=== PATIENT | male | born 1975 | race Caucasian/White ===

== ENCOUNTER → 2017-02-09 | Outpatient (REF) | payer OTHER ==
[~2017-02-09] MED LIST: LISI20TA3 PO; NICO14PA TD
== END ==
LOC: M SFHCCLAY 14:29
PROVIDERS: ATTEND Nurse Practitioner
DX: M25.571 Pain in right ankle and joints of right foot (principal)

== ENCOUNTER → 2017-02-14 | Outpatient (CLI) | payer OTHER ==
[2017-02-14 20:28] LABS: BASO % 0.5 % (0.0-1.0); EOS # 0.1 K/mm3 (0.0-0.50); EOS % 1.8 % (0.0-3.0); LARGE UNSTAINED CELL # 0.1 K/mm3 (0.0-0.4); LARGE UNSTAINED CELL % 1.8 % (0.0-4.0); LYMPH # 1.9 K/mm3 (1.5-4.5); LYMPH % 25.8 % (24.0-44.0); MEAN CORPUSCULAR HEMOGLOBIN 33.1 pg (27.0-33.0); MEAN CORPUSCULAR VOLUME 94.7 fl (80.0-96.0); MONO # 0.7 K/mm3 (0.0-0.8); MONO % 9.9 % (0.0-5.0); NEUTROPHILS # 4.2 K/mm3 (1.8-7.7); NEUTROPHILS % 60.2 % (36.0-66.0); PLATELET COUNT, AUTOMATED 276 k/mm3 (150-450); WHITE BLOOD COUNT 6.9 K/mm3 (4.0-10.0)
[2017-02-14 21:32] LABS: ERYTHROCYTE SEDIMENTATION RATE 3 mm/hr (0-15)
[2017-02-17 00:06] LABS: Lyme Disease IgG/IgM Antibodie <0.91 ISR (0.00-0.90); Lyme Disease IgM Ab Quantitati <0.80 index (0.00-0.79)
== END ==
LOC: M WUC 12:39
PROVIDERS: ATTEND Orthopaedic Surgery
DX: M25.571 Pain in right ankle and joints of right foot (principal)

== ENCOUNTER → 2017-07-05 | Outpatient (CLI) | payer OTHER ==
[2017-07-05 13:40] LABS: ALBUMIN 4.1 GM/DL (3.2-5.2); ALBUMIN/GLOBULIN RATIO 1.28 (1.00-1.93); ALKALINE PHOSPHATASE 65 U/L (45-117); ALT/SGPT 79 U/L (12-78); ANION GAP 9 MEQ/L (8-16); AST/SGOT 36 U/L (7-37); BILIRUBIN,TOTAL 0.5 MG/DL (0.2-1.0); BLOOD UREA NITROGEN 8 MG/DL (7-18); CALCIUM LEVEL 9.8 MG/DL (8.5-10.1); CARBON DIOXIDE LEVEL 26 MEQ/L (21-32); CHLORIDE LEVEL 106 MEQ/L (98-107); CHOLESTEROL LEVEL 210 MG/DL (<200); CREATININE FOR GFR 0.99 MG/DL (0.70-1.30); GLOMERULAR FILTRATION RATE > 60.0 (>60); GLUCOSE, FASTING 108 MG/DL (70-105); POTASSIUM SERUM 4.5 MEQ/L (3.5-5.1); SODIUM LEVEL 141 MEQ/L (136-145); TOTAL PROTEIN 7.3 GM/DL (6.4-8.2); TRIGLYCERIDES LEVEL 77 MG/DL (<150)
== END ==
LOC: M WUC 08:58
PROVIDERS: ATTEND Family Medicine
DX: I10 Essential (primary) hypertension (principal); R68.82 Decreased libido

== ENCOUNTER → 2018-10-05 | Outpatient (CLI) | payer BC ==
--- NOTE | 2018-10-05 15:09 | REP ---
RIGHT SHOULDER, COMPLETE: 10/05/2018. Clinical history: Shoulder pain, strain. Findings: No prior shoulder exam. AP portable chest 07/04/2016 shows a small portion of the shoulder. AC joint shows no abnormal widening of the joint space or elevation of the clavicle. There is minimal inferior spurring from the acromion and the glenoid representing very minimal degenerative change. No subluxation or dislocation. No abnormal soft tissue calcifications. No visible fracture. Impression: 1. Very minimal degenerative changes of the shoulder as described without fracture, avulsion, subluxation, abnormal soft-tissue calcification or other acute finding. Electronically Signed by Joshua Rice MD 10/05/2018 05:52 P
== END ==
LOC: M WUC 13:00
PROVIDERS: ATTEND Physician Assistant
DX: S46.011D Strain of muscle(s) and tendon(s) of the rotator cuff of right shoulder, subsequent encounter (principal)

== ENCOUNTER 2019-08-28 15:21 | Emergency (ER) | payer BC ==
[~2019-08-28] VITALS: Ht 167.6 cm; Wt 79.3 kg
[~2019-08-28 15:21] MED LIST changes: +LISI20TA20 PO; -LISI20TA3 PO
[2019-08-28 15:53] LABS: VENOUS BASE EXCESS -3.3 (-2.0-2.0); VENOUS O2 SATURATION 35.6 % (60.0-80.0); VENOUS PARTIAL PRESSURE CO2 50.8 mmHg (38.0-50.0); VENOUS PARTIAL PRESSURE O2 23.5 mmHg (30.0-50.0); VENOUS PH 7.292 UNITS (7.330-7.430); VENOUS STANDARD HCO3 20.1 MEQ/L; VENOUS TOTAL CO2 25.5 MEQ/L (24.0-28.0)
[2019-08-28 15:54] LABS: BASO # 0.1 10^3/uL (0.0-0.2); BASO % 0.5 % (0.0-1.0); EOS % 0.3 % (0.0-3.0); HEMATOCRIT 52.7 % (42.0-52.0); LYMPH # 1.9 10^3/uL (1.5-5.0); LYMPH % 20.3 % (24.0-44.0); MEAN CORPUSCULAR HEMOGLOBIN 32.3 pg (27.0-33.0); MEAN CORPUSCULAR HGB CONC 32.3 g/dl (32.0-36.5); MONO # 0.9 10^3/uL (0.0-0.8); MONO % 9.6 % (0.0-5.0); NEUTROPHILS # 6.4 10^3/uL (1.5-8.5); PLATELET COUNT, AUTOMATED 292 10^3/uL (150-450); RED BLOOD COUNT 5.27 10^6/uL (4.30-6.10); WHITE BLOOD COUNT 9.2 10^3/uL (4.0-10.0)
[2019-08-28 15:58] LABS: INR 1.17; PROTHROMBIN TIME 14.6 SECONDS (11.8-14.0)
[2019-08-28] MEDS ORDERED: METOPROLOL TART 25 MG TABLET PO ONE (16:00)
[2019-08-28] MEDS ORDERED: FUROSEMIDE 20 MG/2 ML VIAL (J1940) IV ONE (16:00)
[2019-08-28] MEDS ORDERED: ASPIRIN 81 MG CHEW TABLET PO ONE (16:00)
[2019-08-28] MEDS: METOPROLOL 5 MG/5 ML VIAL IV SCH ×3 (16:05→16:42)
[2019-08-28 16:11] LABS: ALBUMIN 3.3 GM/DL (3.2-5.2); ALT/SGPT 88 U/L (12-78); BILIRUBIN,DIRECT 0.3 MG/DL (0.0-0.2); BILIRUBIN,TOTAL 1.1 MG/DL (0.2-1.0); BLOOD UREA NITROGEN 17 MG/DL (7-18); CALCIUM LEVEL 9.1 MG/DL (8.5-10.1); CARBON DIOXIDE LEVEL 25 MEQ/L (21-32); CHLORIDE LEVEL 105 MEQ/L (98-107); CK-MB VALUE MASS 5.5 NG/ML (<3.6); CPK CREATINE PHOSPHOKINASE 257 U/L (39-308); FREE T4 0.89 NG/DL (0.76-1.46); GLOMERULAR FILTRATION RATE > 60.0 (>60); GLUCOSE, FASTING 119 MG/DL (70-100); LIPASE 96 U/L (73-393); MB/CK RELATIVE INDEX 2.14 (< OR =4); NT-PRO BNP 6161 PG/ML (<125); POTASSIUM SERUM 3.9 MEQ/L (3.5-5.1); SODIUM LEVEL 139 MEQ/L (136-145); TOTAL PROTEIN 6.3 GM/DL (6.4-8.2); TROPONIN I 0.04 NG/ML (< 0.10)
[2019-08-28 16:21] LABS: ETHYL ALCOHOL (ETHANOL) < 0.003 % (0.000-0.010)
--- NOTE | 2019-08-28 16:23 | REP ---
Clinical: Chest pain . Comparison: 07/04/2016 . Technique: PA and lateral. Findings: The mediastinum and cardiac silhouette are able cardiomegaly is again suspected. The lung glover are clear and without acute consolidation, effusion, or pneumothorax. The skeletal structures are intact and normal. Impression: 1. Cardiomegaly again suggested. 2. No focal consolidation or effusion. Electronically Signed by Jose Alexandre MD 08/28/2019 04:14 P
[2019-08-28 16:42] VITALS: BP 130/101
[2019-08-28] MEDS ORDERED: KETOROLAC 30 MG/ML VIAL (J1885) IV ONE (17:00)
[2019-08-28 18:03] LABS: MAGNESIUM LEVEL 1.9 MG/DL (1.8-2.4)
--- NOTE | 2019-08-28 18:11 | REPVR ---
PROCEDURE INFORMATION: Exam: CT Abdomen And Pelvis Without Contrast Exam date and time: 08/28/2019 5:06 PM Age: 44 years old Clinical indication: Abdominal pain; Generalized; Additional info: Flank pain TECHNIQUE: Imaging protocol: Computed tomography of the abdomen and pelvis without contrast. Radiation optimization: All CT scans at this facility use at least one of these dose optimization techniques: automated exposure control; mA and/or kV adjustment per patient size (includes targeted exams where dose is matched to clinical indication); or iterative reconstruction. COMPARISON: No relevant prior studies available. FINDINGS: Lungs: RIGHT posterior pulmonary partial passive atelectasis. Pleural space: Small RIGHT pleural effusion. Heart: Small anterior pericardial effusion. Liver: Normal. No mass. Gallbladder and bile ducts: Normal. No calcified stones. No ductal dilation. Pancreas: Moderate pancreatic atrophy. Spleen: Normal. No splenomegaly. Adrenals: Normal. No mass. Kidneys and ureters: LEFT renal lower pole 1.2 mm calyceal calculus. Stomach and bowel: Unremarkable. No obstruction. No mucosal thickening. Appendix: No evidence of appendicitis. Intraperitoneal space: Unremarkable. No free air. No significant fluid collection. Vasculature: Moderate abdominal aortic atherosclerotic calcification without aneurysm. The iliac arteries show mild bilateral atherosclerotic calcifications without evidence of aneurysm. Prominent SVC and bilateral iliac veins suggesting elevated systemic venous pressures. Atherosclerotic calcifications are present involving the RCA coronary artery. Lymph nodes: Small LEFT infrarenal para-aortic lymph nodes measuring up to 11.4 mm short axis. Bladder: Unremarkable as visualized. Reproductive: Unremarkable as visualized. Bones/joints: L4-5 and L5-S1 spondylosis with bilateral neural foraminal stenosis. Soft tissues: Mild anasarca. Other findings: Mild nonspecific presacral edema. IMPRESSION: 1. Mild LEFT renal calyceal lithiasis. 2. Mild nonspecific presacral edema. 3. Prominent SVC and bilateral iliac veins suggesting elevated systemic venous pressures. 4. Coronary atherosclerosis. 5. Small RIGHT pleural effusion. 6. Small anterior pericardial effusion. Electronically signed by: Trung Morataya On 08/28/2019 18:10:58 PM
[2019-08-28 19:00] VITALS: BP 137/99
[2019-08-28] MEDS ORDERED: ONDANSETRON 4MG/2ML VIAL (J2405) IV ONE (19:30)
--- NOTE | 2019-08-28 20:23 | ECGEPIP ---
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
[2019-08-30 09:33] LABS: HEPATITIS B SURFACE ANTIGEN NEGATIVE (NEGATIVE)
[2019-08-30 09:59] LABS: HEPATITIS C VIRUS ABY INDEX 0.2 INDEX (<0.8)
[2019-08-30 10:00] LABS: HEPATITIS B CORE ANTIBODY IGM NEGATIVE (NEGATIVE)
[2019-08-30 10:02] LABS: HEPATITIS A ANTIBODY IGM NEGATIVE (NEGATIVE)
== END 2019-08-28 19:20 | disposition short-term general hospital (02) ==
LOC: M ED 15:21
DX: I47.2 Ventricular tachycardia (principal); I50.9 Heart failure, unspecified; I31.3 Pericardial effusion (noninflammatory); I11.0 Hypertensive heart disease with heart failure; F17.210 Nicotine dependence, cigarettes, uncomplicated
CPT/HCPCS: 71046; 74176; 80048; 80076; 82550; 82553; 82803; 83690; 83735; 83880; 84439; 84443; 84484; 85025; 85610; 86705; 86709; 86803; 87340; 93005; 93041; 96374; 96375; 99291; G0480; J1940; J2405

== ENCOUNTER → 2019-10-04 | Outpatient (CLI) | payer BC ==
[2019-10-04 14:01] LABS: BLOOD UREA NITROGEN 11 MG/DL (7-18); CALCIUM LEVEL 8.8 MG/DL (8.5-10.1); CARBON DIOXIDE LEVEL 30 MEQ/L (21-32); CHLORIDE LEVEL 105 MEQ/L (98-107); CREATININE FOR GFR 0.69 MG/DL (0.70-1.30); GLOMERULAR FILTRATION RATE > 60.0 (>60); GLUCOSE, FASTING 78 MG/DL (70-100); POTASSIUM SERUM 4.1 MEQ/L (3.5-5.1); SODIUM LEVEL 140 MEQ/L (136-145)
== END ==
LOC: M PLALAB 11:00
PROVIDERS: ATTEND Physician Assistant
DX: I42.6 Alcoholic cardiomyopathy (principal)

== ENCOUNTER → 2019-10-11 | Outpatient (REF) | payer BC | LOC: M SMT 16:52 | PROVIDERS: ATTEND Nurse Practitioner Family | DX: R10.819 Abdominal tenderness, unspecified site (principal) ==

== ENCOUNTER → 2019-12-06 | Outpatient (CLI) | payer BC ==
--- NOTE | 2019-12-06 14:36 | REP ---
ULTRASOUND ANTERIOR ABDOMINAL WALL: Real-time sonographic evaluation of the anterior abdominal wall performed with special attention paid to the infraumbilical region where there is pain. There is no evidence of anterior abdominal wall defect in the region of the umbilicus or inferiorly. Scattered soft tissue edema is seen along the incision site at that location. No mass or fluid collection is seen. IMPRESSION: No evidence of anterior abdominal wall hernia in the region of the umbilicus or infraumbilical region. There appears to be edema in the soft tissues along the prior surgical incision. Electronically Signed by Richard Stone MD 12/06/2019 03:00 P
== END ==
LOC: M RAD 12:24
PROVIDERS: ATTEND Physician Assistant Surgical
DX: R10.9 Unspecified abdominal pain (principal)

== ENCOUNTER → 2019-12-17 | Outpatient (REF) | payer BC ==
[2019-12-17 13:38] LABS: CHOLESTEROL RISK RATIO 2.202 (<5)
== END ==
LOC: M SFHCPLAZ 09:50
PROVIDERS: ATTEND Family Medicine
DX: Z00.00 Encounter for general adult medical examination without abnormal findings (principal)

== ENCOUNTER 2020-06-29 20:58 | Inpatient (IN) | payer BC, MEDICAID, OTHER, SELFPAY ==
[~2020-06-29] VITALS: Ht 167.6 cm; Wt 82.7 kg
[2020-06-29] MEDS ORDERED: MORPHINE 4 MG/ML 1ML VIAL/SYRINGE (J2270) IV ONE (21:30)
[2020-06-29] MEDS ORDERED: ONDANSETRON 4MG/2ML VIAL IV ONE (21:30)
[2020-06-29] MEDS ORDERED: SPIRONOLACTONE 25 MG TAB PO ONE (21:30)
[2020-06-29] MEDS ORDERED: CARVedilol 12.5 MG TAB PO ONE (21:30)
[2020-06-29] MEDS ORDERED: CARV25TA (21:46)
[2020-06-29] MEDS ORDERED: SPIR-10 (21:46)
[2020-06-29] MEDS ORDERED: DOCU-129 (21:46)
[2020-06-29] MEDS ORDERED: ENTR1TAB7 (21:46)
[2020-06-29] MEDS ORDERED: WARF-20 (21:46)
[2020-06-29 21:51] LABS: BASO % 0.2 % (0.0-1.0); HEMATOCRIT 47.3 % (42.0-52.0); HEMOGLOBIN 16.2 g/dl (13.5-17.5); LYMPH # 0.8 10^3/uL (1.5-5.0); LYMPH % 7.2 % (24.0-44.0); MEAN CORPUSCULAR HEMOGLOBIN 32.3 pg (27.0-33.0); MEAN CORPUSCULAR HGB CONC 34.2 g/dl (32.0-36.5); MEAN CORPUSCULAR VOLUME 94.4 fl (80.0-96.0); MONO # 1.2 10^3/uL (0.0-0.8); MONO % 10.7 % (0.0-5.0); NEUTROPHILS # 9.1 10^3/uL (1.5-8.5); NEUTROPHILS % 81.5 % (36.0-66.0); PLATELET COUNT, AUTOMATED 210 10^3/uL (150-450); RED BLOOD COUNT 5.01 10^6/uL (4.30-6.10); WHITE BLOOD COUNT 11.2 10^3/uL (4.0-10.0)
[2020-06-29] MEDS: NS 1,000 ML IV SCH (21:59)
[2020-06-29 22:01] LABS: INR 1.16; PROTHROMBIN TIME 15.1 SECONDS (12.5-14.3)
[2020-06-29 22:02] LABS: PARTIAL THROMBOPLASTIN TIME 27.1 SECONDS (24.2-38.5)
--- NOTE | 2020-06-29 22:02 | REPVR ---
PROCEDURE INFORMATION: Exam: XR Chest, 1 View Exam date and time: 06/29/20 (9:32pm) Age: 44 years old Clinical indication: Hypertension TECHNIQUE: Imaging protocol: XR of the chest Views: 1 view COMPARISON: Chest films of 08/28/19 FINDINGS: Comparison is made with chest films done on 08/28/19. Stable cardiomegaly. Previous sternotomy. S/P cardiac valve replacement. Atrial appendage clip in place. AICD device, with shock coil in the right ventricle. No focal infiltrates. No pleural effusions. No gross cardiac failure. No pneumothorax. IMPRESSION: No acute chest pathology. Lung glover are clear. Stable cardiomegaly. No gross cardiac failure. See additional comments above. Electronically signed by: Mela Haque On 06/29/2020 22:01:22 PM
[2020-06-29 22:26] LABS: ALBUMIN 4.2 GM/DL (3.2-5.2); ALT/SGPT 45 U/L (12-78); BILIRUBIN,DIRECT 0.3 MG/DL (0.0-0.2); BILIRUBIN,TOTAL 1.1 MG/DL (0.2-1.0); BLOOD UREA NITROGEN 18 MG/DL (7-18); CALCIUM LEVEL 10.1 MG/DL (8.5-10.1); CARBON DIOXIDE LEVEL 21 MEQ/L (21-32); CHLORIDE LEVEL 109 MEQ/L (98-107); CK-MB VALUE MASS 2.2 NG/ML (<3.6); CPK CREATINE PHOSPHOKINASE 131 U/L (39-308); CREATININE FOR GFR 1.28 MG/DL (0.70-1.30); GLOMERULAR FILTRATION RATE > 60.0 (>60); GLUCOSE, FASTING 127 MG/DL (70-100); LIPASE 52 U/L (73-393); MB/CK RELATIVE INDEX 1.68 (< OR =4); SODIUM LEVEL 140 MEQ/L (136-145); TOTAL PROTEIN 7.5 GM/DL (6.4-8.2); TROPONIN I < 0.02 NG/ML (< 0.10)
[2020-06-29] MEDS ORDERED: LORazepam 2 MG/ML VIAL IV STA (22:50)
[2020-06-29] MEDS: GASTROGRAFIN SOLUTION 30ML PO SCH (22:53)
[2020-06-29] MEDS ORDERED: NS 1,000 ML IV ONE (23:00)
[2020-06-30] MEDS: GASTROGRAFIN SOLUTION 30ML PO SCH (00:06)
[2020-06-30 00:14] LABS: ETHYL ALCOHOL (ETHANOL) 0.003 % (0.000-0.010)
--- NOTE | 2020-06-30 02:06 | REPVR ---
PROCEDURE INFORMATION: Exam: CT Abdomen And Pelvis With Contrast Exam date and time: 06/30/2020 1:13 AM Age: 44 years old Clinical indication: Vomiting; Abdominal pain; Generalized TECHNIQUE: Imaging protocol: Computed tomography of the abdomen and pelvis with intravenous contrast. Radiation optimization: All CT scans at this facility use at least one of these dose optimization techniques: automated exposure control; mA and/or kV adjustment per patient size (includes targeted exams where dose is matched to clinical indication); or iterative reconstruction. Contrast material: ISOVUE 370; Contrast volume: 100 ml; Contrast route: INTRAVENOUS (IV); COMPARISON: CT ABD PELVIS W/O CONTRAST 08/28/2019 5:04 PM FINDINGS: Tubes, catheters and devices: An ICD lead is noted terminating in the right ventricle. Lungs: There is mild bibasilar atelectasis. Incidental note is made of a 2 mm juxtapleural nodule in the right middle lobe, which is unchanged compared to the prior CT on 08/28/2019 and for which further follow-up is not indicated. The lungs were not fully imaged. Heart: An aortic valve prosthesis, mitral valve prosthesis, and left atrial appendage clip are noted. No cardiomegaly or pericardial effusion is seen. There are coronary artery calcifications. Mediastinal space: There is ingested contrast material in the esophagus, which may indicate gastroesophageal reflux. Liver: The attenuation of the liver is more than 40 Hounsfield units lower in attenuation compared to the spleen, which is compatible with fatty liver infiltration. Incidental note is made of a 4 mm cyst in the superior portion of the right hepatic lobe, for which follow-up imaging is not indicated. The contour of the liver is smooth. No hepatomegaly. Gallbladder and bile ducts: The gallbladder is distended. No calcified gallstones are seen. No gallbladder wall thickening, pericholecystic fluid, or pericholecystic inflammatory changes are identified. No dilation of the bile ducts is noted. No calcified stones are seen in the common bile duct. Pancreas: Normal. No dilation of the main pancreatic duct is noted. There is no inflammatory fat stranding around the pancreas to suggest acute pancreatitis. Spleen: Normal. No splenomegaly is noted. Adrenal glands: Normal. No adrenal mass is noted. Kidneys and ureters: The kidneys are normal in appearance. No renal lesion is noted. No stones are noted in the kidneys or ureters. There is no hydronephrosis or hydroureter. There are no wedge-shaped areas of low attenuation in the kidneys to suggest pyelonephritis. There is no renal abscess or perinephric fluid collection. Stomach and bowel: The stomach and small bowel are unremarkable. Postoperative changes are noted from a right hemicolectomy and ileocolonic anastomosis. No anastomotic leak is noted. No perforated viscus, bowel obstruction, colitis, or diverticulitis is noted. Appendix: The appendix has been removed. Intraperitoneal space: No free air. No ascites. No asbcess. Retroperitoneal space: No fluid collection. No mass. Vasculature: There is a filling defect in the segmental pulmonary artery supplying the superior segment of the right lower lobe, which is compatible with an acute pulmonary embolism (images 1-3 of the axial series 201). The pulmonary arteries were not fully imaged. There is also a small filling defect in the superior vena cava, which is compatible with a nonocclusive thrombus (images 1-6 of the axial series 201). The superior vena cava was not fully imaged. The abdominal aorta is patent, normal in caliber, and there is no dissection. The iliac arteries, common femoral arteries, renal arteries, celiac artery, superior mesenteric artery, and inferior mesenteric artery are patent. There are mild to moderate atherosclerotic calcifications. Lymph nodes: No enlarged lymph nodes. Urinary bladder: There is thickening of the wall of the partially distended urinary bladder. No calculi are noted in the bladder. Reproductive: The prostate gland and seminal vesicles are unremarkable. Bones/joints: There is no fracture or dislocation. No suspicious osteolytic or osteoblastic lesion. There are degenerative changes involving the lumbar spine. Median sternotomy suture wires are in place. Soft tissues: There is a midline vertical incision scar in the anterior abdominal wall. There is a small fat containing ventral hernia located approximately 2 cm above the umbilicus and just to the right of a midline vertical incisional scar. No soft tissue fluid collection is noted. IMPRESSION: 1. Acute pulmonary embolism in the segmental pulmonary artery supplying the superior segment of the right lower lobe. 2. Nonocclusive thrombus in the superior vena cava. 3. Evidence for gastroesophageal reflux. 4. Small fat containing ventral hernia located approximately 2 cm above the umbilicus and just to the right of a midline vertical incisional scar. 5. Status post right hemicolectomy and ileocolonic anastomosis. No bowel obstruction. 6. Thickening of the wall of the urinary bladder, which may be secondary to its partially distended state, bladder wall hypertrophy, or cystitis. Correlation with urinalysis is suggested. Electronically signed by: Tomas Hahn On 06/30/2020 02:06:06 AM
[2020-06-30] MEDS ORDERED: HEPARIN DRIP 25,000 UNITS in IV 1 EA IV SCH (02:24)
[2020-06-30] MEDS ORDERED: HEPARIN SOD (PORCINE) 5000UNITS/ML 1ML VIAL/SYRINGE IV ONE (02:30)
[2020-06-30 02:59] LABS: NT-PRO BNP 4901 PG/ML (<125)
[2020-06-30] MEDS ORDERED: LORazepam 2 MG TAB PO PRN (03:00)
[2020-06-30] MEDS: THIAMINE 100 MG TAB PO SCH ×2 (03:19→10:16)
--- NOTE | 2020-06-30 03:27 | REPVR ---
PROCEDURE INFORMATION: Exam: US Duplex Lower Extremity Veins, Bilateral Exam date and time: 06/30/20 (2:49am) Age: 44 years old Clinical indication: Screening exam. CT scan shows pulmonary embolism. Evaluate for DVT. TECHNIQUE: Imaging protocol: Real-time duplex ultrasound of the extremities with 2-D mckeon scale, color Doppler flow and spectral waveform analysis with image documentation. Complete exam focused on the bilateral lower extremity veins. COMPARISON: No relevant prior studies available FINDINGS: Right deep veins: Unremarkable. The common femoral, femoral, proximal profunda femoral and popliteal veins are patent without thrombus. Normal Doppler waveforms. Normal compressibility and/or augmentation response. Right superficial veins: Saphenofemoral junction is patent without thrombus. Left deep veins: Unremarkable. The common femoral, femoral, proximal profunda femoral and popliteal veins are patent without thrombus. Normal Doppler waveforms. Normal compressibility and/or augmentation response. Left superficial veins: Saphenofemoral junction is patent without thrombus. Soft tissues: Unremarkable. IMPRESSION: No evidence of deep vein thrombosis (both legs examined). Electronically signed by: Mela Haque On 06/30/2020 03:26:42 AM
[2020-06-30] MEDS ORDERED: ONDANSETRON 4MG/2ML VIAL IV PRN ×2 (03:30→22:00)
[2020-06-30] MEDS ORDERED: ENTR1TAB7 PO (03:36)
[2020-06-30] MEDS ORDERED: WARF-20 PO ×2 (03:36)
[2020-06-30] MEDS ORDERED: CARV25TA PO (03:36)
[2020-06-30] MEDS ORDERED: ACET25TA12 PO (03:36)
[2020-06-30] MEDS ORDERED: SPIR-10 PO (03:36)
[2020-06-30] MEDS ORDERED: DOCU100C16 PO (03:36)
[2020-06-30 03:50] VITALS: BP 139/89
--- NOTE | 2020-06-30 03:53 | HPEPDOC ---
[facility] Medical History & Physical Date of Admission Jun 30, 2020 Date of Service: Jun 30, 2020 Primary Care Physician: HUSSEIN CHACON DO Attending Physician: KILO MARCIAL MD History and Physical CHIEF COMPLAINT: Abdominal pain and vomiting HISTORY OF PRESENT ILLNESS: Patient is a 44-year-old male who presented to the emergency department with a 2 to 3 day history of worsening abdominal pain as well as a 24 hour history of vomiting. Patient says that he started feeling nauseous at 4 AM on 06/29/2020 and has been vomiting since. Patient says is small trash can in the bathroom which is filled up about two [address] with vomit. Patient states that his vomit is yellow and does not have any blood or coffee-ground material in it. Patient denies having any diarrhea at this time. Patient does have a history of dominant surgery rehabilitation hemicolectomy for bowel ischemia. Patient says he feels a lump in his abdomen that is worse when he sits up. Patient states he's not been able to keep anything down over the last 24 hours and this was the first day that he was unab le to take his medications. 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 Patient states he's been taking the same dose of his warfarin but has not had an INR drawn in a few months. Patient denies have any difficulty breathing. Patient states he's had shoulder pain in his right shoulder blade but this has been present for many months. PAST MEDICAL HISTORY: 1. Heart failure with reduced ejection fraction. 2. Alcoholic cardiomyopathy. 3. Severe mitral regurgitation status post mitral bioprosthetic valve replacement. 4. Moderate aortic regurgitation status post aortic bioprosthetic valve replace ment 5. Hypertension 6. History of alcoholism PAST SURGICAL HISTORY: 1. Bioprosthetic mitral valve replacement. 2. Bioprosthetic aortic valve replacement. 3. Right hemicolectomy secondary to colonic ischemia and pseudoobstruction. 4. AICD SOCIAL HISTORY: Patient currently lives at home alone. Patient had quit smoking however, due to lack of insurance and unable to get nicotine patches he is now smoking 10-15 cigarettes a day. Patient says he does drink about 2-3 times a week when he does drink he drinks 6-10 beers. Patient uses marijuana but denies any other illicit drug use. 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 FAMILY HISTORY: Both parents are alive, mom has lupus ALLERGIES: Please see below. REVIEW OF SYSTEMS: General: Patient denies fevers HEENT: Patient denies headaches Cardiovascular: Patient denies chest pain Respiratory: Patient denies shortness of breath, cough GI: Patient denies abdominal pain, nausea, vomiting, diarrhea : Patient denies increased frequency or pain with urination Extremities: Patient denies swelling or pain in extremities Neurological: Patient denies numbness or tingling in legs Skin: Patient denies any new rashes or lesions. Hematologic: Patient denies any easy bruising. Lymphatic: Patient denies any lumps lumps or bumps in neck, axilla, or groin HOME MEDICATIONS: Please see below. PHYSICAL EXAMINATION: VITAL SIGNS: See below General: Alert and oriented male patient who was sitting on the stretcher in the emergency department when I walked in the room. Patient did not appear to be in any acute distress. HEENT: Normocephalic, atraumatic, moist mucous membranes. Neck: No lymphadenopathy or thyromegaly Cardiac: Regular rate and rhythm, 1/6 systolic murmur is heard both over the right second intercostal space and over the apex. Pulm: Clear to auscultation bilaterally. No wheezes, rhonchi, rales Abd: Nondistended, mildly tender to palpation worse on the left lower quadrant and in the epigastric area. There is a reducible incisional hernia present superior to the umbilicus that is more pronounced patient contracts his abdominal muscles. Ext: No edema bilateral lower extremities, 2/4 posterior tibial and dorsalis pedis pulses bilaterally LABORATORY DATA: See below. IMAGING: A chest x-ray performed on 06/29/2020 was reported to show no acute chest pathology, lung glover are clear, stable cardiomegaly, no gross cardiac failure. A CT of the abdomen and pelvis with IV and oral contrast performed on 06/29/2020 was reported to show acute pulmonary embolism in the segmental pulmonary artery supplying the superior segment of the right lower lobe. Nonocclusive thrombus in the superior vena cava, evidence for Gastroesophageal reflux, small fat- containing ventral hernia located approximately 2 cm above the umbilicus just to the right of midline vertical incisional scar. Status post right hemicolectomy with ileocolonic anastomosis, no bowel obstruction. Thickening of the wall of the urinary bladder which may be secondary to his partial dissented state, bladder wall hypertrophy, or cystitis correlation with urinalysis is suggestive. Duplex lower extremity venous ultrasound performed of the bilateral lower extremities on 06/30/2020 was reportedly showed no evidence of DVT bilaterally MICROBIOLOGY: Please see below. ASSESSMENT: Patient is a 44-year-old male who presented to the hospital with abdominal pain with a 24 hour history of vomiting who was found to have a submassive pulmonary embolism. . PLAN: 1. Pulmonary embolism. Patient is on warfarin however, he has not followed up with the INR clinic for a few months due to lack of insurance. Patient has been taking his regular dose of warfarin since then both unable to take a dose this morning as he was vomiting. Patient's current INR was 1.16. Because of this, the patient was started on a heparin drip so that he can be bridged to a therapeutic range on his warfarin. Patient was advised to follow-up with the INR clinic once he is discharged. 2. Nausea/vomiting. Patient stated last time he had nausea/vomiting like this is when he was found to have severe heart failure and a pericardial effusion back in August 2019. Patient says that the vomiting has slowed down and he is only vomited once since being in the emergency department. Patient does not have any evidence of obstruction. Zofran has been given to the patient and we will advance the patient's diet as tolerated. 3. Heart failure with reduced ejection fraction. Patient currently appears compensated on exam. Patient had an echocardiogram that was performed on 12/12/2019 which was reported to show a normal left ventricular size with mild life in ventricular hypertrophy and severe global hypokinesis. Estimated left ventricular ejection fraction is 15-20%. Grade 2 diastolic dysfunction. Normally functioning bioprosthesis in aortic position. Normal functioning bioprosthesis and mitral position. Likely elevated central venous pressure moderate pulmonary hypertension. Borderline dilated aortic root (3.8 centimeter). Compared to echocardiogram report from August 2019 there appears to be further decline in left restrictive systolic function, otherwise studies very similar. At this time, we will continue with the patient's home medications. 4. History of alcoholism, recent alcohol use. Patient says his last time drinking any alcohol was on 06/27/2020. Because of this, and the patient's history of heavy alcohol abuse, patient has been placed on CIWA protocol. We will continue to monitor the patient. 5. Hypertension. We'll continue with the patient's home medications. 6. DVT prophylaxis: Patient is currently on a heparin drip. 7. CODE STATUS: Full code Vital Signs Vital Signs Date Time Temp Pulse Resp B/P (MAP) Pulse Ox O2 Delivery O2 Flow Rate FiO2 06/30/20 02:00 133/75 (94) 06/30/20 01:58 86 19 96 Room Air 06/29/20 20:58 96.3 Laboratory Data Labs 24H Laboratory Tests 2 06/29/20 21:36: Prothrombin Time 15.1H, Prothromb Time International Ratio 1.16, Activated Partial Thromboplast Time 27.1, Anion Gap 10, Glomerular Filtration Rate > 60.0, Calcium Level 10.1, Total Bilirubin 1.1H, Direct Bilirubin 0.3H, Aspartate Amino Transf (AST/SGOT) 28, Alanine Aminotransferase (ALT/SGPT) 45, Alkaline Phosphat ase 66, Total Creatine Kinase 131, Creatine Kinase MB 2.2, Creatine Kinase MB Relative Index 1.68, Troponin I < 0.02, OM-Cjw-Y-Type Natriuretic Peptide 4901H, Total Protein 7.5, Albumin 4.2, Albumin/Globulin Ratio 1.3, Lipase 52L, Ethyl Alcohol Level 0.003 06/29/20 21:37: Immature Granulocyte % (Auto) 0.4, Neutrophils (%) (Auto) 81.5H, Lymphocytes (%) (Auto) 7.2L, Monocytes (%) (Auto) 10.7H, Eosinophils (%) (Auto) 0.0, Basophils (%) (Auto) 0.2, Neutrophils # (Auto) 9.1H, Lymphocytes # (Auto) 0.8L, Monocytes # (Auto) 1.2H, Eosinophils # (Auto) 0.0, Basophils # (Auto) 0.0, Nucleated Red Blood Cells % (auto) 0.0 CBC/BMP Laboratory Tests 06/29/20 21:36 06/29/20 21:37 Home Medications Scheduled Acetaminophen/Diphenhydramine (Acetaminophen Pm Caplet) 1 Each Tablet, 2 TAB PO QHS Carvedilol (Carvedilol) 25 Mg Tablet, 25 MG PO BID Docusate Sodium (Docusate Sodium) 100 Mg Capsule, 100 MG PO DAILY Sacubitril/Valsartan (Entresto 49 mg-51 mg Tablet) 1 Each Tablet, 1 TAB PO BID Spironolactone (Spironolactone) 25 Mg Tablet, 25 MG PO DAILY Warfarin Sodium (Warfarin Sodium) 4 Mg Tablet, 8 MG PO 4XWK Warfarin Sodium (Warfarin Sodium) 4 Mg Tablet, 4 MG PO 3XW Scheduled PRN Nitroglycerin (Nitrostat) 0.4 Mg Tab.subl, 0.4 MG SL NITRO PRN for CHEST PAIN Allergies Coded Allergies: No Known Drug Allergies (Verified Allergy, Unknown, 08/28/19) A-FIB/CHADSVASC A-FIB History Current/History of A-Fib/PAF?: No GME ATTESTATION GME ATTESTATION My faculty preceptor for this patient encounter was physically present during the encounter and was fully available. All aspects of the patient interview, examination, medical decision making process, and medical care plan development were reviewed and approved by the faculty preceptor. The faculty preceptor is aware and concurs with the plan as stated in the body of this note and will attest to such by his/her cosignature. ATTENDING NOTE TIME OF SERVICE 525AM I reviewed the H&P and agree with the findings as documented by . ALICIA MYERS DO Jun 30, 2020 03:53 KILO MARCIAL MD Jun 30, 2020 06:50
[2020-06-30] MEDS: NS 1,000 ML IV SCH (04:20)
[2020-06-30] MEDS ORDERED: NITR4TASL SL (04:38)
[2020-06-30 06:50] LABS: BASO % 0.2 % (0.0-1.0); EOS % 0.3 % (0.0-3.0); HEMATOCRIT 41.4 % (42.0-52.0); LYMPH # 1.6 10^3/uL (1.5-5.0); LYMPH % 16.4 % (24.0-44.0); MEAN CORPUSCULAR HEMOGLOBIN 33.1 pg (27.0-33.0); MEAN CORPUSCULAR HGB CONC 34.1 g/dl (32.0-36.5); MEAN CORPUSCULAR VOLUME 97.2 fl (80.0-96.0); MONO # 1.4 10^3/uL (0.0-0.8); MONO % 15.1 % (0.0-5.0); NEUTROPHILS # 6.4 10^3/uL (1.5-8.5); NEUTROPHILS % 67.4 % (36.0-66.0); PLATELET COUNT, AUTOMATED 164 10^3/uL (150-450); RED BLOOD COUNT 4.26 10^6/uL (4.30-6.10); WHITE BLOOD COUNT 9.5 10^3/uL (4.0-10.0)
[2020-06-30 06:59] LABS: HEMOGLOBIN 14.1 g/dl (13.5-17.5)
[2020-06-30 08:02] LABS: ALBUMIN 3.4 GM/DL (3.2-5.2); ALT/SGPT 38 U/L (12-78); BILIRUBIN,DIRECT 0.3 MG/DL (0.0-0.2); BILIRUBIN,TOTAL 1.1 MG/DL (0.2-1.0); BLOOD UREA NITROGEN 15 MG/DL (7-18); CALCIUM LEVEL 8.7 MG/DL (8.5-10.1); CARBON DIOXIDE LEVEL 24 MEQ/L (21-32); CHLORIDE LEVEL 108 MEQ/L (98-107); CREATININE FOR GFR 1.08 MG/DL (0.70-1.30); GLOMERULAR FILTRATION RATE > 60.0 (>60); GLUCOSE, FASTING 100 MG/DL (70-100); MAGNESIUM LEVEL 1.9 MG/DL (1.8-2.4); POTASSIUM SERUM 3.8 MEQ/L (3.5-5.1); SODIUM LEVEL 140 MEQ/L (136-145)
[2020-06-30] MEDS ORDERED: HEPARIN SOD (PORCINE) 5000UNITS/ML 1ML VIAL/SYRINGE IV PRN (09:00)
--- NOTE | 2020-06-30 09:30 | ECGEPIP ---
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
[2020-06-30] MEDS: HEPARIN DRIP 25,000 UNITS in IV 1 EA IV SCH (09:54)
[2020-06-30] MEDS: CARVedilol 12.5 MG TAB PO SCH ×2 (10:17→20:59)
[2020-06-30] MEDS: MULTIVITAMINS/MINERALS THERAP 1 TAB PO SCH (10:17)
[2020-06-30] MEDS: FOLIC ACID 1 MG TAB PO SCH (10:17)
[2020-06-30] MEDS: SPIRONOLACTONE 25 MG TAB PO SCH (10:17)
[2020-06-30] MEDS: ACETAMINOPHEN TAB 650MG DOSE (2X325MG) PO PRN ×2 (10:18→17:09)
[2020-06-30] MEDS: NICOTINE 14 MG/24 HR TRANSDERMAL TD SCH (10:18)
[2020-06-30] MEDS: DOCUSATE SODIUM 100 MG CAP PO SCH (10:18)
[2020-06-30 10:20] VITALS: BP 132/85
--- NOTE | 2020-06-30 10:59 | IPNPDOC ---
Text Note Date of Service The patient was seen on 06/30/20. 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 Patient had resolution of his symptoms. Upon arrival to emergency room, however, CT scan of his abdomen and pelvis had revealed there is a pulmonary embolism. His right lower lung. Patient reports that he has been on Coumadin as an outpatient but has been noncompliant for last 3 days. He also reports that he has not checked his INR in the last 2 months. Patient reports that he has lost insurance coverage. He has been admitted to hospital service for further evaluation.. Patient was seen and examined at the bedside. Currently patient denies any chest pain, shortness breath, palpitations, nausea, vomiting, abdominal pain, constipation, diarrhea, or urinary discomfort. Objective: Vitals (See below) General: Lying in bed, appears comfortable, AAOx3 HEENT: NC, AT CVS: +S1S2 Lungs: Fair air entry b/l, no appreciable wheezing, rhonchi or rales Abdomen: Soft, ND, NT Extremities: - Edema, - Calf tenderness Assessment and plan: Pulmonary embolism - etiology unclear - Patient is saturating well on room air - Patient has been noncompliant with his warfarin - INR subtherapeutic - Duplex US 06/30: No evidence of deep vein thrombosis (both legs examined). - Abdomen / Pelvis CT 06/30: 1. Acute pulmonary embolism in the segmental pulmonary artery supplying the superior segment of the right lower lobe. 2. Nonocclusive thrombus in the superior vena cava. 3. Evidence for gastroesophageal reflux. 4. Small fat containing ventral hernia located approximately 2 cm above the umbilicus and just to the right of a midline vertical incisional scar. 5. Status post right hemicolectomy and ileocolonic anastomosis. No bowel obstruction. 6. Thickening of the wall of the urinary bladder, which may be secondary to its partially distended state, bladder wall hypertrophy, or cystitis. Correlation with urinalysis is suggested. 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 - Mitral and Aortic bioprosthetic valve replacement (2/2 severe MR, Moderate AR) - No evidence of fluid overload - c/w Carvedilol, Spironolactone with hold parameters HTN - c/w Carvedilol, Spironolactone with hold parameters Alcoholism - c/w Thiamine, Folate, Multivitamins - Currently on [facility] protocol Nicotine dependence - Will start nicotine patch - Advised smoking cessation GI prophylaxis - Will start Protonix DVT prophylaxis - c/w Heparin drip VS,Fishbone, I+O VS, Fishbone, I+O Laboratory Tests 06/29/20 21:36 06/29/20 21:37 06/30/20 06:34 Vital Signs Date Time Temp Pulse Resp B/P (MAP) Pulse Ox O2 Delivery O2 Flow Rate FiO2 06/30/20 10:20 52 132/85 06/30/20 03:50 98.8 18 95 Room Air I&O- Last 24 Hours up to 6 AM 06/30/20 06:00 Intake Total 1220 ml Output Total 0 ml Balance 1220 ml FRANCO SMITH MD Jun 30, 2020 10:59
[2020-06-30] MEDS ORDERED: PANTOPRAZOLE 40MG TAB (PROTONIX) PO ONE (11:00)
[2020-06-30] MEDS: ENTRESTO 49-51MG TABLET (SACUBITRIL/VALSARTAN) PO SCH ×2 (12:11→21:02)
[2020-06-30 14:00] VITALS: BP_SYST 131; BP_DIAS 82; BP_DIAS 83
[2020-06-30] MEDS: WARFARIN SOD 4MG TAB PO SCH (17:04)
--- NOTE | 2020-06-30 17:50 | REP ---
INDICATION: abdominal pain. COMPARISON: None. TECHNIQUE: Single AP portable view of the abdomen and pelvis performed. FINDINGS: No dilated bowel loops are seen. There is no evidence of bowel obstruction. Contrast material in left colon and sigmoid colon is visualized and there is contrast material in the urinary bladder, from prior CT abdomen pelvis with oral and IV contrast performed earlier today. Metallic clips are seen in the right upper quadrant. There are degenerative changes of the lower lumbar spine. IMPRESSION: No bowel obstruction. <Electronically signed by Richard Stone > 06/30/20 0471
[2020-06-30 22:00] VITALS: BP 109/74
[2020-06-30] MEDS ORDERED: DICYCLOMINE 10 MG CAP PO PRN (22:00)
[2020-06-30] MEDS: RAMELTEON 8 MG TAB (ROZEREM) PO PRN (23:59)
[2020-07-01] MEDS: HEPARIN DRIP 25,000 UNITS in IV 1 EA IV SCH (04:23)
[2020-07-01 05:30] VITALS: BP 135/90
[2020-07-01 06:00] VITALS: BP 135/90
[2020-07-01 06:15] LABS: BASO % 0.3 % (0.0-1.0); EOS # 0.1 10^3/uL (0.0-0.5); EOS % 1.5 % (0.0-3.0); HEMATOCRIT 45.5 % (42.0-52.0); HEMOGLOBIN 15.6 g/dl (13.5-17.5); LYMPH # 1.3 10^3/uL (1.5-5.0); LYMPH % 19.2 % (24.0-44.0); MEAN CORPUSCULAR HEMOGLOBIN 33.5 pg (27.0-33.0); MEAN CORPUSCULAR HGB CONC 34.3 g/dl (32.0-36.5); MEAN CORPUSCULAR VOLUME 97.6 fl (80.0-96.0); MONO # 1.1 10^3/uL (0.0-0.8); MONO % 15.8 % (0.0-5.0); NEUTROPHILS # 4.3 10^3/uL (1.5-8.5); NEUTROPHILS % 62.8 % (36.0-66.0); PLATELET COUNT, AUTOMATED 153 10^3/uL (150-450); RED BLOOD COUNT 4.66 10^6/uL (4.30-6.10); WHITE BLOOD COUNT 6.8 10^3/uL (4.0-10.0)
[2020-07-01 06:25] LABS: INR 1.1; PROTHROMBIN TIME 14.4 SECONDS (12.5-14.3)
[2020-07-01 06:26] LABS: PARTIAL THROMBOPLASTIN TIME 65.5 SECONDS (24.2-38.5)
[2020-07-01 06:57] LABS: BLOOD UREA NITROGEN 12 MG/DL (7-18); CALCIUM LEVEL 8.9 MG/DL (8.5-10.1); CARBON DIOXIDE LEVEL 25 MEQ/L (21-32); CHLORIDE LEVEL 107 MEQ/L (98-107); CREATININE FOR GFR 0.85 MG/DL (0.70-1.30); GLOMERULAR FILTRATION RATE > 60.0 (>60); GLUCOSE, FASTING 97 MG/DL (70-100); POTASSIUM SERUM 4.1 MEQ/L (3.5-5.1); SODIUM LEVEL 138 MEQ/L (136-145)
[2020-07-01] MEDS: FOLIC ACID 1 MG TAB PO SCH (08:43)
[2020-07-01] MEDS: PANTOPRAZOLE 40MG TAB (PROTONIX) PO SCH (08:43)
[2020-07-01] MEDS: THIAMINE 100 MG TAB PO SCH ×2 (08:43→20:22)
[2020-07-01] MEDS: ENTRESTO 49-51MG TABLET (SACUBITRIL/VALSARTAN) PO SCH ×2 (08:44→20:22)
[2020-07-01] MEDS: MULTIVITAMINS/MINERALS THERAP 1 TAB PO SCH (08:44)
[2020-07-01] MEDS: DOCUSATE SODIUM 100 MG CAP PO SCH (08:44)
[2020-07-01] MEDS: CARVedilol 12.5 MG TAB PO SCH ×2 (08:45→20:22)
[2020-07-01] MEDS: NICOTINE 14 MG/24 HR TRANSDERMAL TD SCH (08:45)
[2020-07-01] MEDS: SPIRONOLACTONE 25 MG TAB PO SCH (08:45)
--- NOTE | 2020-07-01 08:51 | IPNPDOC ---
Text Note Date of Service The patient was seen on 07/01/20. 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 Patient had resolution of his symptoms. Upon arrival to emergency room, however, CT scan of his abdomen and pelvis had revealed there is a pulmonary embolism. His right lower lung. Patient reports that he has been on Coumadin as an outpatient but has been noncompliant for last 3 days. He also reports that he has not checked his INR in the last 2 months. Patient reports that he has lost insurance coverage. He has been admitted to hospital service for further evaluation.. Patient was seen and examined at the bedside. Patient is lying in bed, does not appear to be in any distress. Denies any chest pain, shortness breath, palpitations. Has not experience any nausea or vomiting. Does still report abdominal discomfort, has been urinating denies any diarrhea or bowel movements. Has been able to pass gas. Objective: Vitals (See below) General: Lying in bed, appears to be comfortable, in no acute distress, AAOx3 HEENT: NC, AT CVS: +S1S2 Lungs: Fair air entry b/l, no appreciable wheezing, rhonchi or rales Abdomen: Soft, non-distended, tenderness at RUQ Extremities: No appreciable edema, - Calf tenderness Assessment and plan: Pulmonary embolism - Saturating well on room air. Denies any chest pain, shortness of breath or palpitations - Patient has been noncompliant with his warfarin; he has been on warfarin for bioprosthetic aortic and mitral valves for 6 months post-procedure - Patient has last seen Dr. Trejo 04/16/2020 - INR subtherapeutic - Duplex US 06/30: No evidence of deep vein thrombosis (both legs examined). - Abdomen / Pelvis CT 06/30: 1. Acute pulmonary embolism in the segmental pulmonary artery supplying the superior segment of the right lower lobe. 2. Nonocclusive thrombus in the superior vena cava. 3. Evidence for gastroesophageal reflux. 4. Small fat containing ventral hernia located approximately 2 cm above the umbilicus and just to the right of a midline vertical incisional scar. 5. Status post right hemicolectomy and ileocolonic anastomosis. No bowel obstruction. 6. Thickening of the wall of the urinary bladder, which may be secondary to its partially distended state, bladder wall hypertrophy, or cystitis. Correlation with urinalysis is suggested. 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 with AICD - Mitral and Aortic bioprosthetic valve replacement (2/2 severe MR, Moderate AR) - No evidence of fluid overload - c/w Carvedilol, Spironolactone with hold parameters HTN - c/w Carvedilol, Spironolactone with hold parameters Alcoholism - c/w Thiamine, Folate, Multivitamins - Currently on CIWA protocol Nicotine dependence - c/w nicotine patch - Advised smoking cessation GI prophylaxis - c/w Protonix DVT prophylaxis - c/w Heparin drip Disposition: - Awaiting therapeutic INR VSElizabeth, I+O VS, Elizabeth, I+O Laboratory Tests 07/01/20 05:45 Vital Signs Date Time Temp Pulse Resp B/P (MAP) Pulse Ox O2 Delivery O2 Flow Rate FiO2 07/01/20 06:00 98.4 70 18 135/90 (105) 95 Room Air I&O- Last 24 Hours up to 6 AM 07/01/20 06:00 Intake Total 740 ml Output Total 150 ml Balance 590 ml FRANCO SMITH MD Jul 01, 2020 08:51
--- NOTE | 2020-07-01 09:58 | REP ---
INDICATION: RUQ, evaluate blood flow in abdominal aortic branches. COMPARISON: CT 06/30/2020 TECHNIQUE: Complete abdominal ultrasound performed. Efforts to evaluate the SMA, celiac axis and JULIANNA were unsuccessful due to extensive bowel gas limiting scan windows. FINDINGS: Liver is diffusely hyperechoic in a homogeneous fashion consistent with fatty infiltration. Some focal fat sparing is noted adjacent to the gallbladder wall. There is no biliary dilatation. No mass or adjacent ascites. Gallbladder shows wall thickness 2.5 mm without stone, sludge or pericholecystic fluid. Common duct is 3 mm without a filling defect. Pancreas views are limited due to gas shadowing. Spleen measures 10.5 x 10.2 x 5.8 cm. This gives a splenic index of 621 and indicates mildly enlarged spleen (upper limits normal 480). The right kidney is 10.3 x 5.7 x 6.7 and the left 11.2 x 6.4 x 5 cm either shows stone, cyst, hydronephrosis or mass. The mid and distal aorta maximum diameters of 1.9 and 1.8 cm respectively. Proximally abdominal aorta is incompletely evaluated due to gas shadowing. There is no evidence of free fluid. IMPRESSION: 1. Fatty liver with no acute finding. The gallbladder, common bile duct and kidneys are unremarkable. 2. Pancreas poorly evaluated due to gas shadowing. 3. Abdominal vasculature from the aorta cannot be visualized due to extensive gas shadowing. Four very mild enlargement of the spleen without focal splenic lesion. No ascites. 4. Unable to perform evaluation of abdominal vasculature due to gas shadowing. <Electronically signed by Joshua Rice > 07/01/20 0954
[2020-07-01 11:39] VITALS: BP 142/92
--- NOTE | 2020-07-01 12:41 | REP ---
INDICATION: R/0 CVA. COMPARISON: MRI and CT 07/04/2016, TECHNIQUE: Standard noncontrast imaging with coronal reconstruction. FINDINGS: The noncontrast images show lateral ventricles symmetric in without dilatation or displacement. Basal ganglia are symmetric and unremarkable the stone-white junction differentiation was well maintained. There is no vascular territory infarct, intra or extra-axial hemorrhage, mass or mass effect. I see no atrophy or prominence of the sulci. Stone matter white matter differentiation normal. Brainstem and cerebellum intact. No posterior fossa mass or hemorrhage. Basal cisterns were intact. Bone windows show mastoids and sinuses visible to be clear. There is deviation of the nasal septum towards the right. There is no fracture of the skull base or calvarium. The orbits and contents visible were grossly intact. IMPRESSION: Negative CT brain for acute infarct, intracranial hemorrhage, mass, mass effect or edema. Skull base and calvarium without acute finding. <Electronically signed by Joshua Rice > 07/01/20 1972
[2020-07-01 14:00] VITALS: BP 124/87
[2020-07-01 14:31] LABS: CPK CREATINE PHOSPHOKINASE 115 U/L (39-308); MB/CK RELATIVE INDEX 0.87 (< OR =4); TROPONIN I < 0.02 NG/ML (< 0.10)
[2020-07-01] MEDS: WARFARIN SOD 4MG TAB PO SCH (16:28)
[2020-07-01 18:42] LABS: CK-MB VALUE MASS < 1.0 NG/ML (<3.6); CPK CREATINE PHOSPHOKINASE 109 U/L (39-308); MB/CK RELATIVE INDEX 0.92 (< OR =4); TROPONIN I < 0.02 NG/ML (< 0.10)
--- NOTE | 2020-07-01 19:58 | ECGEPIP ---
[facility] Test Date: 2020-07-01 Pat Name: ANGELINE GAN Department: Room: [place] [address] Gender: Male [place] Culler: : 1975 Requested By: FRANCO SMITH Order Number: [id number] Reading MD: Cesar Diaz Measurements Intervals [place] Rate: 77 P: 68 DE: 208 QRS: 261 QRSD: 95 T: 119 QT: 405 QTc: 460 Interpretive Statements SINUS RHYTHM WITH FREQUENT VENTRICULAR PREMATURE COMPLEXES Low QRS complex voltage in the limb leads LEFT ATRIAL ENLARGEMENT Delayed anterior R wave progression Inferior Q waves of uncertain significance Nonspecific ST-T wave abnormalities Electronically Signed on 07-01-2020 19:57:40 EST by Cesar Diaz
[2020-07-01] MEDS ORDERED: diphenhydrAMINE 25MG CAP PO SCH (21:00)
[2020-07-01 22:00] VITALS: BP 122/85
[2020-07-01] MEDS: RAMELTEON 8 MG TAB (ROZEREM) PO PRN (22:06)
[2020-07-02 00:54] LABS: CK-MB VALUE MASS < 1.0 NG/ML (<3.6); CPK CREATINE PHOSPHOKINASE 90 U/L (39-308); MB/CK RELATIVE INDEX 1.11 (< OR =4); TROPONIN I < 0.02 NG/ML (< 0.10)
[2020-07-02] MEDS: HEPARIN DRIP 25,000 UNITS in IV 1 EA IV SCH (00:55)
[2020-07-02 06:00] VITALS: BP 117/78
[2020-07-02 07:09] LABS: BASO % 0.2 % (0.0-1.0); EOS # 0.2 10^3/uL (0.0-0.5); EOS % 1.9 % (0.0-3.0); HEMOGLOBIN 15.3 g/dl (13.5-17.5); LYMPH # 1.6 10^3/uL (1.5-5.0); LYMPH % 19.5 % (24.0-44.0); MEAN CORPUSCULAR HEMOGLOBIN 32.6 pg (27.0-33.0); MEAN CORPUSCULAR VOLUME 95.9 fl (80.0-96.0); MONO # 1.2 10^3/uL (0.0-0.8); NEUTROPHILS # 5.1 10^3/uL (1.5-8.5); NEUTROPHILS % 62.8 % (36.0-66.0); PLATELET COUNT, AUTOMATED 172 10^3/uL (150-450); RED BLOOD COUNT 4.69 10^6/uL (4.30-6.10); WHITE BLOOD COUNT 8.1 10^3/uL (4.0-10.0)
[2020-07-02 07:20] LABS: INR 1.15
[2020-07-02 07:21] LABS: PARTIAL THROMBOPLASTIN TIME 73.5 SECONDS (24.2-38.5)
[2020-07-02 07:39] LABS: BLOOD UREA NITROGEN 10 MG/DL (7-18); CARBON DIOXIDE LEVEL 25 MEQ/L (21-32); CHLORIDE LEVEL 109 MEQ/L (98-107); CREATININE FOR GFR 1.03 MG/DL (0.70-1.30); GLOMERULAR FILTRATION RATE > 60.0 (>60); GLUCOSE, FASTING 107 MG/DL (70-100); MAGNESIUM LEVEL 1.9 MG/DL (1.8-2.4); POTASSIUM SERUM 3.7 MEQ/L (3.5-5.1); SODIUM LEVEL 140 MEQ/L (136-145)
[2020-07-02] MEDS ORDERED: ELIQ5TAB PO (08:14)
[2020-07-02] MEDS: THIAMINE 100 MG TAB PO SCH (08:19)
[2020-07-02] MEDS: SPIRONOLACTONE 25 MG TAB PO SCH (08:19)
[2020-07-02] MEDS: ENTRESTO 49-51MG TABLET (SACUBITRIL/VALSARTAN) PO SCH (08:19)
[2020-07-02] MEDS: MULTIVITAMINS/MINERALS THERAP 1 TAB PO SCH (08:19)
[2020-07-02] MEDS: PANTOPRAZOLE 40MG TAB (PROTONIX) PO SCH (08:19)
[2020-07-02] MEDS: FOLIC ACID 1 MG TAB PO SCH (08:19)
[2020-07-02 08:22] VITALS: BP 150/89
[2020-07-02] MEDS: CARVedilol 12.5 MG TAB PO SCH (08:22)
[2020-07-02] MEDS: NICOTINE 14 MG/24 HR TRANSDERMAL TD SCH (08:23)
[2020-07-02] MEDS: DOCUSATE SODIUM 100 MG CAP PO SCH (08:23)
--- NOTE | 2020-07-02 08:56 | REP ---
INDICATION: Recent L arm numbness / tingling. COMPARISON: Comparison is made with the previous day's study, July 01, 2020.. TECHNIQUE: Helical scanning is acquired. 5 mm axial images were reformatted. Coronal MPR images were generated. FINDINGS: Bone window settings demonstrate an intact bony calvarium. There is no evidence of skull fracture or incidental bony calvarial lesion. The visualized paranasal sinuses appear clear. No intraorbital abnormality is seen. On soft tissue window setting images; the lateral, third, and fourth ventricles are normal in size and position. Stone-white differentiation pattern is normal above and below the tentorium. There are is no evidence of intracranial hemorrhage. No mass, edema, infarction, or midline shift is seen. No extra-axial fluid collection is appreciated. Vascular calcification is again visible in the distal vertebral artery on the left and in bilateral internal carotid arteries at the skull base. IMPRESSION: Vascular calcification noted. Otherwise negative CT brain. No infarct or hemorrhage seen.. <Electronically signed by Wilfrid Momin > 07/02/20 0884
[2020-07-02] MEDS ORDERED: THIA100TA PO (09:45)
[2020-07-02] MEDS ORDERED: FOLI1TAB11 PO (09:45)
[2020-07-02] MEDS ORDERED: MULTCAP PO (09:45)
[2020-07-02] MEDS ORDERED: PANT40TA29 PO (09:45)
[2020-07-02] MEDS ORDERED: APIXABAN 5 MG TAB (ELIQUIS) PO SCH (11:00)
--- NOTE | 2020-07-02 13:10 | DS.PDOC ---
Discharge Summary General Date of Admission Jun 30, 2020 at 02:35 Date of Discharge 07/02/2020 Discharge Summary PROCEDURES PERFORMED DURING STAY: [None]. 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 Patient had resolution of his symptoms. Upon arrival to emergency room, however, CT scan of his abdomen and pelvis had revealed there is a pulmonary embolism. His right lower lung. Patient reports that he has been on Coumadin as an outpatient but has been noncompliant for last 3 days. He also re ports that he has not checked his INR in the last 2 months. Patient reports that he has lost insurance coverage. He has been admitted to hospital service for further evaluation.. HOSPITAL COURSE: Pulmonary embolism - Patient continues to suffer a well on room air - Denies any chest pain, shortness of breath or palpitations - Patient has been noncompliant with his warfarin; he has been on warfarin for bioprosthetic aortic and mitral valves for 6 months post-procedure - Patient has last seen Dr. Trejo 04/16/2020 - INR subtherapeutic - Duplex US 06/30: No evidence of deep vein thrombosis (both legs examined). - Abdomen / Pelvis CT 06/30: 1. Acute pulmonary embolism in the segmental pulmonary artery supplying the superior segment of the right lower lobe. 2. Nonocclusive thrombus in the superior vena cava. 3. Evidence for gastroesophageal reflux. 4. Small fat containing ventral hernia located approximately 2 cm above the umbilicus and just to the right of a midline vertical incisional scar. 5. Status post right hemicolectomy and ileocolonic anastomosis. No bowel obstruction. 6. Thickening of the wall of the urinary bladder, which may be secondary to its partially distended state, bladder wall hypertrophy, or cystitis. Correlation with urinalysis is suggested. - Patient has had Medicaid establish and will have coverage until July after which third alliance party insurance will commence - Will discontinue heparin drip and Coumadin; will start Eliquis s/p Nausea/vomiting, associate with abdominal pain - possibly 2/2 fat containing abdominal ventral hernia - Patient has not experience any further episodes of nausea and vomiting - Has been tolerating a full diet - Physical with mild tenderness around hernia - Imaging reviewed above - US of abdomen / Doppler flow of abdominal vessels 07/01: 1. Fatty liver with no acute finding. The gallbladder, common bile duct and kidneys are unremarkable. 2. Pancreas poorly evaluated due to gas shadowing. 3. Abdominal vasculature from the aorta cannot be visualized due to extensive gas shadowing. Four very mild enlargement of the spleen without focal splenic lesion. No ascites. 4. Unable to perform evaluation of abdominal vasculature due to gas shadowing. - s/p Zofran and Dicyclomine - Will get outpatient follow-up with primary care provider for possible surgical referral Numbness and Tingling of L arm - Patient had reported a brief episode of numbness and tingling that occurred for about 5 minutes - CT head 07/01: Negative CT brain for acute infarct, intracranial hemorrhage, mass, mass effect or edema. Skull base and calvarium without acute finding. - CT head 07/02: Vascular calcification noted. Otherwise negative CT brain. No infarct or hemorrhage seen.. 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 ALLERGIES: Please see below. PHYSICAL EXAMINATION ON DISCHARGE: Vitals (See below) General: Sitting up in bed, does not appear to be in any acute distress, AAOx3 HEENT: NC, AT CVS: +S1S2 Lungs: Air entry is fair bilaterally without any significant rhonchi, rales or wheezing Abdomen: Soft, non-distended, non-tender, R of midline ventral hernia - mild tenderness Extremities: LE are without any edema, - Calf tenderness LABORATORY DATA: Please see below. ACTIVITY: [As tolerated]. DISCHARGE PLAN: Follow-up with primary care provider and Dr. Trejo within the next 7 days Remain compliant with treatment plan and medications Return to the ER if you experience any problems DISPOSITION: Home, Self-Care. DISCHARGE CONDITION: [Stable]. TIME SPENT ON DISCHARGE: 35 minutes Vital Signs/I&Os Vital Signs Date Time Temp Pulse Resp B/P (MAP) Pulse Ox O2 Delivery O2 Flow Rate FiO2 07/02/20 08:22 50 150/89 07/02/20 06:00 98.2 18 96 Room Air I&O- Last 24 Hours up to 6 AM 07/02/20 06:00 Intake Total 1232 ml Output Total 150 ml Balance 1082 ml Laboratory Data Labs 24H Laboratory Tests 2 07/01/20 17:08: Total Creatine Kinase 109, Creatine Kinase MB < 1.0, Creatine Kinase MB Relative Index 0.92, Troponin I < 0.02 07/01/20 23:56: Total Creatine Kinase 90, Creatine Kinase MB < 1.0, Creatine Kinase MB Relative Index 1.11, Troponin I < 0.02 07/02/20 06:47: Immature Granulocyte % (Auto) 0.6, Neutrophils (%) (Auto) 62.8, Lymphocytes (%) (Auto) 19.5L, Monocytes (%) (Auto) 15.0H, Eosinophils (%) (Auto) 1.9, Basophils (%) (Auto) 0.2, Neutrophils # (Auto) 5.1, Lymphocytes # (Auto) 1.6, Monocytes # (Auto) 1.2H, Eosinophils # (Auto) 0.2, Basophils # (Auto) 0.0, Nucleated Red Blood Cells % (auto) 0.0, Prothrombin Time 15.0H, Prothromb Time International Ratio 1.15, Activated Partial Thromboplast Time 73.5H, Anion Gap 6L, Glomerular Filtration Rate > 60.0, Calcium Level 9.0, Magnesium Level 1.9 CBC/BMP Laboratory Tests 07/02/20 06:47 Microbiology Microbiology 07/01/20 Stool Occult Blood (SAIMA) - Final, Complete 06/30/20 Stool Occult Blood (SAIMA) - Final, Complete Discharge Medications Scheduled Acetaminophen/Diphenhydramine (Acetaminophen Pm Caplet) 1 Each Tablet, 2 TAB PO QHS, (Reported) Apixaban (Eliquis) 5 Mg Tablet, 1 TAB PO ASDIRECTED 2 tab po BID x 7 days 1 tab po BID there after Carvedilol (Carvedilol) 25 Mg Tablet, 25 MG PO BID, (Reported) Docusate Sodium (Docusate Sodium) 100 Mg Capsule, 100 MG PO DAILY, (Reported) Folic Acid (Folic Acid) 1 Mg Tablet, 1 MG PO DAILY Multivitamin (Multivitamins) 1 Each Capsule, 1 CAP PO DAILY Pantoprazole Sodium (Pantoprazole Sodium) 40 Mg Tablet.dr, 40 MG PO DAILY Sacubitril/Valsartan (Entresto 49 mg-51 mg Tablet) 1 Each Tablet, 1 TAB PO BID, (Reported) Spironolactone (Spironolactone) 25 Mg Tablet, 25 MG PO DAILY, (Reported) Thiamine Hcl (Vitamin B-1) 100 Mg Tablet, 100 MG PO DAILY Scheduled PRN Nitroglycerin (Nitrostat) 0.4 Mg Tab.subl, 0.4 MG SL NITRO PRN for CHEST PAIN, (Reported) Allergies Coded Allergies: No Known Drug Allergies (Verified Allergy, Unknown, 08/28/19) FRANCO SMITH MD Jul 02, 2020 13:10
--- NOTE | 2020-07-06 12:11 | ECHO ---
DATE OF PROCEDURE: 07/02/2020 Age: 44 Gender: Male REFERRING PHYSICIAN: Krysten Pemberton MD PATIENT LOCATION: Room 4230. REASON FOR STUDY: Congestive heart failure. 2D MEASUREMENTS: IVS 1.3 cm LV 5.3 cm LVPW 1.3 cm LA 4.6 cm Aorta 3.6 cm DOPPLER MEASUREMENT Peak velocity across the aortic valve 1.8 m/s Peak velocity across the LVOT 0.57 m/s Peak gradient across the aortic valve 13.0 mmHg Mean gradient across the aortic valve 8 mmHg Mitral E 0.90 Mitral A 1.3 with a ratio of 0.7 2D COMMENTS: 1. Normal left ventricular size with mildly increased left ventricular wall thickness, but a depressed global left ventricular systolic function. There was [id number] global hypokinesis with an estimated left ventricular systolic ejection fraction of 30%. 2. Mildly dilated left atrium. Normal right atrium and right ventricle. 3. Normal aortic root. 4. No pericardial effusion seen. 5. Possible bioprosthetic valve noted in the aortic valve position. Bioprosthetic valve also noted in the mitral valve position, leaflet excursion not well visualized. Normal tricuspid valve and pulmonic valve. The proximal pulmonary artery branches were not well visualized. 6. The inferior vena cava was not visualized. Doppler with no significant valvular abnormalities detected. BUBBLE STUDY: Bubble study done with agitated normal saline did not reveal any passage of bubbles from the right heart chambers to the left. IMPRESSION: 1. Moderately severe global left ventricular systolic dysfunction with global hypokinesis, but preserved left ventricular wall thickness. 2. Mildly enlarged left atrium. A bioprosthetic valve was noted in the mitral valve position and seems to be working well. 3. Possible bioprosthetic aortic valve with normal function. 4. Not mentioned above, pacemaker/AICD wire artifacts noted in the right heart chambers. 5. Bubble study was negative for intracardiac shunt. MTDD
[2020-07-09] MEDS ORDERED: APIXABAN 5 MG TAB (ELIQUIS) PO SCH (09:00)
== END 2020-07-02 11:33 | disposition home or self-care (01) | DRG 134 ==
LOC: M ED 20:58 → M ED INP 06-30 02:35 → ENRESERV 06-30 03:00 → M MSPAV 06-30 03:50
PROVIDERS: ADMIT Internal Medicine; ATTEND Internal Medicine
DX: I26.99 Other pulmonary embolism without acute cor pulmonale (principal); I11.0 Hypertensive heart disease with heart failure; I50.22 Chronic systolic (congestive) heart failure; I42.6 Alcoholic cardiomyopathy; Z90.49 Acquired absence of other specified parts of digestive tract; Z95.810 Presence of automatic (implantable) cardiac defibrillator; F17.210 Nicotine dependence, cigarettes, uncomplicated; R11.2 Nausea with vomiting, unspecified; F10.20 Alcohol dependence, uncomplicated; Z79.01 Long term (current) use of anticoagulants; Z79.899 Other long term (current) drug therapy; Z95.3 Presence of xenogenic heart valve; Z91.14 Patient's other noncompliance with medication regimen; K43.9 Ventral hernia without obstruction or gangrene; R20.0 Anesthesia of skin

== ENCOUNTER → 2020-07-10 | Outpatient (REF) | payer MEDICAID ==
[~2020-07-10] MED LIST changes: +ACET25TA12 PO; +CARV25TA; +CARV25TA PO; +DOCU-129; +DOCU100C16 PO; +ELIQ5TAB PO; +ENTR1TAB7; +ENTR1TAB7 PO; +FOLI1TAB11 PO; +MULTCAP PO; +NITR4TASL SL; +PANT40TA29 PO; +SPIR-10; +SPIR-10 PO; +THIA100TA PO; +WARF-20; +WARF-20 PO
== END ==
LOC: M SFHCPLAZ 11:39
PROVIDERS: ATTEND Family Medicine
DX: N32.89 Other specified disorders of bladder (principal)

== ENCOUNTER 2021-02-23 23:35 | Inpatient (IN) | payer OTHER, MEDICAID ==
[~2021-02-23] VITALS: Ht 167.6 cm; Wt 86.6 kg
[~2021-02-23 23:35] MED LIST changes: -DOCU-129; +DOCU-153
[2021-02-24 01:50] LABS: BASO % 0.3 % (0.0-1.0); HEMATOCRIT 42.6 % (42.0-52.0); HEMOGLOBIN 14.5 g/dl (13.5-17.5); LYMPH # 0.7 10^3/uL (1.5-5.0); LYMPH % 5.8 % (24.0-44.0); MEAN CORPUSCULAR HEMOGLOBIN 34.3 pg (27.0-33.0); MEAN CORPUSCULAR VOLUME 100.7 fl (80.0-96.0); MONO # 1.3 10^3/uL (0.0-0.8); MONO % 11.2 % (2.0-8.0); NEUTROPHILS # 9.7 10^3/uL (1.5-8.5); NEUTROPHILS % 82.4 % (36.0-66.0); PLATELET COUNT, AUTOMATED 188 10^3/uL (150-450); RED BLOOD COUNT 4.23 10^6/uL (4.30-6.10); WHITE BLOOD COUNT 11.8 10^3/uL (4.0-10.0)
[2021-02-24 02:01] LABS: INR 1.12; PARTIAL THROMBOPLASTIN TIME 28.5 SECONDS (24.2-38.5); PROTHROMBIN TIME 14.6 SECONDS (12.5-14.3)
[2021-02-24 02:22] LABS: ALBUMIN 3.4 GM/DL (3.2-5.2); ALT/SGPT 82 U/L (12-78); BILIRUBIN,DIRECT 0.3 MG/DL (0.0-0.2); BILIRUBIN,TOTAL 2.2 MG/DL (0.2-1.0); BLOOD UREA NITROGEN 13 MG/DL (7-18); CALCIUM LEVEL 9.4 MG/DL (8.5-10.1); CARBON DIOXIDE LEVEL 25 MEQ/L (21-32); CHLORIDE LEVEL 107 MEQ/L (98-107); CREATININE FOR GFR 1.03 MG/DL (0.70-1.30); GLOMERULAR FILTRATION RATE > 60.0 (>60); GLUCOSE, FASTING 117 MG/DL (70-100); LIPASE 38 U/L (73-393); POTASSIUM SERUM 4.3 MEQ/L (3.5-5.1); SODIUM LEVEL 140 MEQ/L (136-145); TOTAL PROTEIN 7.2 GM/DL (6.4-8.2)
[2021-02-24] MEDS ORDERED: LORazepam 2 MG/ML VIAL IV STA (03:58)
[2021-02-24] MEDS ORDERED: NS 1,000 ML IV ONE ×3 (04:00→06:10)
[2021-02-24] MEDS ORDERED: PROMETHAZINE INJ 25 MG/ML VIAL (J2550) IV ONE (04:00)
[2021-02-24] MEDS ORDERED: ISOVUE-370 76% 100ML VIAL As Ordered ONE (04:05)
[2021-02-24 04:26] LABS: CK-MB VALUE MASS < 1.0 NG/ML (<3.6); CPK CREATINE PHOSPHOKINASE 194 U/L (39-308); MB/CK RELATIVE INDEX 0.52 (< OR =4); TROPONIN I 0.04 NG/ML (< 0.10)
[2021-02-24] MEDS ORDERED: MORPHINE 2 MG/ML 1ML VIAL (J2270) IV PRN (05:50)
[2021-02-24] MEDS ORDERED: PANT40TA29 PO (07:50)
[2021-02-24] MEDS ORDERED: ELIQ5TAB PO (07:50)
[2021-02-24] MEDS ORDERED: FOLI1TAB11 PO (07:50)
[2021-02-24] MEDS ORDERED: ENTR1TAB4 PO (07:50)
[2021-02-24] MEDS ORDERED: VITMTA PO (07:50)
[2021-02-24] MEDS ORDERED: SUCR1TA PO (07:50)
[2021-02-24] MEDS ORDERED: THIA100TA PO (07:50)
[2021-02-24] MEDS ORDERED: CARVedilol 12.5 MG TAB PO ONE ×2 (08:05→14:45)
--- NOTE | 2021-02-24 08:22 | REP ---
INDICATION: generalized abd pain. Repeat dictation. Preliminary report is provided at the time of the exam by logan WHITEHEAD. COMPARISON: Comparison CT study June 30, 2020.. TECHNIQUE: Helical scanning was acquired and 4 mm axial images are re-formatted. Coronal and sagittal MPR images were generated and reviewed. The contrast enhancement dose is 100 mL of intravenous Isovue 370. FINDINGS: Preliminary digital library clerk talking books radiograph shows clips in right upper quadrant. There is a subtle infiltrate in the right lower lobe of the lung on axial CT images. Interstitial markings are slightly prominent in the lung bases bilaterally. No pleural effusion is seen. There is a pacemaker in the enlarged heart. Aortic and mitral valve replacements. There is moderate diffuse fatty infiltration of the liver. No focal liver lesion is seen. No abnormality is noted within the gallbladder. The pancreas is unremarkable. Normal adrenals are seen. Kidneys enhance symmetrically and are morphologically intact. Patient is status post right hemicolectomy. The appendix is not seen. No retroperitoneal mass or abdominal adenopathy is seen. No pelvic mass or adenopathy is observed. Prostate, seminal vesicles, and urinary bladder are unremarkable. There is a ventral hernia in the midline of the supraumbilical abdominal wall trans Figueredo omental fat. No other abdominal wall defect is seen. No acute bony abnormality is observed. IMPRESSION: Status post right hemicolectomy. Moderate diffuse fatty infiltration of the liver. Epigastric hernia trans Figueredo abdominal fat. No acute abdominal or pelvic abnormality seen. <Electronically signed by Wilfrid Momin > 02/24/21 [id number]
[2021-02-24 08:23] LABS: RSV AMPLIFICATION NEGATIVE (NEGATIVE)
[2021-02-24 08:23] LABS: ETHYL ALCOHOL (ETHANOL) < 0.003 % (0.000-0.010)
[2021-02-24] MEDS ORDERED: CARVedilol 12.5 MG TAB PO SCH (09:00)
[2021-02-24] MEDS: ENTRESTO 97-103MG TABLET (SACUBITRIL/VALSARTAN) PO SCH ×2 (09:00→21:01)
[2021-02-24] MEDS ORDERED: ONDANSETRON 4MG/2ML VIAL IV PRN (09:15)
[2021-02-24 09:31] LABS: TROPONIN I 0.07 NG/ML (< 0.10)
[2021-02-24] MEDS ORDERED: NITROGLYCERIN 0.4 MG SUBL TABLET SL PRN (09:35)
[2021-02-24] MEDS: MULTIVITAMINS/MINERALS THERAP 1 TAB PO SCH (09:41)
[2021-02-24] MEDS: THIAMINE 100 MG TAB PO SCH (09:41)
[2021-02-24] MEDS: FOLIC ACID 1 MG TAB PO SCH (09:41)
--- NOTE | 2021-02-24 11:24 | ECGEPIP ---
[facility] - ED Test Date: 2021-02-24 Pat Name: ANGELINE GAN Department: Room: - Gender: Male Faith Doctor: KELLY : 1975 Requested By: EDWARDO Dowell Order Number: [id number] Reading MD: Allie Moraes Measurements Intervals [place] Rate: 143 P: 77 [place]: 150 QRS: 238 QRSD: 94 T: 82 QT: 334 QTc: 515 Interpretive Statements Sinus tachycardia with fusion complexes MARGRET low voltage limb Possible Left atrial enlargement Right superior axis deviation Pulmonary disease pattern Septal infarct , age undetermined NSTTW abnormalities prolonged qtc increased rate 07/01/20 Electronically Signed on 02-24-2021 11:24:08 EDT by Allie Moraes
[2021-02-24] MEDS: DOCUSATE SODIUM 100MG CAPSULE PO SCH (12:11)
[2021-02-24] MEDS: SUCRALFATE 1 GM TAB PO SCH ×2 (12:11→21:01)
[2021-02-24] MEDS: APIXABAN 5 MG TAB (ELIQUIS) PO SCH ×2 (12:11→20:59)
[2021-02-24] MEDS: PANTOPRAZOLE 40MG TAB (PROTONIX) PO SCH (12:11)
--- NOTE | 2021-02-24 13:04 | HPEPDOC ---
General Date of Admission Feb 24, 2021 at 08:20 Date of Service: Feb 24, 2021 Chief Complaint The patient is a 45-year-old male admitted with a reason for visit of Nausea And Vomiting, Sinus Tachycardia. History of Present Illness 45 y/o M with h/o systolic CHF with EF 30%(s/p AICD), active smoker, alcohol abuse, marijuana abuse, h/o sinus tachycardia, medication non compliance, h/o PE who was on comfort measure came to ER c/o nausea, multiple episodes of vomiting for past 2 days associated with abdominal pain(at the site of abdominal hernia) while coughing, no specific aggravating or relieving factor. Pt does have chronic cough. Pt was not vaccinated for COVID 19. In ER pt was found with vitals of BP 167/116, HR 144, RR 16, Temp 99.4, SpO2- 92% on RA; CT abdomen/pelvis- no acute intraabdominal pathology but showed right lung base ? viral pneumonitis. In ER pt was given NS bolus 3 liters, iv cardizem 10 mg, PO Carvedilol 25 mg once daily. Pt revoked his comfort care measures but completed a new MOLST form for DNR/DNI. Hospitalist service was consulted to admit the patient for further management. Pt was seen and examined at bedside in ER. Pt c/o mild nausea and dry cough. Home Medications Scheduled Acetaminophen/Diphenhydramine (Acetaminophen Pm Caplet) 1 Each Tablet, 2 TAB PO QHS, (Reported) Apixaban (Eliquis) 5 Mg Tablet, 5 MG PO BID, (Reported) Carvedilol (Carvedilol) 25 Mg Tablet, 25 MG PO BID, (Reported) Docusate Sodium (Docusate Sodium) 100 Mg Capsule, 100 MG PO DAILY, (Reported) Folic Acid (Folic Acid) 1 Mg Tablet, 1 MG PO DAILY, (Reported) Multivitamins (Thera M Plus Tablet) 1 Each Tablet, 1 TAB PO DAILY, (Reported) Pantoprazole Sodium (Pantoprazole Sodium) 40 Mg Tablet.dr, 40 MG PO DAILY, (Reported) Sacubitril/Valsartan (Entresto 97 mg-103 mg Tablet) 1 Each Tablet, 1 TAB PO BID, (Reported) Spironolactone (Spironolactone) 25 Mg Tablet, 25 MG PO DAILY, (Reported) Sucralfate (Sucralfate) 1 Gm Tablet, 1 GRAM PO BID, (Reported) Thiamine Hcl (Vitamin B-1) 100 Mg Tablet, 100 MG PO DAILY, (Reported) Scheduled PRN Nitroglycerin (Nitrostat) 0.4 Mg Tab.subl, 0.4 MG SL NITRO PRN for CHEST PAIN, (Reported) Allergies Coded Allergies: No Known Drug Allergies (Verified Allergy, Unknown, 08/28/19) Past Medical History Medical History sinus tachycardia, PE, marijuana abuse, alcohol abuse, systolic CHF Surgical History s/p AICD Family History Father - HTN Social History * Smoker: current smoker Alcohol: heavy Drugs: marijuana Recent Travel/Sick Contacts: Denies: Recent sick contacts A-FIB/CHADSVASC A-FIB History Current/History of A-Fib/PAF?: No Current PO Anticoag Therapy: Yes Review of Systems Constitutional: Denies: Chills Eyes: Reports: Pain ENT: Denies: Head Aches Skin: Denies: Rash Pulmonary: Reports: Cough Cardiovascular: Denies: Chest Pain Gastrointestinal: Reports: Nausea Genitourinary: Denies: Dysuria Hematologic: Denies: Bleeding Excessively Endocrine: Denies: Polydipsia Musculoskeletal: Denies: Back Pain Neurological: Denies: Weakness Psych: Reports: Mood Normal Physical Examination General Exam: Positive: Alert, Cooperative, No Acute Distress Eye Exam: Positive: Conjunctiva & lids normal ENT Exam: Positive: Atraumatic, Mucous membr. moist/pink Neck Exam: Positive: Supple Chest Exam: Positive: Clear to auscultation; Negative: Rales, Rhonchi Heart Exam: Positive: Tachycardic Abdomen Exam: Positive: Normal bowel sounds Extremity Exam: Negative: Edema Skin Exam: Negative: Rash Neuro Exam: Positive: Normal Gait, Normal Speech, Strength at 5/5 X4 ext Psych Exam: Positive: Mental status NL Vital Signs Vital Signs Date Time Temp Pulse Resp B/P (MAP) Pulse Ox O2 Delivery O2 Flow Rate FiO2 02/24/21 12:30 121 148/101 (117) 86 02/24/21 08:20 Room Air 02/24/21 07:15 2.0 02/24/21 06:36 99.4 02/24/21 06:15 22 Laboratory Data Labs 24H Laboratory Tests 2 02/24/21 01:31: Prothrombin Time 14.6H, Prothromb Time International Ratio 1.12, Activated Partial Thromboplast Time 28.5, Anion Gap 8, Glomerular Filtration Rate > 60.0, Calcium Level 9.4, Total Bilirubin 2.2H, Direct Bilirubin 0.3H, Aspartate Amino Transf (AST/SGOT) 118H, Alanine Aminotransferase (ALT/SGPT) 82H, Alkaline Phosphatase 106, Total Creatine Kinase 194, Creatine Kinase MB < 1.0, Creatine Kinase MB Relative Index 0.52, Troponin I 0.04, Total Protein 7.2, Albumin 3.4, Albumin/Globulin Ratio 0.9, Lipase 38L, Ethyl Alcohol Level < 0.003 02/24/21 01:32: Immature Granulocyte % (Auto) 0.3, Neutrophils (%) (Auto) 82.4H, Lymphocytes (%) (Auto) 5.8L, Monocytes (%) (Auto) 11.2H, Eosinophils (%) (Auto) 0.0, Basophils (%) (Auto) 0.3, Neutrophils # (Auto) 9.7H, Lymphocytes # (Auto) 0.7L, Monocytes # (Auto) 1.3H, Eosinophils # (Auto) 0.0, Basophils # (Auto) 0.0, Nucleated Red Blood Cells % (auto) 0.0 02/24/21 07:18: Coronavirus (COVID-19)(PCR) NEGATIVE, Influenza Type A (RT-PCR) NEGATIVE, Influenza Type B (RT-PCR) NEGATIVE, Respiratory Syncytial Virus (PCR) NEGATIVE 02/24/21 08:46: Troponin I 0.07# CBC/BMP Laboratory Tests 02/24/21 01:31 02/24/21 01:32 Microbiology Microbiology 02/24/21 Blood Culture, Received Pending Assessment/Plan 45 y/o M c/o nausea, multiple episodes of vomiting associated with abdominal pain while coughing, no specific aggravating or relieving factor. Labs and imaging studies reviewed Impression- nausea, vomiting, sinus tachycardia. Plan 1. Nausea/vomiting could be secondary to cyclic vomiting syndrome due to marijuana abuse Pt is not willing to quit marijuana. will f/u urine toxicology Pt was counselled about marijuana abuse, alcohol abuse and smoking. ivf zofran prn ivf NS 75 ml/hr 2. Chronic cough could be secondary to ? COPD duonebs prn not on home meds o/p pulmonary referral as per PMD discretion 3. h/o sinus tachycardia resumed and increased home medication Carvedilol 25 to 37.t mg BID telemetry medication compliance was reinforced. 4. Suspected viral pneumonitis supportive care will continue to monitor patient clinically 5. h/o alcohol abuse thiamine, folic acid multivitamin will continue to monitor for alcohol withdrawal. 6. Obesity supportive care 7. h/o systolic CHF with EF 30%(s/p AICD) most probably secondary to alcoholic cardiomyopathy will continue home meds 8. h/o PE home medication Eliquis 9. frequent bigeminy on telemetry Magnesium was low- will replete magnesium telemetry 10. Elevated LFTs most probably related to alcohol abuse will f/u repeat labs h/o mitral bioprosthetic valve replacement for severe MR h/o aortic bioprosthetic valve replacement for AR s/p left atrial appendage clips left common iliac artery borderline aneurysm h/o CVA h/o gout h/o cardiac cath h/o bowel ischemia and pseudo obstruction s/p right hemicolectomy h/o VTach h/o ventral hernia Plan / VTE VTE Prophylaxis Ordered?: Yes SHERRI LIPSCOMB MD Feb 24, 2021 13:04
--- NOTE | 2021-02-24 13:09 | REP ---
INDICATION: epigastric pain, pneumonia/pneumonitis incomp see on ct. Repeat dictation. Preliminary report is provided at the time of the exam by logan MONTALVO. COMPARISON: Comparison chest x-ray June 29, 2020.. TECHNIQUE: Upright portable AP radiograph. FINDINGS: A unipolar pacemaker is again seen. An aortic valve replacement and left atrial appendage clip is noted. Median sternotomy wires and monitoring electrodes are visible. Cardiomegaly is observed. There is vascular congestion and mild interstitial edema pattern. There is increased density in the right base consistent with pneumonitis. IMPRESSION: Vascular congestion interstitial edema CHF pattern. Increased density in the right base consistent with pneumonitis. <Electronically signed by Wilfrid Momin > 02/24/21 [id number]
[2021-02-24 13:21] LABS: THYROID STIMULATING HORMONE 2.31 uIU/ML (0.358-3.740)
[2021-02-24] MEDS: NS 1,000 ML IV SCH (13:33)
[2021-02-24] MEDS ORDERED: LORazepam 2 MG TAB PO PRN (14:05)
[2021-02-24 14:20] VITALS: BP 134/92
[2021-02-24 14:30] VITALS: BP 134/92
[2021-02-24] MEDS ORDERED: IPRATROPIUM 0.5MG/ALBUTEROL 2.5MG INH SOL UD 3ML (DUONEB) NEB PRN (14:35)
[2021-02-24] MEDS: SPIRONOLACTONE 25 MG TAB PO SCH (14:35)
[2021-02-24 14:53] LABS: MAGNESIUM LEVEL 1.5 MG/DL (1.8-2.4)
[2021-02-24] MEDS ORDERED: MAGNESIUM SULFATE IN WATER 2 GM in IV 1 EA IV ONE ×2 (15:40)
[2021-02-24 16:12] VITALS: BP 128/98
[2021-02-24] MEDS: MAG SULF 1GM/100ML (MAG RUN) 1 GM in IV 1 EA IV SCH ×2 (16:15→17:26)
[2021-02-24 20:00] VITALS: BP 128/81
[2021-02-24] MEDS: CARVedilol 12.5 MG TAB PO SCH (21:01)
[2021-02-24 22:00] VITALS: BP 126/84
[2021-02-25] VITALS (8 sets, daily range): BP systolic 109–134; BP diastolic 67–85
[2021-02-25] MEDS: NS 1,000 ML IV SCH (04:00)
[2021-02-25 05:16] LABS: HEMATOCRIT 38.6 % (42.0-52.0); HEMOGLOBIN 13.1 g/dl (13.5-17.5); MEAN CORPUSCULAR HEMOGLOBIN 34.7 pg (27.0-33.0); MEAN CORPUSCULAR HGB CONC 33.9 g/dl (32.0-36.5); MEAN CORPUSCULAR VOLUME 102.4 fl (80.0-96.0); PLATELET COUNT, AUTOMATED 142 10^3/uL (150-450); RED BLOOD COUNT 3.77 10^6/uL (4.30-6.10); WHITE BLOOD COUNT 9.7 10^3/uL (4.0-10.0)
[2021-02-25 05:47] LABS: BLOOD UREA NITROGEN 18 MG/DL (7-18); CREATININE FOR GFR 0.87 MG/DL (0.70-1.30); GLUCOSE, FASTING 142 MG/DL (70-100)
[2021-02-25 05:48] LABS: ALBUMIN 2.9 GM/DL (3.2-5.2); ALT/SGPT 75 U/L (12-78); BILIRUBIN,TOTAL 2.7 MG/DL (0.2-1.0); CALCIUM LEVEL 8.2 MG/DL (8.5-10.1); CARBON DIOXIDE LEVEL 24 MEQ/L (21-32); CHLORIDE LEVEL 110 MEQ/L (98-107); GLOMERULAR FILTRATION RATE > 60.0 (>60); POTASSIUM SERUM 3.1 MEQ/L (3.5-5.1); SODIUM LEVEL 142 MEQ/L (136-145); TOTAL PROTEIN 6.1 GM/DL (6.4-8.2)
[2021-02-25] MEDS ORDERED: POTASSIUM CHLORIDE 10 MEQ SR TABLET PO ONE (08:00)
[2021-02-25] MEDS: SUCRALFATE 1 GM TAB PO SCH ×2 (08:29→20:03)
[2021-02-25] MEDS: PANTOPRAZOLE 40MG TAB (PROTONIX) PO SCH (08:29)
[2021-02-25] MEDS: APIXABAN 5 MG TAB (ELIQUIS) PO SCH ×2 (08:29→20:03)
[2021-02-25] MEDS: MULTIVITAMINS/MINERALS THERAP 1 TAB PO SCH (08:29)
[2021-02-25] MEDS: DOCUSATE SODIUM 100MG CAPSULE PO SCH (08:29)
[2021-02-25] MEDS: THIAMINE 100 MG TAB PO SCH (08:29)
[2021-02-25] MEDS: FOLIC ACID 1 MG TAB PO SCH (08:29)
[2021-02-25] MEDS: SPIRONOLACTONE 25 MG TAB PO SCH (08:29)
[2021-02-25] MEDS: ENTRESTO 97-103MG TABLET (SACUBITRIL/VALSARTAN) PO SCH (08:31)
[2021-02-25] MEDS: CARVedilol 12.5 MG TAB PO SCH ×3 (08:31→21:00)
[2021-02-25] MEDS ORDERED: FUROSEMIDE 100MG/10ML VIAL (J1940) IV ONE (10:00)
--- NOTE | 2021-02-25 16:07 | IPNPDOC ---
Subjective Date Seen The patient was seen on 02/25/21. Subjective Chief Complaint/HPI Complains of vomiting twice a day , once in the morning after bout of coughing and another at right after dinner. Also has chronic diarrhea since his hemicolectomy last year. No abdominal pain. Reports bothersome coughing worse over the past 2 weeks. Objective Physical Examination General Exam: Positive: Alert, Cooperative, No Acute Distress Eye Exam: Positive: PERRLA, Conjunctiva & lids normal ENT Exam: Positive: Atraumatic, Mucous membr. moist/pink Neck Exam: Positive: Supple Chest Exam: Positive: Clear to auscultation; Negative: Rales, Rhonchi Heart Exam: Positive: Rate Normal, Irregular Rhythm, Normal S1, Normal S2; Negative: Murmurs, Rubs Telemetry: Positive: Other Telemetry: (bigemini) Abdomen Exam: Positive: Normal bowel sounds, Soft; Negative: Tenderness, Hepatospenomegaly Extremity Exam: Positive: Tenderness, Swelling; Negative: Clubbing, Cyanosis, Edema Skin Exam: Negative: Rash Neuro Exam: Positive: Normal Gait, Normal Speech, Strength at 5/5 X4 ext Psych Exam: Positive: Mental status NL, Memory Intact, Oriented x 3 Assessment /Plan Assessment 45 y/o M with h/o systolic CHF with EF 30%(s/p AICD 12/31/2019), alcoholic cardiomyopathy, h/o V tach, Severe mitral regurgitation with moderate aortic regurgitation s/p bioprosthetic mitral and aortic valve replacements on 08/2019, Status post right hemicolectomy and ileocolonic anastomosis secondary to colonic ischemia and pseudoobstruction in 08/2019, s/p left atrial appendage clips, h/o CVA , HTN, gout, nonobstructive CAD, left common iliac artery aneurysm, h/o pulmonary embolism in the segmental pulmonary artery supplying the superior segment of the right lower lobe in 06/2020, 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 He also reports that he has very poor appetite and eats one main meal that is dinner and snacks all day. He also reported vomiting after dinner every day. CXR shows interstitial edema with more infiltrates at the right base. Patient is likely having CHF exacerbation. Bacteremia Blood culture gram positive cocci in clusters and chains. will need to rule out Infective endocarditis will send more blood cultures, start on ceftriaxone and vanco Echo ordered. Nausea/vomiting could be secondary to cyclic vomiting syndrome due to marijuana abuse or gastroparesis. Pt is not willing to quit marijuana. Pt was counselled about marijuana abuse, alcohol abuse and smoking. ivf zofran prn Systolic CHF with EF 30%(s/p AICD) with exacerbation secondary to alcoholic cardiomyopathy will hold entresto to allow for diuresis. continue spironolactone and start IV lasix. Chronic cough probably due to chronic heart failure exacerbation lasix. Sinus tachycardia continue coreg. h/o alcohol abuse thiamine, folic acid multivitamin will continue to monitor for alcohol withdrawal. Obesity supportive care H/O PE and subclavian vein thrombosis. home medication Eliquis Hypomagnesemia replaced. Bigeminis in Telemetry asymptomatic electrolytes replaced. Elevated LFTs due to chf exacerbation. GERD PPI, sucralfate h/o mitral bioprosthetic valve replacement for severe MR h/o aortic bioprosthetic valve replacement for AR s/p left atrial appendage clips left common iliac artery borderline aneurysm h/o CVA h/o gout h/o bowel ischemia and pseudo obstruction s/p right hemicolectomy h/o VTach h/o ventral hernia Plan/VTE VTE Prophylaxis Ordered?: Yes VS, I&O, 24H, Fishbone Vital Signs/I&O Vital Signs Date Time Temp Pulse Resp B/P (MAP) Pulse Ox O2 Delivery O2 Flow Rate FiO2 02/25/21 12:19 98.1 97 20 109/67 (81) 96 Nasal Cannula 1.0 I&O- Last 24 Hours up to 6 AM 02/25/21 06:00 Intake Total 3860 ml Balance 3860 ml Laboratory Data 24H LABS Laboratory Tests 2 02/25/21 05:01: Nucleated Red Blood Cells % (auto) 0.0, Anion Gap 8, Glomerular Filtration Rate > 60.0, Calcium Level 8.2L, Magnesium Level 2.0, Total Bilirubin 2.7H, Aspartate Amino Transf (AST/SGOT) 76H, Alanine Aminotransferase (ALT/SGPT) 75, Alkaline Phosphatase 73, Total Protein 6.1L, Albumin 2.9L, Albumin/Globulin Ratio 0.9 02/25/21 05:10: Urine Color JOHNSON, Urine Appearance CLEAR, Urine pH 5.0, Urine Specific Micro 1.038, Urine Protein 2+H, Urine Glucose (UA) 1+H, Urine Ketones 1+H, Urine Blood NEGATIVE, Urine Nitrite NEGATIVE, Urine Bilirubin 1+H, Urine Urobilinogen 4.0H, Urine Leukocyte Esterase NEGATIVE, Urine WBC (Auto) 1, Urine RBC (Auto) 1, Urine Hyaline Casts (Auto) 0, Urine Bacteria (Auto) NEGATIVE, Urine Squamous Epithelial Cells 1, Urine Mucus (Auto) SMALL, Urine Sperm (Auto) CBC/BMP Laboratory Tests 02/25/21 05:01 Microbiology Microbiology 02/24/21 Blood Culture - Preliminary, Resulted No growth after 24 hours . All specim... SONI LEVINE MD Feb 25, 2021 16:07
[2021-02-25] MEDS: FUROSEMIDE 40MG/4ML VIAL (J1940) IV SCH (17:48)
[2021-02-25] MEDS: cefTRIAXone SOD 2 GM in D5W MINI-BAG PLUS 50 ML IV SCH (17:48)
[2021-02-25] MEDS ORDERED: VANCOMYCIN HCL 1,000 MG, VIAL MATE ADAPTER 1 EACH in NS 250 ML IV ONE ×2 (18:00→19:00)
[2021-02-25] MEDS: RAMELTEON 8 MG TAB (ROZEREM) PO PRN (23:54)
[2021-02-26] VITALS (8 sets, daily range): BP systolic 110–132; BP diastolic 76–98
[2021-02-26] MEDS: VANCOMYCIN HCL 1,000 MG, VIAL MATE ADAPTER 1 EACH in NS 250 ML IV SCH ×3 (02:01→18:02)
[2021-02-26 05:32] LABS: BASO % 0.2 % (0.0-1.0); EOS % 0.1 % (0.0-3.0); HEMATOCRIT 38.8 % (42.0-52.0); HEMOGLOBIN 12.9 g/dl (13.5-17.5); LYMPH # 1.1 10^3/uL (1.5-5.0); LYMPH % 10.9 % (24.0-44.0); MEAN CORPUSCULAR HEMOGLOBIN 33.9 pg (27.0-33.0); MEAN CORPUSCULAR HGB CONC 33.2 g/dl (32.0-36.5); MEAN CORPUSCULAR VOLUME 101.8 fl (80.0-96.0); MONO % 10.4 % (2.0-8.0); NEUTROPHILS # 7.5 10^3/uL (1.5-8.5); NEUTROPHILS % 77.7 % (36.0-66.0); PLATELET COUNT, AUTOMATED 161 10^3/uL (150-450); RED BLOOD COUNT 3.81 10^6/uL (4.30-6.10); WHITE BLOOD COUNT 9.6 10^3/uL (4.0-10.0)
[2021-02-26 05:54] LABS: BLOOD UREA NITROGEN 20 MG/DL (7-18); CALCIUM LEVEL 8.1 MG/DL (8.5-10.1); CARBON DIOXIDE LEVEL 25 MEQ/L (21-32); CHLORIDE LEVEL 108 MEQ/L (98-107); CREATININE FOR GFR 0.88 MG/DL (0.70-1.30); GLOMERULAR FILTRATION RATE > 60.0 (>60); GLUCOSE, FASTING 115 MG/DL (70-100); POTASSIUM SERUM 2.9 MEQ/L (3.5-5.1); SODIUM LEVEL 142 MEQ/L (136-145)
[2021-02-26] MEDS: POTASSIUM CHLORIDE 10 MEQ SR TABLET PO SCH ×3 (06:34→10:18)
[2021-02-26] MEDS: FUROSEMIDE 40MG/4ML VIAL (J1940) IV SCH ×2 (08:20→16:53)
[2021-02-26] MEDS: SUCRALFATE 1 GM TAB PO SCH ×2 (08:20→20:32)
[2021-02-26] MEDS: DOCUSATE SODIUM 100MG CAPSULE PO SCH (08:21)
[2021-02-26] MEDS: MULTIVITAMINS/MINERALS THERAP 1 TAB PO SCH (08:21)
[2021-02-26] MEDS: THIAMINE 100 MG TAB PO SCH (08:22)
[2021-02-26] MEDS: PANTOPRAZOLE 40MG TAB (PROTONIX) PO SCH (08:22)
[2021-02-26] MEDS: FOLIC ACID 1 MG TAB PO SCH (08:22)
[2021-02-26] MEDS: APIXABAN 5 MG TAB (ELIQUIS) PO SCH ×2 (08:22→20:32)
[2021-02-26] MEDS: CARVedilol 12.5 MG TAB PO SCH ×2 (08:25→20:34)
[2021-02-26] MEDS: SPIRONOLACTONE 25 MG TAB PO SCH (10:18)
--- NOTE | 2021-02-26 12:50 | IPNPDOC ---
Subjective Date Seen The patient was seen on 02/26/21. Subjective Chief Complaint/HPI Poor appetite, no fever, reported vomited once yesterday. No SOB, still with intermittent cough. Objective Physical Examination General Exam: Positive: Alert, Cooperative, No Acute Distress Eye Exam: Positive: PERRLA, Conjunctiva & lids normal ENT Exam: Positive: Atraumatic, Mucous membr. moist/pink Neck Exam: Positive: Supple Chest Exam: Positive: Clear to auscultation; Negative: Rales, Rhonchi Heart Exam: Positive: Rate Normal, Irregular Rhythm, Normal S1, Normal S2, Murmurs; Negative: Rubs Telemetry: Positive: Other Telemetry: (bigemini) Abdomen Exam: Positive: Normal bowel sounds, Soft; Negative: Tenderness, Hepatospenomegaly Extremity Exam: Positive: Tenderness, Swelling; Negative: Clubbing, Cyanosis, Edema Skin Exam: Negative: Rash Neuro Exam: Positive: Normal Gait, Normal Speech, Strength at 5/5 X4 ext Psych Exam: Positive: Mental status NL, Memory Intact, Oriented x 3 Assessment /Plan Assessment 45 y/o M with h/o systolic CHF with EF 30%(s/p AICD 12/31/2019), alcoholic cardiomyopathy, h/o V tach, Severe mitral regurgitation with moderate aortic regurgitation s/p bioprosthetic mitral and aortic valve replacements on 08/2019, Status post right hemicolectomy and ileocolonic anastomosis secondary to colonic ischemia and pseudoobstruction in 08/2019, s/p left atrial appendage clips, h/o CVA , HTN, gout, nonobstructive CAD, left common iliac artery aneurysm, h/o pulmonary embolism in the segmental pulmonary artery supplying the superior segment of the right lower lobe in 06/2020, 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 He also reports that he has very poor appetite and eats one main meal that is dinner and snacks all day. He also reported vomiting after dinner every day. CXR shows interstitial edema with more infiltrates at the right base. Patient is likely having CHF exacerbation. Now also found to have bacteremia. Bacteremia Blood culture gram positive cocci in clusters and chains. will need to rule out Infective endocarditis on ceftriaxone and vanco Echo ordered. Nausea/vomiting could be secondary to cyclic vomiting syndrome due to marijuana abuse or gastroparesis. unable to lay flat for 90 mins so could not do.gastric emptying study Pt is not willing to quit marijuana. Pt was counselled about marijuana abuse, alcohol abuse and smoking. ivf zofran prn Systolic CHF with EF 30%(s/p AICD) with exacerbation secondary to alcoholic cardiomyopathy will hold entresto to allow for diuresis. continue spironolactone and start IV lasix. Hypokalemia replaced Chronic cough probably due to chronic heart failure exacerbation lasix. Sinus tachycardia resolved. continue coreg. h/o alcohol abuse thiamine, folic acid multivitamin will continue to monitor for alcohol withdrawal. Obesity supportive care H/O PE and subclavian vein thrombosis. home medication Eliquis Hypomagnesemia replaced. Bigeminis in Telemetry asymptomatic electrolytes replaced. Elevated LFTs due to chf exacerbation. GERD PPI, sucralfate h/o mitral bioprosthetic valve replacement for severe MR h/o aortic bioprosthetic valve replacement for AR s/p left atrial appendage clips left common iliac artery borderline aneurysm h/o CVA h/o gout h/o bowel ischemia and pseudo obstruction s/p right hemicolectomy h/o VTach h/o ventral hernia Plan/VTE VTE Prophylaxis Ordered?: Yes VS, I&O, 24H, Fishbone Vital Signs/I&O Vital Signs Date Time Temp Pulse Resp B/P (MAP) Pulse Ox O2 Delivery O2 Flow Rate FiO2 02/26/21 12:18 97.3 98 18 110/89 (96) 95 Room Air 02/25/21 12:19 1.0 I&O- Last 24 Hours up to 6 AM 02/26/21 06:00 Intake Total 2135 ml Output Total 1325 ml Balance 810 ml Laboratory Data 24H LABS Laboratory Tests 2 02/26/21 05:02: Immature Granulocyte % (Auto) 0.7, Neutrophils (%) (Auto) 77.7H, Lymphocytes (%) (Auto) 10.9L, Monocytes (%) (Auto) 10.4H, Eosinophils (%) (Auto) 0.1, Basophils (%) (Auto) 0.2, Neutrophils # (Auto) 7.5, Lymphocytes # (Auto) 1.1L, Monocytes # (Auto) 1.0H, Eosinophils # (Auto) 0.0, Basophils # (Auto) 0.0, Nucleated Red Blood Cells % (auto) 0.0, Anion Gap 9, Glomerular Filtration Rate > 60.0, Calcium Level 8.1L CBC/BMP Laboratory Tests 02/26/21 05:02 Microbiology Microbiology 02/25/21 Blood Culture, Received Pending 02/25/21 Blood Culture, Received Pending 02/24/21 Blood Culture - Preliminary, Resulted SONI LEVINE MD Feb 26, 2021 12:50
[2021-02-26 14:26] LABS: C REACTIVE PROTEIN QUANTITATIV 4.09 MG/DL (0.00-0.30)
[2021-02-26] MEDS: cefTRIAXone SOD 2 GM in D5W MINI-BAG PLUS 50 ML IV SCH (16:53)
[2021-02-26] MEDS: RAMELTEON 8 MG TAB (ROZEREM) PO PRN (22:22)
[2021-02-27] VITALS: BP 106/70
[2021-02-27] MEDS: VANCOMYCIN HCL 1,000 MG, VIAL MATE ADAPTER 1 EACH in NS 250 ML IV SCH ×2 (02:22→09:03)
[2021-02-27 04:00] VITALS: BP 115/70
[2021-02-27 07:00] LABS: BASO % 0.4 % (0.0-1.0); EOS % 0.5 % (0.0-3.0); HEMATOCRIT 39.5 % (42.0-52.0); HEMOGLOBIN 12.9 g/dl (13.5-17.5); LYMPH # 1.1 10^3/uL (1.5-5.0); LYMPH % 13.6 % (24.0-44.0); MEAN CORPUSCULAR HEMOGLOBIN 33.7 pg (27.0-33.0); MEAN CORPUSCULAR HGB CONC 32.7 g/dl (32.0-36.5); MEAN CORPUSCULAR VOLUME 103.1 fl (80.0-96.0); MONO # 1.1 10^3/uL (0.0-0.8); MONO % 13.4 % (2.0-8.0); NEUTROPHILS # 5.8 10^3/uL (1.5-8.5); NEUTROPHILS % 71.7 % (36.0-66.0); PLATELET COUNT, AUTOMATED 151 10^3/uL (150-450); RED BLOOD COUNT 3.83 10^6/uL (4.30-6.10)
[2021-02-27 07:17] LABS: BLOOD UREA NITROGEN 20 MG/DL (7-18); CALCIUM LEVEL 8.4 MG/DL (8.5-10.1); CARBON DIOXIDE LEVEL 27 MEQ/L (21-32); CHLORIDE LEVEL 107 MEQ/L (98-107); GLOMERULAR FILTRATION RATE > 60.0 (>60); GLUCOSE, FASTING 91 MG/DL (70-100); POTASSIUM SERUM 3.4 MEQ/L (3.5-5.1); SODIUM LEVEL 141 MEQ/L (136-145)
[2021-02-27 07:21] LABS: ERYTHROCYTE SEDIMENTATION RATE 8 mm/hr (0-15)
[2021-02-27 08:00] VITALS: BP 138/98
[2021-02-27 08:24] LABS: MAGNESIUM LEVEL 1.7 MG/DL (1.8-2.4)
[2021-02-27] MEDS: THIAMINE 100 MG TAB PO SCH (08:59)
[2021-02-27] MEDS: CARVedilol 12.5 MG TAB PO SCH ×2 (09:00→21:42)
[2021-02-27] MEDS: PANTOPRAZOLE 40MG TAB (PROTONIX) PO SCH (09:00)
[2021-02-27] MEDS: MULTIVITAMINS/MINERALS THERAP 1 TAB PO SCH (09:00)
[2021-02-27] MEDS: FOLIC ACID 1 MG TAB PO SCH (09:00)
[2021-02-27] MEDS: SPIRONOLACTONE 25 MG TAB PO SCH (09:01)
[2021-02-27] MEDS: FUROSEMIDE 40MG/4ML VIAL (J1940) IV SCH (09:01)
[2021-02-27] MEDS: POTASSIUM CHLORIDE 10 MEQ SR TABLET PO SCH (09:02)
[2021-02-27] MEDS: SUCRALFATE 1 GM TAB PO SCH ×2 (09:02→21:41)
[2021-02-27] MEDS: APIXABAN 5 MG TAB (ELIQUIS) PO SCH ×2 (09:02→21:41)
[2021-02-27] MEDS: DOCUSATE SODIUM 100MG CAPSULE PO SCH (09:03)
[2021-02-27] MEDS: ENTRESTO 97-103MG TABLET (SACUBITRIL/VALSARTAN) PO SCH ×2 (09:25→21:41)
--- NOTE | 2021-02-27 11:17 | IPNPDOC ---
Subjective Date Seen The patient was seen on 02/27/21. Subjective Chief Complaint/HPI Feeling better today. Cough has almost resolved. No nausea or vomiting. Though continues to have poor appetite. No fever or chills. Blood culture was staph capitis. repeat 2 sets before starting antibiotics are negative. So this is likely a contaminant. Weight is going down nicely with diuresis. Objective Physical Examination General Exam: Positive: Alert, Cooperative, No Acute Distress Eye Exam: Positive: PERRLA, Conjunctiva & lids normal ENT Exam: Positive: Atraumatic, Mucous membr. moist/pink Neck Exam: Positive: Supple Chest Exam: Positive: Clear to auscultation; Negative: Rales, Rhonchi Heart Exam: Positive: Rate Normal, Irregular Rhythm, Normal S1, Normal S2, Murmurs; Negative: Rubs Telemetry: Positive: Other Telemetry: (bigemini) Abdomen Exam: Positive: Normal bowel sounds, Soft; Negative: Tenderness, Hepatospenomegaly Extremity Exam: Positive: Edema (1+); Negative: Clubbing, Cyanosis Skin Exam: Negative: Rash Neuro Exam: Positive: Normal Gait, Normal Speech, Strength at 5/5 X4 ext Psych Exam: Positive: Mental status NL, Memory Intact, Oriented x 3 Assessment /Plan Assessment 45 y/o M with h/o systolic CHF with EF 30%(s/p AICD 12/31/2019), alcoholic cardiomyopathy, h/o V tach, Severe mitral regurgitation with moderate aortic regurgitation s/p bioprosthetic mitral and aortic valve replacements on 08/2019, Status post right hemicolectomy and ileocolonic anastomosis secondary to colonic ischemia and pseudoobstruction in 08/2019, s/p left atrial appendage clips, h/o CVA , HTN, gout, nonobstructive CAD, left common iliac artery aneurysm, h/o pulmonary embolism in the segmental pulmonary artery supplying the superior segment of the right lower lobe in 06/2020, 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 He also reports that he has very poor appetite and eats one main meal that is dinner and snacks all day. He also reported vomiting after dinner every day. CXR shows interstitial edema with more infiltrates at the right base. Patient is likely having CHF exacerbation. Now also found to have bacteremia. Bacteremia Blood culture 1/3 bottles postive fro staph capitis. This is likely a contaminant will stop vanco and only continue ceftriaxone for now. Will discuss with ID before discontinuing antibiotics completely. Echo done, reports pending. Nausea/vomiting could be secondary to cyclic vomiting syndrome due to marijuana abuse or gastroparesis or due to CHF exacerbation. unable to lay flat for 90 mins so could not do.gastric emptying study Pt is not willing to quit marijuana. Pt was counselled about marijuana abuse, alcohol abuse and smoking. ivf zofran prn Systolic CHF with EF 30%(s/p AICD) with exacerbation secondary to alcoholic cardiomyopathy will hold entresto to allow for diuresis. continue spironolactone and start torsemide. Hypokalemia replaced Chronic cough probably due to chronic heart failure exacerbation lasix. Sinus tachycardia resolved. continue coreg. h/o alcohol abuse thiamine, folic acid multivitamin will continue to monitor for alcohol withdrawal. Obesity supportive care H/O PE and subclavian vein thrombosis. home medication Eliquis Hypomagnesemia replaced. Bigeminis in Telemetry asymptomatic electrolytes replaced. Elevated LFTs due to chf exacerbation. GERD PPI, sucralfate h/o mitral bioprosthetic valve replacement for severe MR h/o aortic bioprosthetic valve replacement for AR s/p left atrial appendage clips left common iliac artery borderline aneurysm h/o CVA h/o gout h/o bowel ischemia and pseudo obstruction s/p right hemicolectomy h/o VTach h/o ventral hernia Plan/VTE VTE Prophylaxis Ordered?: Yes VS, I&O, 24H, Fishbone Vital Signs/I&O Vital Signs Date Time Temp Pulse Resp B/P (MAP) Pulse Ox O2 Delivery O2 Flow Rate FiO2 02/27/21 08:00 98.0 47 16 138/98 (111) 96 Room Air 02/25/21 12:19 1.0 I&O- Last 24 Hours up to 6 AM 02/27/21 06:00 Intake Total 1080 ml Output Total 600 ml Balance 480 ml Laboratory Data 24H LABS Laboratory Tests 2 02/26/21 16:52: Vancomycin Level Trough 18.7 02/27/21 06:30: Immature Granulocyte % (Auto) 0.4, Neutrophils (%) (Auto) 71.7H, Lymphocytes (%) (Auto) 13.6L, Monocytes (%) (Auto) 13.4H, Eosinophils (%) (Auto) 0.5, Basophils (%) (Auto) 0.4, Neutrophils # (Auto) 5.8, Lymphocytes # (Auto) 1.1L, Monocytes # (Auto) 1.1H, Eosinophils # (Auto) 0.0, Basophils # (Auto) 0.0, Nucleated Red Blood Cells % (auto) 0.0, Erythrocyte Sedimentation Rate 8, Anion Gap 7L, Glomerular Filtration Rate > 60.0, Calcium Level 8.4L, Magnesium Level 1.7L CBC/BMP Laboratory Tests 02/26/21 16:52 02/27/21 06:30 Microbiology Microbiology 02/27/21 Blood Culture, Received Pending 02/25/21 Blood Culture - Preliminary, Resulted No growth after 24 hours . All specim... 02/25/21 Blood Culture - Preliminary, Resulted No growth after 24 hours . All specim... 02/24/21 Blood Culture - Final, Complete Staphylococcus Capitis SONI LEVINE MD Feb 27, 2021 11:17
[2021-02-27 12:00] VITALS: BP 128/99
[2021-02-27] MEDS ORDERED: MAG SULF 1GM/100ML (MAG RUN) 1 GM in IV 1 EA IV ONE (12:00)
[2021-02-27] MEDS ORDERED: POTASSIUM CHLORIDE 10 MEQ SR TABLET PO ONE (12:00)
[2021-02-27 16:00] VITALS: BP 122/80
[2021-02-27] MEDS: cefTRIAXone SOD 2 GM in D5W MINI-BAG PLUS 50 ML IV SCH (16:39)
[2021-02-27] MEDS: TORSEMIDE 20 MG TAB PO SCH (16:39)
[2021-02-27 20:00] VITALS: BP 112/89
[2021-02-27] MEDS: RAMELTEON 8 MG TAB (ROZEREM) PO PRN (21:42)
[2021-02-28] VITALS: BP 110/69
[2021-02-28] MEDS ORDERED: EMLA CREAM 5GM TUBE (LIDOCAINE/PRILOCAINE) TOP ONE (05:05)
[2021-02-28 06:02] LABS: BASO % 0.4 % (0.0-1.0); EOS # 0.1 10^3/uL (0.0-0.5); EOS % 0.9 % (0.0-3.0); HEMATOCRIT 42.8 % (42.0-52.0); HEMOGLOBIN 14.4 g/dl (13.5-17.5); LYMPH % 12.4 % (24.0-44.0); MEAN CORPUSCULAR HGB CONC 33.6 g/dl (32.0-36.5); MEAN CORPUSCULAR VOLUME 101.2 fl (80.0-96.0); MONO # 1.3 10^3/uL (0.0-0.8); MONO % 16.3 % (2.0-8.0); NEUTROPHILS # 5.7 10^3/uL (1.5-8.5); NEUTROPHILS % 69.5 % (36.0-66.0); PLATELET COUNT, AUTOMATED 164 10^3/uL (150-450); RED BLOOD COUNT 4.23 10^6/uL (4.30-6.10); WHITE BLOOD COUNT 8.2 10^3/uL (4.0-10.0)
[2021-02-28 06:24] LABS: BLOOD UREA NITROGEN 20 MG/DL (7-18); CALCIUM LEVEL 8.5 MG/DL (8.5-10.1); CARBON DIOXIDE LEVEL 32 MEQ/L (21-32); CHLORIDE LEVEL 102 MEQ/L (98-107); CREATININE FOR GFR 1.07 MG/DL (0.70-1.30); GLOMERULAR FILTRATION RATE > 60.0 (>60); GLUCOSE, FASTING 100 MG/DL (70-100); POTASSIUM SERUM 3.6 MEQ/L (3.5-5.1); SODIUM LEVEL 139 MEQ/L (136-145)
[2021-02-28 07:21] LABS: MAGNESIUM LEVEL 1.8 MG/DL (1.8-2.4)
[2021-02-28 07:35] VITALS: BP 115/91
[2021-02-28] MEDS ORDERED: TORS20TA2 PO (08:09)
--- NOTE | 2021-02-28 08:12 | ECHO ---
ECHOCARDIOGRAM DATE OF PROCEDURE: 02/27/2021 Age: 45 Gender: Male Height: Weight: REFERRING PHYSICIAN: Liss Mello MD PATIENT LOCATION: Room 3230. REASON FOR STUDY: Bacteriuria. 2D MEASUREMENTS: IVS 1.1 cm LV 5.8 cm LVPW 5.8 cm LA 5.6 cm Aorta 3.8 cm IVC 2.3 cm DOPPLER MEASUREMENT Peak velocity across the aortic valve 1.5 m/s Peak velocity across the LVOT 0.52 m/s Mitral E 1.7 Mitral A 1.1 with a ratio of 1.5 Maximum tricuspid valve velocity 3.2 m/s 2D COMMENTS: 1. Mildly dilated left ventricle with normal left ventricular wall thickness and a severely depressed global left ventricular systolic function. The estimated left ventricular systolic ejection fraction is 20%. 2. Moderately enlarged left atrium. The right atrium and the right ventricle also appear to be mildly enlarged. 3. The atrial septum appeared to be normal without evidence of defect or shunt. 4. Mildly dilated aortic root at 3.8 cm. 5. No pericardial effusion seen. 6. Could not rule out a bioprosthetic aortic valve, leaflet excursion was not well visualized. A bioprosthetic mitral valve also noted, leaflet excursion not well visualized. Normal tricuspid valve and pulmonic valve. The proximal pulmonary artery branches were not well visualized. 7. The inferior vena cava was dilated, central venous pressure is most likely elevated. 8. Pacemaker/AICD wire artifacts noted. DOPPLER: Only moderate tricuspid regurgitation detected. The calculated pulmonary artery systolic pressure varies between 40 to 50 mmHg. Assessment of the left ventricular diastolic function appeared to be normal. IMPRESSION: 1. Severe global left ventricular systolic dysfunction with global hypokinesis. 2. Probably bioprosthetic aortic valve without any significant aortic regurgitation or stenosis. 3. Bioprosthetic mitral valve with normal functioning. There appeared to be trace mitral regurgitation in limited views. 4. Moderate tricuspid regurgitation with moderate pulmonary hypertension and dilated right heart chambers. 5. Pacemaker/wire artifacts noted.
[2021-02-28] MEDS: DOCUSATE SODIUM 100MG CAPSULE PO SCH (08:54)
[2021-02-28] MEDS: POTASSIUM CHLORIDE 10 MEQ SR TABLET PO SCH (08:54)
[2021-02-28] MEDS: THIAMINE 100 MG TAB PO SCH (08:54)
[2021-02-28] MEDS: SUCRALFATE 1 GM TAB PO SCH (08:54)
[2021-02-28] MEDS: PANTOPRAZOLE 40MG TAB (PROTONIX) PO SCH (08:54)
[2021-02-28] MEDS: TORSEMIDE 20 MG TAB PO SCH (08:54)
[2021-02-28] MEDS: APIXABAN 5 MG TAB (ELIQUIS) PO SCH (08:54)
[2021-02-28] MEDS: MULTIVITAMINS/MINERALS THERAP 1 TAB PO SCH (08:54)
[2021-02-28] MEDS: SPIRONOLACTONE 25 MG TAB PO SCH (08:54)
[2021-02-28 08:55] VITALS: BP 122/60
[2021-02-28] MEDS: CARVedilol 12.5 MG TAB PO SCH (08:55)
[2021-02-28] MEDS: FOLIC ACID 1 MG TAB PO SCH (08:55)
--- NOTE | 2021-02-28 10:41 | DS.PDOC ---
Discharge Summary General Date of Admission Feb 24, 2021 at 08:20 Date of Discharge 02/28/21 Discharge Summary PROCEDURES PERFORMED DURING STAY: [None]. DISCHARGE DIAGNOSES: Systolic CHF exacerbation Possible cyclical vomiting syndrome due to marijuana. Positive blood culture 08/30 was staph capitis which is a skin contaminant. Hypokalemia and hypomagnesemia Bigemini and NSVT in telemetry Moderate pulmonary hypertension. SECONDARY DIAGNOSIS: Systolic CHF with EF 20%(s/p AICD 12/31/2019), h/o V tach, alcoholic cardiomyopathy, h/o Severe mitral regurgitation with moderate aortic regurgitation s/p bioprosthetic mitral and aortic valve replacements on 08/2019, Status post right hemicolectomy and ileocolonic anastomosis secondary to colonic ischemia and pseudoobstruction in 08/2019 (Same admission post cardiac surgery complication), s/p left atrial appendage clips, h/o CVA , HTN, gout, nonobstructive CAD, left common iliac artery aneurysm, h/o pulmonary embolism in the segmental pulmonary artery supplying the superior segment of the right lower lobe in 06/2020, 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 HOSPITAL COURSE: 45 y/o M with h/o systolic CHF with EF 30%(s/p AICD 12/31/2019), alcoholic cardiomyopathy, h/o V tach, Severe mitral regurgitation with moderate aortic regurgitation s/p bioprosthetic mitral and aortic valve replacements on 08/2019, Status post right hemicolectomy and ileocolonic anastomosis secondary to colonic ischemia and pseudoobstruction in 08/2019, s/p left atrial appendage clips, h/o CVA , HTN, gout, nonobstructive CAD, left common iliac artery aneurysm, h/o pulmonary embolism in the segmental pulmonary artery supplying the superior segment of the right lower lobe in 06/2020, 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 He also reports that he has very poor appetite and eats one main meal that is dinner and snacks all day. He also reported vomiting after dinner every day. CXR shows interstitial edema with more infiltrates at the right base. Patient is likely having CHF exacerbation. Now also found to have bacteremia. Bacteremia Blood culture 1/3 bottles positive for staph capitis. This is a contaminant. Antibiotics stopped. discussed over phone with ID. Echo done, reports pending. Nausea/vomiting now resolved could be secondary to cyclic vomiting syndrome due to marijuana abuse or gastroparesis or due to CHF exacerbation. unable to lay flat for 90 mins so could not do.gastric emptying study Pt is not willing to quit marijuana. Pt was counselled about marijuana abuse, alcohol abuse and smoking. Systolic CHF with EF 20%(s/p AICD) with exacerbation Most recent echo this admission shows EF of 20% with moderate pulmonary hypertension. secondary to alcoholic cardiomyopathy continue entresto. continue spironolactone and start torsemide. Hypokalemia replaced Chronic cough probably due to chronic heart failure exacerbation improved with diuresis Sinus tachycardia resolved. continue coreg. h/o alcohol abuse thiamine, folic acid multivitamin will continue to monitor for alcohol withdrawal. Obesity supportive care H/O PE and subclavian vein thrombosis. home medication Eliquis Hypomagnesemia replaced. Bigeminis in Telemetry asymptomatic electrolytes replaced. Elevated LFTs due to chf exacerbation. GERD PPI, sucralfate h/o mitral bioprosthetic valve replacement for severe MR h/o aortic bioprosthetic valve replacement for AR s/p left atrial appendage clips left common iliac artery borderline aneurysm h/o CVA h/o gout h/o bowel ischemia and pseudo obstruction s/p right hemicolectomy h/o VTach h/o ventral hernia DISCHARGE MEDICATIONS: Please see below. ALLERGIES: Please see below. PHYSICAL EXAMINATION ON DISCHARGE: VITAL SIGNS: Please see below. General Exam: Positive: Alert, Cooperative, No Acute Distress Eye Exam: Positive: PERRLA, Conjunctiva & lids normal ENT Exam: Positive: Atraumatic, Mucous membr. moist/pink Neck Exam: Positive: Supple Chest Exam: Positive: Clear to auscultation; Negative: Rales, Rhonchi Heart Exam: Positive: Rate Normal, Irregular Rhythm, Normal S1, Normal S2, Mu rmurs; Negative: Rubs Telemetry: Positive: Other Telemetry: (bigemini) Abdomen Exam: Positive: Normal bowel sounds, Soft; Negative: Tenderness, Hepatosplenomegaly Extremity Exam: Positive: Edema trace Negative: Clubbing, Cyanosis Skin Exam: Negative: Rash Neuro Exam: Positive: Normal Gait, Normal Speech, Strength at 5/5 X4 ext Psych Exam: Positive: Mental status NL, Memory Intact, Oriented x 3 LABORATORY DATA: Please see below. ACTIVITY: [As tolerated]. DIET: DASH and 1.8 liter fluid restriction DISPOSITION: Home, Self-Care. DISCHARGE INSTRUCTIONS: Follow up with DR leyva in 1 to 2 weeks PMD in 1 week DISCHARGE CONDITION: [Stable]. TIME SPENT ON DISCHARGE: 35minutes. Vital Signs/I&Os Vital Signs Date Time Temp Pulse Resp B/P (MAP) Pulse Ox O2 Delivery O2 Flow Rate FiO2 02/28/21 08:55 88 122/60 02/28/21 07:35 96.9 18 95 Room Air 02/25/21 12:19 1.0 I&O- Last 24 Hours up to 6 AM 02/28/21 06:00 Intake Total 1605 ml Output Total 1000 ml Balance 605 ml Laboratory Data Labs 24H Laboratory Tests 2 02/28/21 05:46: Immature Granulocyte % (Auto) 0.5, Neutrophils (%) (Auto) 69.5H, Lymphocytes (%) (Auto) 12.4L, Monocytes (%) (Auto) 16.3H, Eosinophils (%) (Auto) 0.9, Basophils (%) (Auto) 0.4, Neutrophils # (Auto) 5.7, Lymphocytes # (Auto) 1.0L, Monocytes # (Auto) 1.3H, Eosinophils # (Auto) 0.1, Basophils # (Auto) 0.0, Nucleated Red Blood Cells % (auto) 0.0, Anion Gap 5L, Glomerular Filtration Rate > 60.0, Ca lcium Level 8.5, Magnesium Level 1.8 CBC/BMP Laboratory Tests 02/28/21 05:46 Microbiology Microbiology 02/27/21 Blood Culture - Preliminary, Resulted No growth after 24 hours . All specim... 02/25/21 Blood Culture - Preliminary, Resulted No Growth after 48 hours. All Specime... 02/25/21 Blood Culture - Preliminary, Resulted No Growth after 48 hours. All Specime... 02/24/21 Blood Culture - Final, Complete Staphylococcus Capitis Discharge Medications Scheduled Acetaminophen/Diphenhydramine (Acetaminophen Pm Caplet) 1 Each Tablet, 2 TAB PO QHS, (Reported) Apixaban (Eliquis) 5 Mg Tablet, 5 MG PO BID, (Reported) Carvedilol (Carvedilol) 25 Mg Tablet, 25 MG PO BID, (Reported) Docusate Sodium (Docusate Sodium) 100 Mg Capsule, 100 MG PO DAILY, (Reported) Folic Acid (Folic Acid) 1 Mg Tablet, 1 MG PO DAILY, (Reported) Multivitamins (Thera M Plus Tablet) 1 Each Tablet, 1 TAB PO DAILY, (Reported) Pantoprazole Sodium (Pantoprazole Sodium) 40 Mg Tablet.dr, 40 MG PO DAILY, (Reported) Sacubitril/Valsartan (Entresto 97 mg-103 mg Tablet) 1 Each Tablet, 1 TAB PO BID, (Reported) Spironolactone (Spironolactone) 25 Mg Tablet, 25 MG PO DAILY, (Reported) Sucralfate (Sucralfate) 1 Gm Tablet, 1 GRAM PO BID, (Reported) Thiamine Hcl (Vitamin B-1) 100 Mg Tablet, 100 MG PO DAILY, (Reported) Torsemide (Torsemide) 20 Mg Tablet, 1 TAB PO DAILY Scheduled PRN Nitroglycerin (Nitrostat) 0.4 Mg Tab.subl, 0.4 MG SL NITRO PRN for CHEST PAIN, (Reported) Allergies Coded Allergies: No Known Drug Allergies (Verified Allergy, Unknown, 08/28/19) SONI LEVINE MD Feb 28, 2021 10:41
== END 2021-02-28 09:15 | disposition home or self-care (01) | DRG 194 ==
LOC: M ED 23:35 → M ED INP 02-24 08:20 → ENRESERV 02-24 13:40 → M PCU 02-24 14:30
PROVIDERS: ADMIT Internal Medicine; ATTEND Internal Medicine Nephrology
DX: I50.23 Acute on chronic systolic (congestive) heart failure (principal); I47.2 Ventricular tachycardia; I27.20 Pulmonary hypertension, unspecified; E83.42 Hypomagnesemia; I42.6 Alcoholic cardiomyopathy; Z95.4 Presence of other heart-valve replacement; R11.15 Cyclical vomiting syndrome unrelated to migraine; F17.210 Nicotine dependence, cigarettes, uncomplicated; F10.10 Alcohol abuse, uncomplicated; F12.10 Cannabis abuse, uncomplicated; Z91.14 Patient's other noncompliance with medication regimen; Z86.711 Personal history of pulmonary embolism; K46.9 Unspecified abdominal hernia without obstruction or gangrene; Z66 Do not resuscitate; Z79.899 Other long term (current) drug therapy; Z20.822 Contact with and (suspected) exposure to COVID-19; E66.9 Obesity, unspecified; R94.5 Abnormal results of liver function studies; Z86.73 Personal history of transient ischemic attack (TIA), and cerebral infarction without residual deficits; Z68.30 Body mass index [BMI] 30.0-30.9, adult; E87.6 Hypokalemia; R05 Cough

== ENCOUNTER → 2021-05-12 | Outpatient (CLI) | payer OTHER, MEDICAID ==
[~2021-05-12] MED LIST changes: +ENTR1TAB4 PO; +SUCR1TA PO; +TORS20TA2 PO; +VITMTA PO
[2021-05-12 15:19] LABS: HEMATOCRIT 47.9 % (42.0-52.0); HEMOGLOBIN 16.3 g/dl (13.5-17.5); MEAN CORPUSCULAR HEMOGLOBIN 33.3 pg (27.0-33.0); MEAN CORPUSCULAR VOLUME 97.8 fl (80.0-96.0); PLATELET COUNT, AUTOMATED 192 10^3/uL (150-450); WHITE BLOOD COUNT 6.3 10^3/uL (4.0-10.0)
[2021-05-12 16:00] LABS: ALBUMIN 4.1 GM/DL (3.2-5.2); ALT/SGPT 131 U/L (12-78); BILIRUBIN,TOTAL 0.9 MG/DL (0.2-1.0); BLOOD UREA NITROGEN 8 MG/DL (7-18); CARBON DIOXIDE LEVEL 25 MEQ/L (21-32); CHLORIDE LEVEL 107 MEQ/L (98-107); CREATININE FOR GFR 0.82 MG/DL (0.70-1.30); GLOMERULAR FILTRATION RATE > 60.0 (>60); GLUCOSE, FASTING 111 MG/DL (70-100); MAGNESIUM LEVEL 1.7 MG/DL (1.8-2.4); NT-PRO BNP 542 PG/ML (<125); POTASSIUM SERUM 4.5 MEQ/L (3.5-5.1); SODIUM LEVEL 140 MEQ/L (136-145); THYROID STIMULATING HORMONE 0.951 uIU/ML (0.358-3.740); TOTAL PROTEIN 7.6 GM/DL (6.4-8.2)
== END ==
LOC: M PLALAB 12:49
PROVIDERS: ATTEND Physician Assistant
DX: I47.2 Ventricular tachycardia (principal); R06.02 Shortness of breath

== ENCOUNTER 2021-11-24 15:34 | Inpatient (IN) | payer MEDICAID, OTHER ==
[~2021-11-24] VITALS: Ht 167.6 cm; Wt 84.5 kg
[~2021-11-24 15:34] MED LIST changes: -LISI20TA20 PO; +LISI20TA37 PO
[2021-11-24] MEDS ORDERED: METOCLOPRAMIDE INJ 10MG/2ML VIAL (J2765 PER 1) IV ONE (15:50)
[2021-11-24] MEDS ORDERED: NS 1,000 ML IV SCH (15:50)
[2021-11-24 16:39] LABS: BASO % 0.2 % (0.0-1.0); HEMATOCRIT 49.6 % (42.0-52.0); HEMOGLOBIN 17.2 g/dl (13.5-17.5); LYMPH # 0.5 10^3/uL (1.5-5.0); LYMPH % 7.9 % (24.0-44.0); MEAN CORPUSCULAR HEMOGLOBIN 33.1 pg (27.0-33.0); MEAN CORPUSCULAR HGB CONC 34.7 g/dl (32.0-36.5); MEAN CORPUSCULAR VOLUME 95.6 fl (80.0-96.0); MONO # 0.6 10^3/uL (0.0-0.8); MONO % 11.1 % (2.0-8.0); NEUTROPHILS # 4.6 10^3/uL (1.5-8.5); NEUTROPHILS % 79.9 % (36.0-66.0); PLATELET COUNT, AUTOMATED 191 10^3/uL (150-450); RED BLOOD COUNT 5.19 10^6/uL (4.30-6.10); WHITE BLOOD COUNT 5.7 10^3/uL (4.0-10.0)
[2021-11-24 17:14] LABS: ALBUMIN 4.5 GM/DL (3.2-5.2); BILIRUBIN,DIRECT 0.2 MG/DL (0.0-0.2); BILIRUBIN,TOTAL 1.1 MG/DL (0.2-1.0); TOTAL PROTEIN 8.4 GM/DL (6.4-8.2)
[2021-11-24] MEDS ORDERED: HALOPERIDOL 5MG/ML VIAL (J1630 PER 1) IV ONE (17:35)
[2021-11-24 17:45] LABS: MAGNESIUM LEVEL 1.7 MG/DL (1.8-2.4)
[2021-11-24] MEDS ORDERED: ISOVUE-370 76% 100ML VIAL As Ordered ONE (17:46)
[2021-11-24 17:48] LABS: RSV AMPLIFICATION NEGATIVE (NEGATIVE)
[2021-11-24] MEDS ORDERED: ACETAMINOPHEN TAB 650MG DOSE (2X325MG) PO PRN (22:10)
[2021-11-24] MEDS ORDERED: PROMETHAZINE 25MG/ML 1ML VIAL IV PRN (22:10)
[2021-11-24] MEDS ORDERED: HOME MED LIST COMPLETE! XX SCH (22:30)
[2021-11-24] MEDS ORDERED: LORazepam 2 MG TAB PO PRN (22:40)
[2021-11-24] MEDS ORDERED: cefTRIAXone SOD 1 GM in D5W MINI-BAG PLUS 50 ML IV SCH (23:00)
[2021-11-25] VITALS (9 sets, daily range): BP systolic 117–162; BP diastolic 78–105; O2SAT 94–97
[2021-11-25] MEDS ORDERED: DOXYCYCLINE HYCLATE 100 MG in D5W MINI-BAG PLUS 100 ML IV SCH ×2
[2021-11-25] MEDS: NS 1,000 ML IV SCH ×2 (00:06→09:04)
[2021-11-25] MEDS: METOCLOPRAMIDE INJ 10MG/2ML VIAL (J2765 PER 1) IV SCH ×2 (01:53→09:02)
[2021-11-25] MEDS ORDERED: REMDESIVIR 200 MG in NS 250 ML IV ONE (02:00)
[2021-11-25] MEDS ORDERED: SODIUM CHLORIDE 0.9% INJ 10 ML SYR IV ONE (04:00)
[2021-11-25 06:40] LABS: HEMATOCRIT 38.9 % (42.0-52.0); MEAN CORPUSCULAR HEMOGLOBIN 34.2 pg (27.0-33.0); MEAN CORPUSCULAR HGB CONC 35.7 g/dl (32.0-36.5); MEAN CORPUSCULAR VOLUME 95.8 fl (80.0-96.0); PLATELET COUNT, AUTOMATED 135 10^3/uL (150-450); RED BLOOD COUNT 4.06 10^6/uL (4.30-6.10); WHITE BLOOD COUNT 4.6 10^3/uL (4.0-10.0)
[2021-11-25 07:01] LABS: HEMOGLOBIN 13.9 g/dl (13.5-17.5)
[2021-11-25 07:07] LABS: ALBUMIN 3.4 GM/DL (3.2-5.2); ALT/SGPT 102 U/L (12-78); BILIRUBIN,DIRECT 0.2 MG/DL (0.0-0.2); BILIRUBIN,TOTAL 0.5 MG/DL (0.2-1.0); BLOOD UREA NITROGEN 17 MG/DL (7-18); CALCIUM LEVEL 8.8 MG/DL (8.5-10.1); CARBON DIOXIDE LEVEL 24 MEQ/L (21-32); CHLORIDE LEVEL 105 MEQ/L (98-107); CREATININE FOR GFR 1.21 MG/DL (0.70-1.30); GLOMERULAR FILTRATION RATE > 60.0 (>60); GLUCOSE, FASTING 107 MG/DL (70-100); MAGNESIUM LEVEL 1.7 MG/DL (1.8-2.4); POTASSIUM SERUM 3.3 MEQ/L (3.5-5.1); SODIUM LEVEL 137 MEQ/L (136-145); TOTAL PROTEIN 6.8 GM/DL (6.4-8.2)
[2021-11-25 07:12] LABS: APPEARANCE, URINE HAZY (CLEAR); BACTERIA, URINE AUTO NEGATIVE (NEGATIVE); BILIRUBIN, URINE AUTO NEGATIVE (NEGATIVE); BLOOD, URINE BLOOD 2+ (NEGATIVE); COLOR, URINE AMBER (YELLOW); GLUCOSE, URINE (UA) AUTO 1+ mg/dL (NEGATIVE); KETONE, URINE AUTO TRACE mg/dL (NEGATIVE); LEUKOCYTE ESTERASE, URINE AUTO NEGATIVE (NEGATIVE); NITRITE, URINE AUTO NEGATIVE (NEGATIVE); PROTEIN, URINE AUTO 1+ mg/dL (NEGATIVE); RBC, URINE AUTO 60 /HPF (0-3); SQUAMOUS EPITHELIAL CELL UR AU 0 /HPF (0-6); UROBILINOGEN, URINE AUTO 0.2 mg/dL (0.0-2.0); WBC, URINE AUTO 19 /HPF (0-3)
[2021-11-25 07:32] LABS: INR 1.19; PROTHROMBIN TIME 15.6 SECONDS (12.7-14.5)
[2021-11-25 07:33] LABS: PARTIAL THROMBOPLASTIN TIME 31.4 SECONDS (25.9-37.0)
[2021-11-25 07:35] LABS: D-DIMER QUANT 871.71 ng/ml (<500)
[2021-11-25] MEDS ORDERED: MAG SULF 1GM/100ML (MAG RUN) 1 GM in IV 1 EA IV ONE (07:55)
[2021-11-25] MEDS ORDERED: POTASSIUM CHLORIDE 10MEQ SR TABLET PO ONE (07:55)
[2021-11-25 07:56] LABS: SPECIFIC GRAVITY URINE AUTO 1.002 (1.002-1.035)
[2021-11-25] MEDS ORDERED: CARVedilol 12.5 MG TAB PO SCH (09:00)
[2021-11-25] MEDS ORDERED: THIAMINE 100 MG TAB PO SCH (09:00)
[2021-11-25] MEDS ORDERED: BARICITINIB 2MG TABLET (OLUMIANT) FOR EUA PO SCH (09:00)
[2021-11-25] MEDS ORDERED: PANTOPRAZOLE 40MG TAB (PROTONIX) PO SCH (09:00)
[2021-11-25] MEDS ORDERED: dexameTHASONE 4 MG/ML 1ML VIAL (J1100 PER 1MG) IV SCH (09:00)
[2021-11-25] MEDS ORDERED: SPIRONOLACTONE 25 MG TAB PO SCH (09:00)
[2021-11-25] MEDS ORDERED: APIXABAN 5 MG TAB (ELIQUIS) PO SCH (09:00)
[2021-11-25] MEDS ORDERED: FOLIC ACID 1 MG TAB PO SCH (09:00)
[2021-11-25] MEDS ORDERED: SUCRALFATE 1 GM TAB PO SCH (09:00)
[2021-11-25] MEDS ORDERED: MULTIVITAMINS/MINERALS THERAP 1 TAB PO SCH (09:00)
[2021-11-25] MEDS ORDERED: ENTRESTO 97-103MG TABLET (SACUBITRIL/VALSARTAN) PO SCH (09:00)
[2021-11-25] MEDS ORDERED: REMDESIVIR 100 MG in NS 250 ML IV SCH (23:00)
[2021-11-26] MEDS ORDERED: SODIUM CHLORIDE 0.9% INJ 10 ML SYR IV SCH
[2021-11-26] MEDS ORDERED: DOCUSATE SODIUM 100MG CAPSULE PO SCH (09:00)
[2021-11-29 16:12] LABS: BODY FLUID CULTURE Not indicated. (.); LEGIONELLA ANTIGEN URINE Negative (Negative); ORGANISM ID Not indicated. (.); SPECIMEN SOURCE Urine (.); URINE STREP PNEUMONIAE ANTIGEN Negative (Negative)
== END 2021-11-25 16:50 | disposition home or self-care (01) | DRG 249 ==
LOC: EDBD 15:34 → M ED 15:34 → M ED INP 22:10 → ENRESERV 23:53 → M 4MAIN 11-25 01:48
PROVIDERS: ADMIT Family Medicine; ATTEND Internal Medicine
PROC: XW033E5 Introduction of Remdesivir Anti-infective into Peripheral Vein, Percutaneous Approach, New Technology Group 5 (ICD-10-PCS; principal; 2021-11-24)
PROC: 3E0333Z Introduction of Anti-inflammatory into Peripheral Vein, Percutaneous Approach (ICD-10-PCS; 2021-11-24)
DX: R11.2 Nausea with vomiting, unspecified (principal); U07.1 COVID-19; E87.2 Acidosis; I42.6 Alcoholic cardiomyopathy; I11.0 Hypertensive heart disease with heart failure; I50.22 Chronic systolic (congestive) heart failure; F10.20 Alcohol dependence, uncomplicated; F12.188 Cannabis abuse with other cannabis-induced disorder; R19.7 Diarrhea, unspecified; Z66 Do not resuscitate; F17.200 Nicotine dependence, unspecified, uncomplicated; Z95.3 Presence of xenogenic heart valve; Z79.01 Long term (current) use of anticoagulants; Z95.810 Presence of automatic (implantable) cardiac defibrillator; Z79.899 Other long term (current) drug therapy; Z90.49 Acquired absence of other specified parts of digestive tract

== ENCOUNTER → 2022-02-10 | Outpatient (REF) | payer OTHER | LOC: M SFHCPLAZ 14:19 | PROVIDERS: ATTEND Family Medicine | DX: M54.50 Low back pain, unspecified (principal); F10.20 Alcohol dependence, uncomplicated; Z72.0 Tobacco use ==

== ENCOUNTER → 2022-02-11 | Outpatient (CLI) | payer OTHER ==
[2022-02-11 15:55] LABS: BASO % 0.5 % (0.0-1.0); EOS # 0.1 10^3/uL (0.0-0.5); EOS % 1.5 % (0.0-3.0); HEMATOCRIT 47.8 % (42.0-52.0); HEMATOCRIT 48.2 % (42.0-52.0); HEMOGLOBIN 16.5 g/dl (13.5-17.5); LYMPH # 1.2 10^3/uL (1.5-5.0); MEAN CORPUSCULAR HEMOGLOBIN 33.1 pg (27.0-33.0); MEAN CORPUSCULAR HGB CONC 34.2 g/dl (32.0-36.5); MEAN CORPUSCULAR VOLUME 96.6 fl (80.0-96.0); MONO # 0.9 10^3/uL (0.0-0.8); MONO % 15.7 % (2.0-8.0); NEUTROPHILS # 3.6 10^3/uL (1.5-8.5); PLATELET COUNT, AUTOMATED 188 10^3/uL (150-450); RED BLOOD COUNT 4.99 10^6/uL (4.30-6.10); WHITE BLOOD COUNT 5.9 10^3/uL (4.0-10.0)
[2022-02-11 16:08] LABS: ALBUMIN 3.6 GM/DL (3.2-5.2); ALT/SGPT 120 U/L (12-78); BILIRUBIN,TOTAL 0.7 MG/DL (0.2-1.0); BLOOD UREA NITROGEN 6 MG/DL (7-18); CALCIUM LEVEL 9.6 MG/DL (8.5-10.1); CARBON DIOXIDE LEVEL 24 MEQ/L (21-32); CHLORIDE LEVEL 101 MEQ/L (98-107); CREATININE FOR GFR 0.97 MG/DL (0.70-1.30); GLOMERULAR FILTRATION RATE > 60.0 (>60); GLUCOSE, FASTING 96 MG/DL (70-100); POTASSIUM SERUM 4.6 MEQ/L (3.5-5.1); SODIUM LEVEL 134 MEQ/L (136-145); TOTAL PROTEIN 7.1 GM/DL (6.4-8.2)
[2022-02-11 16:16] LABS: VITAMIN B12 LEVEL 490 PG/ML (247-911)
== END ==
LOC: M PLALAB 12:39
PROVIDERS: ATTEND Student in an Organized Health Care Education/Training Program
DX: M54.50 Low back pain, unspecified (principal); F10.20 Alcohol dependence, uncomplicated; Z72.0 Tobacco use

== ENCOUNTER → 2022-02-15 | Outpatient (CLI) | payer OTHER | LOC: M PLAIMG 12:24 | PROVIDERS: ATTEND Student in an Organized Health Care Education/Training Program | DX: M54.50 Low back pain, unspecified (principal); M51.36 Other intervertebral disc degeneration, lumbar region; M51.37 Other intervertebral disc degeneration, lumbosacral region; M48.02 Spinal stenosis, cervical region; M50.322 Other cervical disc degeneration at C5-C6 level ==

== ENCOUNTER 2022-11-29 20:56 | Inpatient (IN) | payer OTHER ==
[~2022-11-29] VITALS: Ht 167.6 cm; Wt 79.2 kg
[2022-11-29] MEDS ORDERED: ADENOSINE 6MG 2ML INJECTION As Ordered ONE ×2 (20:59→21:01)
[2022-11-29] MEDS ORDERED: ADENOSINE 6MG 2ML INJECTION IV STA ×2 (21:06)
[2022-11-29] MEDS ORDERED: METOPROLOL 5 MG/5 ML VIAL As Ordered ONE (21:13)
[2022-11-29] MEDS: METOPROLOL 5 MG/5 ML VIAL IV PRN ×7 (21:17→22:02)
[2022-11-29] MEDS ORDERED: METOPROLOL TART 25 MG TABLET PO ONE (21:25)
[2022-11-29 21:26] LABS: VENOUS BASE EXCESS -6.1 (-2.0-2.0); VENOUS HCO3 17.8 MEQ/L (23.0-27.0); VENOUS O2 SATURATION 99.2 % (60.0-80.0); VENOUS PARTIAL PRESSURE CO2 31.1 mmHg (38.0-50.0); VENOUS PH 7.375 UNITS (7.330-7.430); VENOUS STANDARD HCO3 19.6 MEQ/L; VENOUS TOTAL CO2 18.7 MEQ/L (24.0-28.0)
[2022-11-29] MEDS ORDERED: CARVedilol 12.5 MG TAB PO ONE (21:30)
[2022-11-29] MEDS ORDERED: LORazepam 2 MG/ML 1ML VIAL As Ordered ONE (21:32)
[2022-11-29] MEDS ORDERED: LORazepam 2 MG/ML 1ML VIAL IV STA (21:33)
[2022-11-29 21:43] LABS: BASO % 0.1 % (0.0-1.0); EOS % 0.1 % (0.0-3.0); HEMATOCRIT 42.7 % (42.0-52.0); HEMOGLOBIN 14.6 g/dl (13.5-17.5); LYMPH # 0.7 10^3/uL (1.5-5.0); LYMPH % 4.6 % (24.0-44.0); MEAN CORPUSCULAR HEMOGLOBIN 33.3 pg (27.0-33.0); MEAN CORPUSCULAR HGB CONC 34.2 g/dl (32.0-36.5); MEAN CORPUSCULAR VOLUME 97.5 fl (80.0-96.0); MONO # 1.5 10^3/uL (0.0-0.8); MONO % 10.3 % (2.0-8.0); NEUTROPHILS # 12.4 10^3/uL (1.5-8.5); NEUTROPHILS % 84.2 % (36.0-66.0); PLATELET COUNT, AUTOMATED 212 10^3/uL (150-450); RED BLOOD COUNT 4.38 10^6/uL (4.30-6.10); WHITE BLOOD COUNT 14.8 10^3/uL (4.0-10.0)
[2022-11-29] MEDS ORDERED: ONDANSETRON 4MG 2ML VIAL IV ONE (21:45)
[2022-11-29 21:53] LABS: ETHYL ALCOHOL (ETHANOL) < 0.003 % (0.000-0.010)
[2022-11-29 21:56] LABS: INR 1.14; PROTHROMBIN TIME 14.8 SECONDS (12.5-14.5)
[2022-11-29 22:02] LABS: LIPASE 37 U/L (12-53)
[2022-11-29 22:03] LABS: ALBUMIN 3.8 G/DL (3.2-5.2); ALKALINE PHOSPHATASE 78 U/L (46-116); ALT/SGPT 36 U/L (7.0-40); AST/SGOT 33 U/L (<34); BILIRUBIN,DIRECT 0.7 MG/DL (<0.4); BILIRUBIN,TOTAL 1.9 MG/DL (0.3-1.2); BLOOD UREA NITROGEN 17 MG/DL (9-23); CALCIUM LEVEL 9.4 MG/DL (8.5-10.1); CARBON DIOXIDE LEVEL 19 MMOL/L (20-31); CHLORIDE LEVEL 98 MMOL/L (98-107); CREATININE FOR GFR 1.63 MG/DL (0.70-1.30); GLOMERULAR FILTRATION RATE 48.5 (>60); GLUCOSE, FASTING 205 MG/DL (60-100); POTASSIUM SERUM 4.4 MMOL/L (3.5-5.1); SODIUM LEVEL 134 MMOL/L (136-145)
[2022-11-29 22:10] LABS: CPK CREATINE PHOSPHOKINASE 96 U/L (46-171); MB/CK RELATIVE INDEX 1.04 (< OR =4)
[2022-11-29] MEDS ORDERED: FUROSEMIDE 40MG/4ML VIAL IV ONE (22:15)
[2022-11-29] MEDS ORDERED: IPRATROPIUM 0.02% SOLN 0.5MG 2.5ML NEB NEB ONE ×2 (22:15→22:55)
[2022-11-29] MEDS ORDERED: ISOVUE-370 76% 100ML VIAL As Ordered ONE (22:24)
[2022-11-29] MEDS ORDERED: OXAZEPAM 15MG CAP PO ONE (22:50)
[2022-11-29] MEDS ORDERED: ALBUTEROL SULFATE 2.5MG/0.5ML INH NEB SOLN NEB ONE ×2 (22:55→23:00)
[2022-11-29] MEDS ORDERED: PIPERACILLIN/TAZOBACTAM SOD 4.5 GM in D5W MINI-BAG PLUS 50 ML IV ONE (23:00)
[2022-11-29 23:39] LABS: CK-MB VALUE MASS 1.3 NG/ML (<3.6)
[2022-11-29 23:45] LABS: MB/CK RELATIVE INDEX 1.66 (< OR =4)
[2022-11-30] VITALS (11 sets, daily range): BP systolic 103–129; BP diastolic 53–86; O2SAT 91–96
[2022-11-30] MEDS ORDERED: CORL1.7T PO (01:27)
[2022-11-30] MEDS ORDERED: LEXA5TAB13 PO (01:27)
[2022-11-30] MEDS ORDERED: HOME MED LIST COMPLETE! XX SCH (01:30)
[2022-11-30] MEDS ORDERED: GLUCAGON INJ 1MG VIAL SC PRN (02:25)
[2022-11-30] MEDS ORDERED: ALBUTEROL SULFATE 2.5MG/0.5ML INH NEB SOLN NEB PRN (02:25)
[2022-11-30] MEDS ORDERED: NITROGLYCERIN 0.4MG SUBL TABLET SL PRN (02:25)
[2022-11-30] MEDS ORDERED: DEXTROSE 50% 50ML SYRINGE IV PRN (02:25)
[2022-11-30] MEDS ORDERED: GLUCOSE 4GM CHEW TABLET PO PRN (02:25)
[2022-11-30] MEDS ORDERED: ACETAMINOPHEN TAB 650MG DOSE (2X325MG) PO PRN (02:25)
[2022-11-30] MEDS ORDERED: THIAMINE 200MG 2ML VIAL IM ONE (03:00)
[2022-11-30] MEDS ORDERED: FUROSEMIDE 40MG/4ML VIAL IV SCH (04:00)
[2022-11-30] MEDS ORDERED: DOXYCYCLINE HYCLATE 100 MG in D5W MINI-BAG PLUS 100 ML IV SCH (04:00)
[2022-11-30] MEDS: PIPERACILLIN/TAZOBACTAM SOD 4.5 GM in D5W MINI-BAG PLUS 50 ML IV SCH ×4 (05:20→22:15)
[2022-11-30] MEDS ORDERED: INSULIN LISPRO (NovoLOG) PER UNIT SC SCH (06:00)
[2022-11-30] MEDS ORDERED: LORazepam 2 MG TAB PO PRN (06:10)
[2022-11-30 06:33] LABS: CALCIUM LEVEL 8.5 MG/DL (8.5-10.1); CREATININE FOR GFR 1.61 MG/DL (0.70-1.30); GLOMERULAR FILTRATION RATE 49.2 (>60); MAGNESIUM LEVEL 1.2 MG/DL (1.8-2.4); POTASSIUM SERUM 3.4 MMOL/L (3.5-5.1)
[2022-11-30] MEDS: ALBUTEROL SULFATE 2.5MG/0.5ML INH NEB SOLN NEB SCH ×3 (07:11→19:41)
[2022-11-30] MEDS ORDERED: POTASSIUM CHLORIDE 10MEQ SR TABLET PO ONE (08:00)
[2022-11-30 08:03] LABS: BASO % 0.1 % (0.0-1.0); HEMOGLOBIN 12.7 g/dl (13.5-17.5); LYMPH # 0.6 10^3/uL (1.5-5.0); LYMPH % 7.9 % (24.0-44.0); MEAN CORPUSCULAR HEMOGLOBIN 33.5 pg (27.0-33.0); MEAN CORPUSCULAR HGB CONC 34.3 g/dl (32.0-36.5); MEAN CORPUSCULAR VOLUME 97.6 fl (80.0-96.0); MONO # 0.9 10^3/uL (0.0-0.8); MONO % 12.3 % (2.0-8.0); NEUTROPHILS # 5.9 10^3/uL (1.5-8.5); PLATELET COUNT, AUTOMATED 138 10^3/uL (150-450); RED BLOOD COUNT 3.79 10^6/uL (4.30-6.10); WHITE BLOOD COUNT 7.5 10^3/uL (4.0-10.0)
[2022-11-30] MEDS: MAG SULF 1GM/100ML (MAG RUN) 1 GM in IV 1 EA IV SCH ×4 (08:08→12:54)
[2022-11-30] MEDS: CARVedilol 12.5 MG TAB PO SCH ×2 (08:16→20:32)
[2022-11-30] MEDS: PANTOPRAZOLE 40MG TAB (PROTONIX) PO SCH (08:16)
[2022-11-30] MEDS: APIXABAN 5 MG TAB (ELIQUIS) PO SCH ×2 (08:17→20:32)
[2022-11-30] MEDS: ESCITALOPRAM OXALATE 5MG TABLET (LEXAPRO) PO SCH (08:17)
[2022-11-30] MEDS: SPIRONOLACTONE 25 MG TAB PO SCH (08:17)
[2022-11-30] MEDS: THIAMINE 100 MG TAB PO SCH ×2 (08:17→20:32)
[2022-11-30] MEDS: ENTRESTO 97-103MG TABLET (SACUBITRIL/VALSARTAN) PO SCH ×2 (08:17→20:32)
[2022-11-30] MEDS: FOLIC ACID 1MG TAB PO SCH (08:17)
[2022-11-30] MEDS: MULTIVITAMINS/MINERALS THERAP 1 TAB PO SCH (08:18)
[2022-11-30] MEDS ORDERED: DOCUSATE SODIUM 100MG CAPSULE PO SCH (09:00)
[2022-11-30 09:25] LABS: HEMOGLOBIN A1c 5.3 % (4.0-6.0)
[2022-11-30] MEDS: METOPROLOL TART 25 MG TABLET PO SCH ×2 (12:12→20:33)
[2022-11-30] MEDS: FUROSEMIDE 100MG/10ML VIAL IV SCH (15:23)
[2022-11-30] MEDS: PERCOCET 5MG/325MG TAB PO PRN (16:21)
[2022-11-30] MEDS: DOXYCYCLINE HYCLATE 100MG TABLET PO SCH (18:23)
[2022-12-01] VITALS (12 sets, daily range): BP systolic 99–138; BP diastolic 67–83; O2SAT 89–95
[2022-12-01] MEDS: PERCOCET 5MG/325MG TAB PO PRN ×2 (00:15→11:53)
[2022-12-01] MEDS: ALBUTEROL SULFATE 2.5MG/0.5ML INH NEB SOLN NEB SCH ×4 (02:35→20:01)
[2022-12-01] MEDS: FUROSEMIDE 100MG/10ML VIAL IV SCH (03:18)
[2022-12-01] MEDS: PIPERACILLIN/TAZOBACTAM SOD 4.5 GM in D5W MINI-BAG PLUS 50 ML IV SCH (04:07)
[2022-12-01] MEDS: DOXYCYCLINE HYCLATE 100MG TABLET PO SCH ×2 (05:56→17:52)
[2022-12-01 06:14] LABS: BASO % 0.3 % (0.0-1.0); EOS # 0.1 10^3/uL (0.0-0.5); EOS % 0.7 % (0.0-3.0); HEMATOCRIT 41.2 % (42.0-52.0); HEMOGLOBIN 14.6 g/dl (13.5-17.5); LYMPH % 13.9 % (24.0-44.0); MEAN CORPUSCULAR HEMOGLOBIN 33.9 pg (27.0-33.0); MEAN CORPUSCULAR HGB CONC 35.4 g/dl (32.0-36.5); MEAN CORPUSCULAR VOLUME 95.6 fl (80.0-96.0); MONO % 14.3 % (2.0-8.0); NEUTROPHILS # 4.9 10^3/uL (1.5-8.5); NEUTROPHILS % 70.4 % (36.0-66.0); PLATELET COUNT, AUTOMATED 157 10^3/uL (150-450); RED BLOOD COUNT 4.31 10^6/uL (4.30-6.10); WHITE BLOOD COUNT 6.9 10^3/uL (4.0-10.0)
[2022-12-01 06:55] LABS: ALBUMIN 3.4 G/DL (3.2-5.2); ALKALINE PHOSPHATASE 58 U/L (46-116); ALT/SGPT 30 U/L (7.0-40); AST/SGOT 29 U/L (<34); BILIRUBIN,TOTAL 1.3 MG/DL (0.3-1.2); BLOOD UREA NITROGEN 21 MG/DL (9-23); CALCIUM LEVEL 8.9 MG/DL (8.5-10.1); CARBON DIOXIDE LEVEL 32 MMOL/L (20-31); CHLORIDE LEVEL 96 MMOL/L (98-107); CREATININE FOR GFR 1.34 MG/DL (0.70-1.30); GLOMERULAR FILTRATION RATE > 60.0 (>60); GLUCOSE, FASTING 104 MG/DL (60-100); MAGNESIUM LEVEL 1.4 MG/DL (1.8-2.4); POTASSIUM SERUM 2.8 MMOL/L (3.5-5.1); SODIUM LEVEL 137 MMOL/L (136-145); TOTAL PROTEIN 6.6 G/DL (5.7-8.2)
[2022-12-01] MEDS ORDERED: POTASSIUM CHLORIDE 10MEQ SR TABLET PO ONE ×4 (07:00→21:15)
[2022-12-01] MEDS ORDERED: MIRALAX *UNIT DOSE* 17GM PACKET PO PRN (07:05)
[2022-12-01] MEDS: MAG SULF 1GM/100ML (MAG RUN) 1 GM in IV 1 EA IV SCH ×4 (07:38→11:00)
[2022-12-01] MEDS: ESCITALOPRAM OXALATE 5MG TABLET (LEXAPRO) PO SCH (08:30)
[2022-12-01] MEDS: MULTIVITAMINS/MINERALS THERAP 1 TAB PO SCH (08:30)
[2022-12-01] MEDS: MOM 30ML SUSPENSION UDC PO SCH (08:30)
[2022-12-01] MEDS: APIXABAN 5 MG TAB (ELIQUIS) PO SCH ×2 (08:31→22:05)
[2022-12-01] MEDS: THIAMINE 100 MG TAB PO SCH ×2 (08:31→22:05)
[2022-12-01] MEDS: PANTOPRAZOLE 40MG TAB (PROTONIX) PO SCH (08:31)
[2022-12-01] MEDS: FOLIC ACID 1MG TAB PO SCH (08:31)
[2022-12-01] MEDS: SPIRONOLACTONE 25 MG TAB PO SCH (08:31)
[2022-12-01] MEDS: SENOKOT S TAB PO SCH ×2 (08:31→22:05)
[2022-12-01] MEDS: CARVedilol 12.5 MG TAB PO SCH ×2 (08:32→22:04)
[2022-12-01] MEDS: CEFDINIR 300 MG CAP (OMNICEF) PO SCH ×2 (10:26→22:05)
[2022-12-01] MEDS: KCL 10MEQ/100ML SWI (KRUN) 10 MEQ in IV 1 EA IV SCH ×2 (11:47→13:00)
[2022-12-01 12:58] LABS: MAGNESIUM LEVEL 2.6 MG/DL (1.8-2.4)
[2022-12-01] MEDS ORDERED: MAG SULF 1GM/100ML (MAG RUN) 1 GM in IV 1 EA IV ONE (15:00)
[2022-12-02] VITALS (21 sets, daily range): BP systolic 87–115; BP diastolic 50–87; O2SAT 89–99
[2022-12-02] MEDS: PERCOCET 5MG/325MG TAB PO PRN (01:37)
[2022-12-02] MEDS: ALBUTEROL SULFATE 2.5MG/0.5ML INH NEB SOLN NEB SCH ×3 (02:47→13:23)
[2022-12-02] MEDS: DOXYCYCLINE HYCLATE 100MG TABLET PO SCH (05:32)
[2022-12-02 05:56] LABS: BASO % 0.1 % (0.0-1.0); EOS % 0.5 % (0.0-3.0); HEMATOCRIT 43.4 % (42.0-52.0); LYMPH # 1.2 10^3/uL (1.5-5.0); LYMPH % 14.7 % (24.0-44.0); MEAN CORPUSCULAR HEMOGLOBIN 33.3 pg (27.0-33.0); MEAN CORPUSCULAR HGB CONC 34.6 g/dl (32.0-36.5); MEAN CORPUSCULAR VOLUME 96.4 fl (80.0-96.0); MONO # 1.4 10^3/uL (0.0-0.8); MONO % 17.6 % (2.0-8.0); NEUTROPHILS # 5.3 10^3/uL (1.5-8.5); NEUTROPHILS % 66.8 % (36.0-66.0); PLATELET COUNT, AUTOMATED 175 10^3/uL (150-450)
[2022-12-02 06:28] LABS: ALBUMIN 3.3 G/DL (3.2-5.2); ALKALINE PHOSPHATASE 55 U/L (46-116); ALT/SGPT 23 U/L (7.0-40); AST/SGOT 24 U/L (<34); BILIRUBIN,TOTAL 1.1 MG/DL (0.3-1.2); BLOOD UREA NITROGEN 21 MG/DL (9-23); CALCIUM LEVEL 8.5 MG/DL (8.5-10.1); CARBON DIOXIDE LEVEL 30 MMOL/L (20-31); CHLORIDE LEVEL 100 MMOL/L (98-107); CREATININE FOR GFR 1.05 MG/DL (0.70-1.30); GLOMERULAR FILTRATION RATE > 60.0 (>60); GLUCOSE, FASTING 89 MG/DL (60-100); MAGNESIUM LEVEL 1.8 MG/DL (1.8-2.4); POTASSIUM SERUM 3.5 MMOL/L (3.5-5.1); SODIUM LEVEL 137 MMOL/L (136-145); TOTAL PROTEIN 6.3 G/DL (5.7-8.2)
[2022-12-02] MEDS: SENOKOT S TAB PO SCH (08:47)
[2022-12-02] MEDS: THIAMINE 100 MG TAB PO SCH (08:47)
[2022-12-02] MEDS: APIXABAN 5 MG TAB (ELIQUIS) PO SCH (08:47)
[2022-12-02] MEDS: SPIRONOLACTONE 25 MG TAB PO SCH (08:47)
[2022-12-02] MEDS: MULTIVITAMINS/MINERALS THERAP 1 TAB PO SCH (08:47)
[2022-12-02] MEDS: FOLIC ACID 1MG TAB PO SCH (08:47)
[2022-12-02] MEDS: PANTOPRAZOLE 40MG TAB (PROTONIX) PO SCH (08:47)
[2022-12-02] MEDS: CARVedilol 12.5 MG TAB PO SCH (08:48)
[2022-12-02] MEDS: CEFDINIR 300 MG CAP (OMNICEF) PO SCH (08:48)
[2022-12-02] MEDS: MOM 30ML SUSPENSION UDC PO SCH (08:48)
[2022-12-02] MEDS: ESCITALOPRAM OXALATE 5MG TABLET (LEXAPRO) PO SCH (08:48)
[2022-12-02] MEDS ORDERED: FUROSEMIDE 20 MG TAB PO SCH (09:00)
[2022-12-02] MEDS ORDERED: THIA100TA PO (11:52)
[2022-12-02] MEDS ORDERED: VITMTA PO (11:52)
[2022-12-02] MEDS ORDERED: POTA-151 PO (11:52)
[2022-12-02] MEDS ORDERED: FOLI1TAB11 PO (11:52)
[2022-12-02] MEDS ORDERED: CEFD300CAP PO (11:52)
[2022-12-02] MEDS ORDERED: FURO20TA2 PO (11:52)
[2022-12-02] MEDS ORDERED: DOXY100T PO (11:52)
[2022-12-02] MEDS ORDERED: MAGN400T2 PO (11:53)
[2022-12-02 13:07] LABS: BODY FLUID CULTURE Not indicated. (.); LEGIONELLA ANTIGEN URINE Negative (Negative); ORGANISM ID Not indicated. (.); SPECIMEN SOURCE Urine (.); URINE STREP PNEUMONIAE ANTIGEN Negative (Negative)
== END 2022-12-02 15:10 | disposition home health service (06) | DRG 194 ==
LOC: EDBD 20:56 → M ED 20:56 → M ED INP 23:59 → M PCU 11-30 01:19
PROVIDERS: ADMIT Internal Medicine; ATTEND Internal Medicine
PROC: B246ZZZ Ultrasonography of Right and Left Heart (ICD-10-PCS; principal; 2022-11-30)
DX: I50.23 Acute on chronic systolic (congestive) heart failure (principal); J96.01 Acute respiratory failure with hypoxia; E87.20 Acidosis, unspecified; N17.9 Acute kidney failure, unspecified; J18.9 Pneumonia, unspecified organism; J45.901 Unspecified asthma with (acute) exacerbation; E83.42 Hypomagnesemia; I42.6 Alcoholic cardiomyopathy; D64.9 Anemia, unspecified; F32.A Depression, unspecified; Z66 Do not resuscitate; F17.210 Nicotine dependence, cigarettes, uncomplicated; I47.1 Supraventricular tachycardia; R94.31 Abnormal electrocardiogram [ECG] [EKG]; E87.6 Hypokalemia; K21.9 Gastro-esophageal reflux disease without esophagitis; R73.9 Hyperglycemia, unspecified; F10.139 Alcohol abuse with withdrawal, unspecified; Z86.711 Personal history of pulmonary embolism; Z86.16 Personal history of COVID-19; Z91.198 Patient's noncompliance with other medical treatment and regimen for other reason; Z95.810 Presence of automatic (implantable) cardiac defibrillator; Z95.3 Presence of xenogenic heart valve

== ENCOUNTER 2023-03-07 14:52 | Emergency (ER) | payer OTHER ==
[~2023-03-07] VITALS: Ht 167.6 cm; Wt 79.4 kg
[~2023-03-07 14:52] MED LIST changes: +CEFD300CAP PO; +CORL1.7T PO; +DOXY100T PO; +FURO20TA2 PO; +LEXA5TAB13 PO; +MAGN400T2 PO; +POTA-151 PO
[2023-03-07] MEDS ORDERED: ENTR1TAB (15:10)
[2023-03-07 15:41] LABS: BASO % 0.1 % (0.0-1.0); EOS % 0.1 % (0.0-3.0); HEMATOCRIT 29.7 % (42.0-52.0); LYMPH # 0.7 10^3/uL (1.5-5.0); LYMPH % 8.1 % (24.0-44.0); MEAN CORPUSCULAR HEMOGLOBIN 29.9 pg (27.0-33.0); MEAN CORPUSCULAR HGB CONC 33.7 g/dl (32.0-36.5); MEAN CORPUSCULAR VOLUME 88.7 fl (80.0-96.0); MONO # 0.6 10^3/uL (0.0-0.8); MONO % 7.2 % (2.0-8.0); NEUTROPHILS # 7.2 10^3/uL (1.5-8.5); NEUTROPHILS % 83.8 % (36.0-66.0); PLATELET COUNT, AUTOMATED 130 10^3/uL (150-450); RED BLOOD COUNT 3.35 10^6/uL (4.30-6.10); WHITE BLOOD COUNT 8.6 10^3/uL (4.0-10.0)
[2023-03-07] MEDS ORDERED: NS 500 ML IV ONE ×2 (15:45→16:45)
[2023-03-07 15:50] LABS: INR 1.58; PROTHROMBIN TIME 19.2 SECONDS (12.5-14.5)
[2023-03-07 15:51] LABS: PARTIAL THROMBOPLASTIN TIME 37.4 SECONDS (24.8-34.2)
[2023-03-07 15:57] LABS: CPK CREATINE PHOSPHOKINASE < 15 U/L (46-171)
[2023-03-07 15:58] LABS: CK-MB VALUE MASS < 1.0 NG/ML (<3.6)
[2023-03-07 16:02] LABS: LIPASE 30 U/L (12-53)
[2023-03-07 16:04] LABS: ALBUMIN 2.2 G/DL (3.2-5.2); ALKALINE PHOSPHATASE 84 U/L (46-116); ALT/SGPT 34 U/L (7.0-40); AST/SGOT 30 U/L (<34); BILIRUBIN,DIRECT 0.7 MG/DL (<0.4); BILIRUBIN,TOTAL 1.4 MG/DL (0.3-1.2); BLOOD UREA NITROGEN 11 MG/DL (9-23); CARBON DIOXIDE LEVEL 24 MMOL/L (20-31); CHLORIDE LEVEL 95 MMOL/L (98-107); CREATININE FOR GFR 0.71 MG/DL (0.70-1.30); GLOMERULAR FILTRATION RATE > 60.0 (>60); GLUCOSE, FASTING 107 MG/DL (60-100); POTASSIUM SERUM 3.8 MMOL/L (3.5-5.1); RSV AMPLIFICATION NEGATIVE (NEGATIVE); SODIUM LEVEL 124 MMOL/L (136-145); TOTAL PROTEIN 5.6 G/DL (5.7-8.2)
[2023-03-07] MEDS ORDERED: ISOVUE-370 76% 100ML VIAL As Ordered ONE (16:16)
[2023-03-07 17:36] LABS: CK-MB VALUE MASS < 1.0 NG/ML (<3.6); CPK CREATINE PHOSPHOKINASE 31 U/L (46-171); MB/CK RELATIVE INDEX 3.22 (< OR =4)
[2023-03-07] MEDS ORDERED: CEFEPIME HCL 2 GM in D5W MINI-BAG PLUS 50 ML IV ONE (17:40)
[2023-03-07] MEDS ORDERED: VANCOMYCIN HCL 1,000 MG, VIAL MATE ADAPTER 1 EACH in D5W 250 ML IV ONE (17:45)
[2023-03-07] MEDS ORDERED: NOREPINEPHRINE 4MG IN D5 250ML 4 MG in IV 1 EA IV SCH ×2 (18:30)
[2023-03-07 19:36] VITALS: TEMP 99
[2023-03-07 20:20] VITALS: BP 95/56; O2SAT 97
== END 2023-03-07 20:29 | disposition short-term general hospital (02) ==
LOC: M ED 14:52
DX: I45.81 Long QT syndrome (principal); E87.1 Hypo-osmolality and hyponatremia; I95.9 Hypotension, unspecified; M46.20 Osteomyelitis of vertebra, site unspecified; K56.609 Unspecified intestinal obstruction, unspecified as to partial versus complete obstruction; I11.9 Hypertensive heart disease without heart failure; I50.20 Unspecified systolic (congestive) heart failure; M10.9 Gout, unspecified; Z86.73 Personal history of transient ischemic attack (TIA), and cerebral infarction without residual deficits; Z86.711 Personal history of pulmonary embolism; Z95.810 Presence of automatic (implantable) cardiac defibrillator; F17.200 Nicotine dependence, unspecified, uncomplicated; Z79.899 Other long term (current) drug therapy; Z79.01 Long term (current) use of anticoagulants
CPT/HCPCS: 71045; 74177; 80048; 80076; 82550; 82553; 83605; 83690; 83880; 85025; 85610; 85730; 87040; 87077; 87186; 87631; 93005; 93041; 93970; 94760; 96365; 96366; 96367; 99285; J0692; Q9967

== ENCOUNTER → 2023-04-03 | Outpatient (REF) | payer OTHER ==
[~2023-04-03] MED LIST changes: +ENTR1TAB
[2023-04-03 15:40] LABS: BASO % 0.3 % (0.0-1.0); EOS # 0.1 10^3/uL (0.0-0.5); EOS % 0.5 % (0.0-3.0); HEMATOCRIT 31.5 % (42.0-52.0); HEMOGLOBIN 9.9 g/dl (13.5-17.5); LYMPH # 1.4 10^3/uL (1.5-5.0); LYMPH % 11.2 % (24.0-44.0); MEAN CORPUSCULAR HEMOGLOBIN 28.7 pg (27.0-33.0); MEAN CORPUSCULAR HGB CONC 31.4 g/dl (32.0-36.5); MEAN CORPUSCULAR VOLUME 91.3 fl (80.0-96.0); MONO # 1.5 10^3/uL (0.0-0.8); MONO % 12.3 % (2.0-8.0); NEUTROPHILS # 9.1 10^3/uL (1.5-8.5); PLATELET COUNT, AUTOMATED 300 10^3/uL (150-450); RED BLOOD COUNT 3.45 10^6/uL (4.30-6.10); WHITE BLOOD COUNT 12.1 10^3/uL (4.0-10.0)
[2023-04-03 15:53] LABS: ERYTHROCYTE SEDIMENTATION RATE 43 mm/hr (0-15)
[2023-04-03 15:57] LABS: ALBUMIN 2.7 G/DL (3.2-5.2); ALKALINE PHOSPHATASE 88 U/L (46-116); ALT/SGPT 14 U/L (7.0-40); AST/SGOT 16 U/L (<34); BILIRUBIN,TOTAL 0.4 MG/DL (0.3-1.2); BLOOD UREA NITROGEN 14 MG/DL (9-23); CARBON DIOXIDE LEVEL 23 MMOL/L (20-31); CHLORIDE LEVEL 104 MMOL/L (98-107); CREATININE FOR GFR 0.77 MG/DL (0.70-1.30); GLOMERULAR FILTRATION RATE > 60.0 (>60); GLUCOSE, FASTING 121 MG/DL (60-100); POTASSIUM SERUM 3.9 MMOL/L (3.5-5.1); SODIUM LEVEL 137 MMOL/L (136-145); TOTAL PROTEIN 6.3 G/DL (5.7-8.2)
== END ==
LOC: M LAB REF 15:00
PROVIDERS: ATTEND Physician Assistant Surgical
DX: T82.7XXA Infection and inflammatory reaction due to other cardiac and vascular devices, implants and grafts, initial encounter (principal)

== ENCOUNTER → 2023-04-10 | Outpatient (REF) | payer OTHER ==
[2023-04-10 14:05] LABS: BASO % 0.2 % (0.0-1.0); EOS % 0.3 % (0.0-3.0); HEMATOCRIT 28.5 % (42.0-52.0); HEMOGLOBIN 9.4 g/dl (13.5-17.5); LYMPH # 0.7 10^3/uL (1.5-5.0); LYMPH % 7.5 % (24.0-44.0); MEAN CORPUSCULAR HEMOGLOBIN 29.4 pg (27.0-33.0); MEAN CORPUSCULAR VOLUME 89.1 fl (80.0-96.0); MONO # 0.9 10^3/uL (0.0-0.8); MONO % 10.6 % (2.0-8.0); NEUTROPHILS # 7.2 10^3/uL (1.5-8.5); NEUTROPHILS % 80.7 % (36.0-66.0); PLATELET COUNT, AUTOMATED 181 10^3/uL (150-450); WHITE BLOOD COUNT 8.9 10^3/uL (4.0-10.0)
[2023-04-10 14:29] LABS: ERYTHROCYTE SEDIMENTATION RATE 26 mm/hr (0-15)
[2023-04-10 14:36] LABS: ALBUMIN 2.4 G/DL (3.2-5.2); ALKALINE PHOSPHATASE 133 U/L (46-116); ALT/SGPT 12 U/L (7.0-40); AST/SGOT 13 U/L (<34); BILIRUBIN,TOTAL 0.6 MG/DL (0.3-1.2); BLOOD UREA NITROGEN 23 MG/DL (9-23); CALCIUM LEVEL 8.5 MG/DL (8.5-10.1); CARBON DIOXIDE LEVEL 22 MMOL/L (20-31); CHLORIDE LEVEL 98 MMOL/L (98-107); CREATININE FOR GFR 0.93 MG/DL (0.70-1.30); GLOMERULAR FILTRATION RATE > 60.0 (>60); GLUCOSE, FASTING 96 MG/DL (60-100); POTASSIUM SERUM 3.8 MMOL/L (3.5-5.1); SODIUM LEVEL 130 MMOL/L (136-145); TOTAL PROTEIN 5.8 G/DL (5.7-8.2)
== END ==
LOC: M LAB REF 13:31
PROVIDERS: ATTEND Physician Assistant Surgical
DX: T82.7XXA Infection and inflammatory reaction due to other cardiac and vascular devices, implants and grafts, initial encounter (principal); Y93.9 Activity, unspecified; Y92.9 Unspecified place or not applicable

== ENCOUNTER → 2023-04-17 | Outpatient (REF) | payer OTHER ==
[~2023-04-17] MED LIST changes: +B-1100TA2 PO; +DULO1CAP5 PO; -ENTR1TAB; +ENTR1TAB PO; +OXYC-517 PO
[2023-04-17 16:00] LABS: BASO % 0.3 % (0.0-1.0); EOS % 0.4 % (0.0-3.0); HEMATOCRIT 36.3 % (42.0-52.0); HEMOGLOBIN 11.4 g/dl (13.5-17.5); LYMPH # 0.8 10^3/uL (1.5-5.0); LYMPH % 12.5 % (24.0-44.0); MEAN CORPUSCULAR HEMOGLOBIN 28.7 pg (27.0-33.0); MEAN CORPUSCULAR HGB CONC 31.4 g/dl (32.0-36.5); MEAN CORPUSCULAR VOLUME 91.4 fl (80.0-96.0); MONO # 0.6 10^3/uL (0.0-0.8); MONO % 8.9 % (2.0-8.0); NEUTROPHILS # 5.2 10^3/uL (1.5-8.5); NEUTROPHILS % 77.3 % (36.0-66.0); PLATELET COUNT, AUTOMATED 230 10^3/uL (150-450); RED BLOOD COUNT 3.97 10^6/uL (4.30-6.10); WHITE BLOOD COUNT 6.7 10^3/uL (4.0-10.0)
[2023-04-17 16:15] LABS: ALBUMIN 2.7 G/DL (3.2-5.2); ALKALINE PHOSPHATASE 124 U/L (46-116); ALT/SGPT 17 U/L (7.0-40); AST/SGOT 25 U/L (<34); BILIRUBIN,TOTAL 0.5 MG/DL (0.3-1.2); BLOOD UREA NITROGEN 14 MG/DL (9-23); CALCIUM LEVEL 9.1 MG/DL (8.5-10.1); CARBON DIOXIDE LEVEL 23 MMOL/L (20-31); CHLORIDE LEVEL 102 MMOL/L (98-107); CREATININE FOR GFR 0.82 MG/DL (0.70-1.30); GLOMERULAR FILTRATION RATE > 60.0 (>60); GLUCOSE, FASTING 127 MG/DL (60-100); POTASSIUM SERUM 4.1 MMOL/L (3.5-5.1); SODIUM LEVEL 135 MMOL/L (136-145); TOTAL PROTEIN 6.3 G/DL (5.7-8.2)
[2023-04-17 17:26] LABS: ERYTHROCYTE SEDIMENTATION RATE 20 mm/hr (0-15)
== END ==
LOC: M LAB REF 15:26
PROVIDERS: ATTEND Physician Assistant Surgical
DX: T82.7XXA Infection and inflammatory reaction due to other cardiac and vascular devices, implants and grafts, initial encounter (principal); X58.XXXA Exposure to other specified factors, initial encounter

== ENCOUNTER 2023-04-21 08:21 | Inpatient (IN) | payer MEDICARE, OTHER ==
[~2023-04-21] VITALS: Ht 167.6 cm; Wt 87.0 kg
[~2023-04-21 08:21] MED LIST changes: -B-1100TA2 PO; -DULO1CAP5 PO; -OXYC-517 PO
[2023-04-21] MEDS ORDERED: POTASSIUM CHLORIDE 10MEQ SR TABLET PO SCH (09:00)
[2023-04-21] MEDS ORDERED: FOLIC ACID 1MG TAB PO SCH (09:00)
[2023-04-21] MEDS ORDERED: THIAMINE 100 MG TAB PO SCH (09:00)
[2023-04-21] MEDS ORDERED: FUROSEMIDE 40MG/4ML VIAL IV ONE (09:15)
[2023-04-21 09:45] LABS: BASO % 0.2 % (0.0-1.0); EOS % 0.1 % (0.0-3.0); HEMATOCRIT 34.8 % (42.0-52.0); LYMPH % 6.3 % (24.0-44.0); MEAN CORPUSCULAR HEMOGLOBIN 28.6 pg (27.0-33.0); MEAN CORPUSCULAR HGB CONC 31.6 g/dl (32.0-36.5); MEAN CORPUSCULAR VOLUME 90.6 fl (80.0-96.0); MONO # 1.5 10^3/uL (0.0-0.8); MONO % 9.3 % (2.0-8.0); NEUTROPHILS # 13.1 10^3/uL (1.5-8.5); NEUTROPHILS % 83.4 % (36.0-66.0); PLATELET COUNT, AUTOMATED 222 10^3/uL (150-450); RED BLOOD COUNT 3.84 10^6/uL (4.30-6.10); WHITE BLOOD COUNT 15.7 10^3/uL (4.0-10.0)
[2023-04-21 10:16] LABS: ALBUMIN 2.6 G/DL (3.2-5.2); ALKALINE PHOSPHATASE 115 U/L (46-116); ALT/SGPT < 9 U/L (7.0-40); AST/SGOT 9 U/L (<34); BILIRUBIN,DIRECT 0.5 MG/DL (<0.4); BILIRUBIN,TOTAL 0.9 MG/DL (0.3-1.2); BLOOD UREA NITROGEN 9 MG/DL (9-23); CALCIUM LEVEL 8.8 MG/DL (8.5-10.1); CARBON DIOXIDE LEVEL 24 MMOL/L (20-31); CHLORIDE LEVEL 101 MMOL/L (98-107); CREATININE FOR GFR 0.83 MG/DL (0.70-1.30); GLOMERULAR FILTRATION RATE > 60.0 (>60); GLUCOSE, FASTING 108 MG/DL (60-100); POTASSIUM SERUM 3.9 MMOL/L (3.5-5.1); SODIUM LEVEL 134 MMOL/L (136-145)
[2023-04-21] MEDS ORDERED: MED REC IN PROGRESS XX SCH (11:40)
[2023-04-21] MEDS ORDERED: DULO1CAP5 PO (11:42)
[2023-04-21] MEDS ORDERED: FURO20TA2 PO (11:42)
[2023-04-21] MEDS ORDERED: OXYC-517 PO (11:44)
[2023-04-21] MEDS ORDERED: PANT40TA29 PO (11:50)
[2023-04-21] MEDS ORDERED: HOME MED LIST COMPLETE! XX SCH (12:00)
[2023-04-21] MEDS ORDERED: VANCOMYCIN HCL 1,000 MG, VIAL MATE ADAPTER 1 EACH in D5W 250 ML IV SCH (12:05)
[2023-04-21 13:40] LABS: C REACTIVE PROTEIN QUANTITATIV 4.6 MG/DL (<1.0)
[2023-04-21] MEDS ORDERED: B-1100TA2 PO (13:42)
[2023-04-21] MEDS: PANTOPRAZOLE 40MG TAB (PROTONIX) PO SCH (14:08)
[2023-04-21] MEDS: APIXABAN 5 MG TAB (ELIQUIS) PO SCH ×2 (14:09→20:36)
[2023-04-21] MEDS: DULoxetine 30MG CAPSULE (CYMBALTA) PO SCH (14:09)
[2023-04-21] MEDS: cefTRIAXone SOD 2 GM in D5W MINI-BAG PLUS 50 ML IV SCH (14:10)
[2023-04-21 14:17] LABS: PROCALCITONIN 0.06 ng/ml
[2023-04-21] MEDS: FUROSEMIDE 40MG/4ML VIAL IV SCH ×2 (15:00→20:36)
[2023-04-21 16:00] VITALS: BP 130/82; TEMP 98.1; O2SAT 54
[2023-04-21] MEDS ORDERED: LORazepam 2 MG TAB PO PRN (16:55)
[2023-04-21] MEDS ORDERED: IPRATROPIUM 0.5MG/ALBUTEROL 2.5MG INH SOL UD 3ML (DUONEB) NEB PRN (18:25)
[2023-04-21] MEDS ORDERED: POTASSIUM CHLORIDE 10MEQ SR TABLET PO ONE (18:55)
[2023-04-21 19:41] LABS: IONIZED CALCIUM 4.5 MG/DL (4.5-5.3)
[2023-04-21 20:10] LABS: CK-MB VALUE MASS < 1.0 NG/ML (<3.6); CPK CREATINE PHOSPHOKINASE 16 U/L (46-171); MB/CK RELATIVE INDEX 6.25 (< OR =4)
[2023-04-21] MEDS: THIAMINE 100 MG TAB PO SCH (20:36)
[2023-04-21 20:41] VITALS: BP 120/90
[2023-04-21] MEDS: oxyCODONE 5MG TAB PO PRN (20:41)
[2023-04-21 20:46] VITALS: BP 120/90
[2023-04-21 21:43] LABS: MAGNESIUM LEVEL 1.1 MG/DL (1.8-2.4); POTASSIUM SERUM 3.4 MMOL/L (3.5-5.1)
[2023-04-21 22:59] VITALS: BP 132/78; TEMP 98; O2SAT 97
[2023-04-21] MEDS: MAG SULF 1GM/100ML (MAG RUN) 1 GM in IV 1 EA IV SCH (23:06)
[2023-04-21] MEDS: SODIUM CHLORIDE 0.9% INJ 10 ML SYR IV PRN (23:11)
[2023-04-21] MEDS ORDERED: METOPROLOL TART 25 MG TABLET PO ONE (23:15)
[2023-04-22] MEDS: MAG SULF 1GM/100ML (MAG RUN) 1 GM in IV 1 EA IV SCH ×5 (00:13→12:12)
[2023-04-22 00:39] LABS: CPK CREATINE PHOSPHOKINASE 15 U/L (46-171)
[2023-04-22 00:40] LABS: CK-MB VALUE MASS < 1.0 NG/ML (<3.6); MB/CK RELATIVE INDEX 6.66 (< OR =4)
[2023-04-22 03:06] VITALS: BP_SYST 109; BP_SYST 118; BP_DIAS 64; BP_DIAS 88; TEMP 97.2; O2SAT 96
[2023-04-22] MEDS: oxyCODONE 5MG TAB PO PRN (03:12)
[2023-04-22 03:24] VITALS: BP 118/88
[2023-04-22] MEDS: FUROSEMIDE 40MG/4ML VIAL IV SCH ×4 (03:29→21:40)
[2023-04-22] MEDS: SODIUM CHLORIDE 0.9% INJ 10 ML SYR IV PRN ×3 (03:40→21:48)
[2023-04-22 04:54] LABS: BASO # 0.1 10^3/uL (0.0-0.2); BASO % 0.4 % (0.0-1.0); EOS # 0.1 10^3/uL (0.0-0.5); EOS % 0.6 % (0.0-3.0); HEMATOCRIT 36.2 % (42.0-52.0); HEMOGLOBIN 11.7 g/dl (13.5-17.5); LYMPH # 1.2 10^3/uL (1.5-5.0); LYMPH % 8.6 % (24.0-44.0); MEAN CORPUSCULAR HEMOGLOBIN 28.8 pg (27.0-33.0); MEAN CORPUSCULAR HGB CONC 32.3 g/dl (32.0-36.5); MEAN CORPUSCULAR VOLUME 89.2 fl (80.0-96.0); MONO # 1.5 10^3/uL (0.0-0.8); MONO % 10.2 % (2.0-8.0); NEUTROPHILS # 11.4 10^3/uL (1.5-8.5); NEUTROPHILS % 79.6 % (36.0-66.0); PLATELET COUNT, AUTOMATED 186 10^3/uL (150-450); RED BLOOD COUNT 4.06 10^6/uL (4.30-6.10); WHITE BLOOD COUNT 14.3 10^3/uL (4.0-10.0)
[2023-04-22 05:14] LABS: BLOOD UREA NITROGEN 13 MG/DL (9-23); CALCIUM LEVEL 8.8 MG/DL (8.5-10.1); CARBON DIOXIDE LEVEL 23 MMOL/L (20-31); CHLORIDE LEVEL 99 MMOL/L (98-107); CREATININE FOR GFR 0.96 MG/DL (0.70-1.30); GLOMERULAR FILTRATION RATE > 60.0 (>60); GLUCOSE, FASTING 111 MG/DL (60-100); POTASSIUM SERUM 3.6 MMOL/L (3.5-5.1); SODIUM LEVEL 133 MMOL/L (136-145)
[2023-04-22] MEDS: SODIUM CHLORIDE 0.9% INJ 10 ML SYR IV SCH ×2 (06:40→18:22)
[2023-04-22 08:00] VITALS: BP 118/87; TEMP 98.1; O2SAT 94
[2023-04-22 08:58] LABS: CK-MB VALUE MASS < 1.0 NG/ML (<3.6)
[2023-04-22 08:59] LABS: CPK CREATINE PHOSPHOKINASE < 15 U/L (46-171)
[2023-04-22] MEDS: POTASSIUM CHLORIDE 10MEQ SR TABLET PO SCH ×2 (09:28→21:26)
[2023-04-22] MEDS: THIAMINE 100 MG TAB PO SCH ×2 (09:29→21:24)
[2023-04-22] MEDS: MAGNESIUM OXIDE 400MG TAB (MAG-OX) PO SCH ×2 (09:29→21:25)
[2023-04-22] MEDS: APIXABAN 5 MG TAB (ELIQUIS) PO SCH ×2 (09:29→21:25)
[2023-04-22] MEDS: PANTOPRAZOLE 40MG TAB (PROTONIX) PO SCH (09:29)
[2023-04-22] MEDS: DULoxetine 30MG CAPSULE (CYMBALTA) PO SCH (09:29)
[2023-04-22] MEDS: MULTIVITAMINS/MINERALS THERAP 1 TAB PO SCH (09:29)
[2023-04-22] MEDS: FOLIC ACID 1MG TAB PO SCH (09:29)
[2023-04-22] MEDS ORDERED: CALCIUM GLUCONATE 1,000 MG in D5W MINI-BAG PLUS 100 ML IV ONE (10:00)
[2023-04-22] MEDS: oxyCODONE 5MG TAB PO SCH ×2 (11:01→18:21)
[2023-04-22 13:37] LABS: IONIZED CALCIUM 4.6 MG/DL (4.5-5.3)
[2023-04-22 14:04] LABS: POTASSIUM SERUM 3.3 MMOL/L (3.5-5.1)
[2023-04-22 14:08] VITALS: BP 124/80
[2023-04-22] MEDS: cefTRIAXone SOD 2 GM in D5W MINI-BAG PLUS 50 ML IV SCH (14:09)
[2023-04-22 16:00] VITALS: BP 116/80; TEMP 97.5; O2SAT 98
[2023-04-22 17:08] LABS: CK-MB VALUE MASS < 1.0 NG/ML (<3.6)
[2023-04-22 17:09] LABS: CPK CREATINE PHOSPHOKINASE 17 U/L (46-171); MB/CK RELATIVE INDEX 5.88 (< OR =4)
[2023-04-22 20:05] LABS: IONIZED CALCIUM 4.4 MG/DL (4.5-5.3)
[2023-04-22 20:33] LABS: MAGNESIUM LEVEL 1.7 MG/DL (1.8-2.4); POTASSIUM SERUM 3.3 MMOL/L (3.5-5.1)
[2023-04-22 21:31] VITALS: BP 118/78; TEMP 98.5; O2SAT 97
[2023-04-23] MEDS: oxyCODONE 5MG TAB PO SCH ×5 (00:28→23:46)
[2023-04-23] MEDS: FUROSEMIDE 40MG/4ML VIAL IV SCH ×3 (03:03→15:34)
[2023-04-23] MEDS: SODIUM CHLORIDE 0.9% INJ 10 ML SYR IV PRN ×2 (03:04→22:04)
[2023-04-23 04:00] VITALS: BP 112/79; TEMP 97.6; O2SAT 97
[2023-04-23] MEDS: SODIUM CHLORIDE 0.9% INJ 10 ML SYR IV SCH ×2 (05:17→17:44)
[2023-04-23 06:10] LABS: BASO % 0.3 % (0.0-1.0); EOS # 0.1 10^3/uL (0.0-0.5); EOS % 0.9 % (0.0-3.0); HEMATOCRIT 32.5 % (42.0-52.0); HEMOGLOBIN 10.4 g/dl (13.5-17.5); LYMPH # 1.1 10^3/uL (1.5-5.0); LYMPH % 9.8 % (24.0-44.0); MEAN CORPUSCULAR HEMOGLOBIN 28.5 pg (27.0-33.0); MONO # 1.1 10^3/uL (0.0-0.8); MONO % 9.7 % (2.0-8.0); NEUTROPHILS # 9.1 10^3/uL (1.5-8.5); NEUTROPHILS % 78.8 % (36.0-66.0); PLATELET COUNT, AUTOMATED 184 10^3/uL (150-450); RED BLOOD COUNT 3.65 10^6/uL (4.30-6.10); WHITE BLOOD COUNT 11.6 10^3/uL (4.0-10.0)
[2023-04-23 06:17] LABS: BLOOD UREA NITROGEN 15 MG/DL (9-23); CALCIUM LEVEL 8.6 MG/DL (8.5-10.1); CARBON DIOXIDE LEVEL 31 MMOL/L (20-31); CHLORIDE LEVEL 98 MMOL/L (98-107); CREATININE FOR GFR 0.93 MG/DL (0.70-1.30); GLOMERULAR FILTRATION RATE > 60.0 (>60); GLUCOSE, FASTING 100 MG/DL (60-100); POTASSIUM SERUM 3.2 MMOL/L (3.5-5.1); SODIUM LEVEL 138 MMOL/L (136-145)
[2023-04-23] MEDS: DULoxetine 30MG CAPSULE (CYMBALTA) PO SCH (07:59)
[2023-04-23] MEDS: PANTOPRAZOLE 40MG TAB (PROTONIX) PO SCH (07:59)
[2023-04-23] MEDS: DOCUSATE SODIUM 100MG CAPSULE PO SCH (07:59)
[2023-04-23] MEDS: POTASSIUM CHLORIDE 10MEQ SR TABLET PO SCH ×3 (07:59→21:29)
[2023-04-23 08:00] VITALS: BP 128/78; TEMP 97.7; O2SAT 98
[2023-04-23] MEDS: APIXABAN 5 MG TAB (ELIQUIS) PO SCH ×2 (08:00→21:30)
[2023-04-23] MEDS: THIAMINE 100 MG TAB PO SCH ×2 (08:00→21:30)
[2023-04-23] MEDS: MAGNESIUM OXIDE 400MG TAB (MAG-OX) PO SCH ×3 (08:00→21:29)
[2023-04-23] MEDS: MULTIVITAMINS/MINERALS THERAP 1 TAB PO SCH (08:00)
[2023-04-23] MEDS: FOLIC ACID 1MG TAB PO SCH (08:00)
[2023-04-23 08:06] VITALS: BP 128/78
[2023-04-23] MEDS: DAPAGLIFLOZIN PROPANEDIOL 10MG TABLET (FARXIGA) PO SCH ×2 (09:00→10:51)
[2023-04-23] MEDS ORDERED: MAG SULF 1GM/100ML (MAG RUN) 1 GM in IV 1 EA IV ONE ×3 (09:30→23:00)
[2023-04-23] MEDS ORDERED: CALCIUM GLUCONATE 1,000 MG in D5W MINI-BAG PLUS 100 ML IV ONE ×3 (09:30→23:00)
[2023-04-23 09:35] LABS: MAGNESIUM LEVEL 1.4 MG/DL (1.8-2.4)
[2023-04-23] MEDS: SPIRONOLACTONE 25 MG TAB PO SCH (10:51)
[2023-04-23] MEDS ORDERED: PROHANCE 279.3MG/ML 15ML VIAL As Ordered ONE (11:32)
[2023-04-23] MEDS ORDERED: PROHANCE 279.3MG/ML 5ML VIAL As Ordered ONE (11:32)
[2023-04-23] MEDS: CARVedilol 6.25 MG TAB PO SCH ×2 (12:56→21:00)
[2023-04-23] MEDS: cefTRIAXone SOD 2 GM in D5W MINI-BAG PLUS 50 ML IV SCH (14:10)
[2023-04-23 15:52] LABS: IONIZED CALCIUM 4.5 MG/DL (4.5-5.3)
[2023-04-23 16:00] VITALS: BP 96/59; TEMP 97.6; O2SAT 97
[2023-04-23 16:23] LABS: MAGNESIUM LEVEL 1.4 MG/DL (1.8-2.4); POTASSIUM SERUM 3.2 MMOL/L (3.5-5.1)
[2023-04-23] MEDS ORDERED: POTASSIUM CHLORIDE 10MEQ SR TABLET PO ONE ×2 (16:35→23:00)
[2023-04-23 21:19] VITALS: BP 92/58; TEMP 97.8; O2SAT 97
[2023-04-23 22:12] LABS: IONIZED CALCIUM 4.7 MG/DL (4.5-5.3)
[2023-04-23 22:38] LABS: MAGNESIUM LEVEL 1.6 MG/DL (1.8-2.4); POTASSIUM SERUM 3.6 MMOL/L (3.5-5.1)
[2023-04-23 23:10] VITALS: BP 101/77; TEMP 97.8; O2SAT 96
[2023-04-24] MEDS: SODIUM CHLORIDE 0.9% INJ 10 ML SYR IV PRN (00:49)
[2023-04-24] MEDS: SODIUM CHLORIDE 0.9% INJ 10 ML SYR IV SCH ×2 (04:30→14:33)
[2023-04-24 04:56] LABS: BASO % 0.3 % (0.0-1.0); EOS # 0.2 10^3/uL (0.0-0.5); EOS % 1.5 % (0.0-3.0); HEMATOCRIT 33.6 % (42.0-52.0); HEMOGLOBIN 10.5 g/dl (13.5-17.5); LYMPH % 8.8 % (24.0-44.0); MEAN CORPUSCULAR HEMOGLOBIN 28.8 pg (27.0-33.0); MEAN CORPUSCULAR HGB CONC 31.3 g/dl (32.0-36.5); MEAN CORPUSCULAR VOLUME 92.1 fl (80.0-96.0); MONO # 1.3 10^3/uL (0.0-0.8); MONO % 11.4 % (2.0-8.0); NEUTROPHILS # 8.6 10^3/uL (1.5-8.5); NEUTROPHILS % 77.5 % (36.0-66.0); PLATELET COUNT, AUTOMATED 160 10^3/uL (150-450); RED BLOOD COUNT 3.65 10^6/uL (4.30-6.10); WHITE BLOOD COUNT 11.1 10^3/uL (4.0-10.0)
[2023-04-24 05:05] LABS: BLOOD UREA NITROGEN 17 MG/DL (9-23); CALCIUM LEVEL 8.8 MG/DL (8.5-10.1); CARBON DIOXIDE LEVEL 33 MMOL/L (20-31); CHLORIDE LEVEL 99 MMOL/L (98-107); CREATININE FOR GFR 0.85 MG/DL (0.70-1.30); GLOMERULAR FILTRATION RATE > 60.0 (>60); GLUCOSE, FASTING 104 MG/DL (60-100); MAGNESIUM LEVEL 1.6 MG/DL (1.8-2.4); POTASSIUM SERUM 4.3 MMOL/L (3.5-5.1); SODIUM LEVEL 136 MMOL/L (136-145)
[2023-04-24] MEDS: oxyCODONE 5MG TAB PO SCH ×3 (05:43→17:31)
[2023-04-24 05:47] VITALS: BP 100/83; TEMP 98.4; O2SAT 99
[2023-04-24] MEDS ORDERED: ISOVUE-370 76% 100ML VIAL As Ordered ONE (07:27)
[2023-04-24] MEDS ORDERED: MIDODRINE 5 MG TAB PO ONE (07:45)
[2023-04-24] MEDS: MULTIVITAMINS/MINERALS THERAP 1 TAB PO SCH (08:07)
[2023-04-24] MEDS: MAGNESIUM OXIDE 400MG TAB (MAG-OX) PO SCH ×3 (08:08→20:44)
[2023-04-24] MEDS: PANTOPRAZOLE 40MG TAB (PROTONIX) PO SCH (08:08)
[2023-04-24] MEDS: DULoxetine 30MG CAPSULE (CYMBALTA) PO SCH (08:08)
[2023-04-24] MEDS: THIAMINE 100 MG TAB PO SCH (08:08)
[2023-04-24] MEDS: FOLIC ACID 1MG TAB PO SCH (08:08)
[2023-04-24] MEDS: POTASSIUM CHLORIDE 10MEQ SR TABLET PO SCH ×3 (08:08→20:44)
[2023-04-24] MEDS: DAPAGLIFLOZIN PROPANEDIOL 10MG TABLET (FARXIGA) PO SCH (08:09)
[2023-04-24] MEDS: APIXABAN 5 MG TAB (ELIQUIS) PO SCH ×2 (09:09→20:44)
[2023-04-24] MEDS: SPIRONOLACTONE 25 MG TAB PO SCH (09:12)
[2023-04-24] MEDS: CARVedilol 6.25 MG TAB PO SCH ×2 (09:13→20:44)
[2023-04-24] MEDS: MAG SULF 1GM/100ML (MAG RUN) 1 GM in IV 1 EA IV SCH ×2 (12:00→12:01)
[2023-04-24] MEDS: cefTRIAXone SOD 2 GM in D5W MINI-BAG PLUS 50 ML IV SCH (13:50)
[2023-04-24 14:00] VITALS: BP 98/77; TEMP 97; O2SAT 98
[2023-04-24 14:45] LABS: IONIZED CALCIUM 4.8 MG/DL (4.5-5.3)
[2023-04-24 15:26] LABS: ALBUMIN 2.4 G/DL (3.2-5.2); POTASSIUM SERUM 4.9 MMOL/L (3.5-5.1); TOTAL PROTEIN 5.6 G/DL (5.7-8.2)
[2023-04-24 20:00] VITALS: BP 106/62; TEMP 97.2; O2SAT 95
[2023-04-25] MEDS: oxyCODONE 5MG TAB PO SCH ×4 (00:21→17:23)
[2023-04-25 04:59] VITALS: BP 112/70; TEMP 97; O2SAT 99
[2023-04-25] MEDS: SODIUM CHLORIDE 0.9% INJ 10 ML SYR IV SCH ×2 (05:18→17:24)
[2023-04-25 05:40] LABS: BASO % 0.3 % (0.0-1.0); EOS # 0.2 10^3/uL (0.0-0.5); EOS % 1.5 % (0.0-3.0); HEMATOCRIT 33.8 % (42.0-52.0); HEMOGLOBIN 10.5 g/dl (13.5-17.5); LYMPH # 0.9 10^3/uL (1.5-5.0); LYMPH % 8.7 % (24.0-44.0); MEAN CORPUSCULAR HEMOGLOBIN 28.5 pg (27.0-33.0); MEAN CORPUSCULAR HGB CONC 31.1 g/dl (32.0-36.5); MEAN CORPUSCULAR VOLUME 91.8 fl (80.0-96.0); MONO # 1.2 10^3/uL (0.0-0.8); MONO % 11.9 % (2.0-8.0); NEUTROPHILS # 7.7 10^3/uL (1.5-8.5); NEUTROPHILS % 77.1 % (36.0-66.0); PLATELET COUNT, AUTOMATED 148 10^3/uL (150-450); RED BLOOD COUNT 3.68 10^6/uL (4.30-6.10)
[2023-04-25 06:12] LABS: BLOOD UREA NITROGEN 19 MG/DL (9-23); CALCIUM LEVEL 8.7 MG/DL (8.5-10.1); CARBON DIOXIDE LEVEL 32 MMOL/L (20-31); CHLORIDE LEVEL 103 MMOL/L (98-107); CREATININE FOR GFR 0.86 MG/DL (0.70-1.30); GLOMERULAR FILTRATION RATE > 60.0 (>60); GLUCOSE, FASTING 106 MG/DL (60-100); POTASSIUM SERUM 5.1 MMOL/L (3.5-5.1); SODIUM LEVEL 138 MMOL/L (136-145)
[2023-04-25] MEDS: DAPAGLIFLOZIN PROPANEDIOL 10MG TABLET (FARXIGA) PO SCH (07:54)
[2023-04-25] MEDS: POTASSIUM CHLORIDE 10MEQ SR TABLET PO SCH ×3 (07:54→19:55)
[2023-04-25] MEDS: SPIRONOLACTONE 25 MG TAB PO SCH (07:55)
[2023-04-25] MEDS: PANTOPRAZOLE 40MG TAB (PROTONIX) PO SCH (08:21)
[2023-04-25] MEDS: DULoxetine 30MG CAPSULE (CYMBALTA) PO SCH (08:21)
[2023-04-25] MEDS: MULTIVITAMINS/MINERALS THERAP 1 TAB PO SCH (08:21)
[2023-04-25] MEDS: FOLIC ACID 1MG TAB PO SCH (08:21)
[2023-04-25] MEDS: DOCUSATE SODIUM 100MG CAPSULE PO SCH (08:21)
[2023-04-25] MEDS: APIXABAN 5 MG TAB (ELIQUIS) PO SCH ×2 (08:21→20:03)
[2023-04-25] MEDS: MAGNESIUM OXIDE 400MG TAB (MAG-OX) PO SCH ×3 (08:22→20:03)
[2023-04-25] MEDS: CARVedilol 6.25 MG TAB PO SCH ×2 (08:22→20:03)
[2023-04-25] MEDS ORDERED: MOM 30ML SUSPENSION UDC PO PRN (10:20)
[2023-04-25 14:57] LABS: MAGNESIUM LEVEL 1.9 MG/DL (1.8-2.4)
[2023-04-25 15:07] VITALS: BP 98/64; TEMP 96.8; O2SAT 51
[2023-04-25 20:02] VITALS: BP 108/82; TEMP 96.4; O2SAT 97
[2023-04-26] MEDS: oxyCODONE 5MG TAB PO SCH ×4 (00:15→17:34)
[2023-04-26] MEDS: SODIUM CHLORIDE 0.9% INJ 10 ML SYR IV SCH ×2 (05:16→17:34)
[2023-04-26 05:38] LABS: BASO % 0.5 % (0.0-1.0); EOS # 0.1 10^3/uL (0.0-0.5); EOS % 1.7 % (0.0-3.0); HEMATOCRIT 33.3 % (42.0-52.0); HEMOGLOBIN 10.2 g/dl (13.5-17.5); LYMPH % 12.2 % (24.0-44.0); MEAN CORPUSCULAR HEMOGLOBIN 28.3 pg (27.0-33.0); MEAN CORPUSCULAR HGB CONC 30.6 g/dl (32.0-36.5); MEAN CORPUSCULAR VOLUME 92.5 fl (80.0-96.0); MONO % 11.5 % (2.0-8.0); NEUTROPHILS # 6.1 10^3/uL (1.5-8.5); NEUTROPHILS % 73.5 % (36.0-66.0); PLATELET COUNT, AUTOMATED 143 10^3/uL (150-450); WHITE BLOOD COUNT 8.3 10^3/uL (4.0-10.0)
[2023-04-26 06:02] LABS: BLOOD UREA NITROGEN 23 MG/DL (9-23); CALCIUM LEVEL 8.7 MG/DL (8.5-10.1); CARBON DIOXIDE LEVEL 30 MMOL/L (20-31); CHLORIDE LEVEL 103 MMOL/L (98-107); CREATININE FOR GFR 0.93 MG/DL (0.70-1.30); GLOMERULAR FILTRATION RATE > 60.0 (>60); GLUCOSE, FASTING 101 MG/DL (60-100); POTASSIUM SERUM 4.7 MMOL/L (3.5-5.1); SODIUM LEVEL 139 MMOL/L (136-145)
[2023-04-26 06:06] VITALS: BP 118/80; TEMP 97.7; O2SAT 98
[2023-04-26] MEDS: POTASSIUM CHLORIDE 10MEQ SR TABLET PO SCH ×3 (09:00→19:15)
[2023-04-26] MEDS: DAPAGLIFLOZIN PROPANEDIOL 10MG TABLET (FARXIGA) PO SCH ×2 (09:00→09:05)
[2023-04-26] MEDS: FOLIC ACID 1MG TAB PO SCH (09:05)
[2023-04-26] MEDS: DOCUSATE SODIUM 100MG CAPSULE PO SCH (09:05)
[2023-04-26] MEDS: APIXABAN 5 MG TAB (ELIQUIS) PO SCH ×2 (09:05→20:24)
[2023-04-26] MEDS: CARVedilol 6.25 MG TAB PO SCH ×2 (09:06→20:24)
[2023-04-26] MEDS: MULTIVITAMINS/MINERALS THERAP 1 TAB PO SCH (09:06)
[2023-04-26] MEDS: DULoxetine 30MG CAPSULE (CYMBALTA) PO SCH (09:06)
[2023-04-26] MEDS: SPIRONOLACTONE 25 MG TAB PO SCH (09:06)
[2023-04-26] MEDS: PANTOPRAZOLE 40MG TAB (PROTONIX) PO SCH (09:06)
[2023-04-26] MEDS: MIRALAX *UNIT DOSE* 17GM PACKET PO SCH ×2 (11:40→20:23)
[2023-04-26 14:29] VITALS: BP 109/75; TEMP 97.8; O2SAT 99
[2023-04-26 20:12] VITALS: BP 115/88; TEMP 97.6; O2SAT 97
[2023-04-27] MEDS: oxyCODONE 5MG TAB PO SCH ×5 (00:07→23:31)
[2023-04-27 06:00] VITALS: BP 116/84; TEMP 97.2; O2SAT 98
[2023-04-27] MEDS: SODIUM CHLORIDE 0.9% INJ 10 ML SYR IV SCH ×2 (06:21→17:02)
[2023-04-27 06:44] LABS: BASO % 0.2 % (0.0-1.0); EOS # 0.1 10^3/uL (0.0-0.5); EOS % 1.3 % (0.0-3.0); HEMOGLOBIN 10.6 g/dl (13.5-17.5); LYMPH % 11.6 % (24.0-44.0); MEAN CORPUSCULAR HEMOGLOBIN 28.6 pg (27.0-33.0); MEAN CORPUSCULAR HGB CONC 31.2 g/dl (32.0-36.5); MEAN CORPUSCULAR VOLUME 91.6 fl (80.0-96.0); MONO # 0.9 10^3/uL (0.0-0.8); MONO % 11.1 % (2.0-8.0); NEUTROPHILS # 6.3 10^3/uL (1.5-8.5); NEUTROPHILS % 75.4 % (36.0-66.0); PLATELET COUNT, AUTOMATED 148 10^3/uL (150-450); RED BLOOD COUNT 3.71 10^6/uL (4.30-6.10); WHITE BLOOD COUNT 8.3 10^3/uL (4.0-10.0)
[2023-04-27 07:18] LABS: BLOOD UREA NITROGEN 23 MG/DL (9-23); CALCIUM LEVEL 8.8 MG/DL (8.5-10.1); CARBON DIOXIDE LEVEL 31 MMOL/L (20-31); CHLORIDE LEVEL 103 MMOL/L (98-107); CREATININE FOR GFR 0.94 MG/DL (0.70-1.30); GLOMERULAR FILTRATION RATE > 60.0 (>60); GLUCOSE, FASTING 94 MG/DL (60-100); POTASSIUM SERUM 4.4 MMOL/L (3.5-5.1); SODIUM LEVEL 140 MMOL/L (136-145)
[2023-04-27] MEDS: POTASSIUM CHLORIDE 10MEQ SR TABLET PO SCH ×3 (09:42→20:31)
[2023-04-27] MEDS: MULTIVITAMINS/MINERALS THERAP 1 TAB PO SCH (09:43)
[2023-04-27] MEDS: FOLIC ACID 1MG TAB PO SCH (09:43)
[2023-04-27] MEDS: CARVedilol 6.25 MG TAB PO SCH ×2 (09:43→20:30)
[2023-04-27] MEDS: APIXABAN 5 MG TAB (ELIQUIS) PO SCH ×2 (09:44→20:31)
[2023-04-27] MEDS: DAPAGLIFLOZIN PROPANEDIOL 10MG TABLET (FARXIGA) PO SCH ×2 (09:44→10:17)
[2023-04-27] MEDS: DULoxetine 30MG CAPSULE (CYMBALTA) PO SCH (09:44)
[2023-04-27] MEDS: DOCUSATE SODIUM 100MG CAPSULE PO SCH (09:44)
[2023-04-27] MEDS ORDERED: TAMSULOSIN 0.4 MG CAP PO ONE (09:45)
[2023-04-27] MEDS: PANTOPRAZOLE 40MG TAB (PROTONIX) PO SCH (09:45)
[2023-04-27] MEDS: SPIRONOLACTONE 25 MG TAB PO SCH (09:45)
[2023-04-27] MEDS: FUROSEMIDE 40 MG TAB PO SCH (09:46)
[2023-04-27] MEDS: LACTULOSE 20GM/30ML SYRUP UDC PO SCH ×2 (12:01→20:31)
[2023-04-27 12:02] VITALS: BP 103/75
[2023-04-27 14:00] VITALS: BP 114/90; TEMP 97.7; O2SAT 98
[2023-04-27 20:50] VITALS: BP 103/76; TEMP 98.1; O2SAT 100
[2023-04-27 22:00] VITALS: BP 122/74; TEMP 97.2; O2SAT 98
[2023-04-28] MEDS: oxyCODONE 5MG TAB PO SCH ×2 (05:35→11:56)
[2023-04-28] MEDS: SODIUM CHLORIDE 0.9% INJ 10 ML SYR IV SCH (05:36)
[2023-04-28 06:00] VITALS: BP 120/74; TEMP 98; O2SAT 98
[2023-04-28 06:13] LABS: BASO % 0.3 % (0.0-1.0); EOS # 0.1 10^3/uL (0.0-0.5); EOS % 0.8 % (0.0-3.0); HEMATOCRIT 34.6 % (42.0-52.0); HEMOGLOBIN 10.7 g/dl (13.5-17.5); LYMPH % 9.8 % (24.0-44.0); MEAN CORPUSCULAR HEMOGLOBIN 28.5 pg (27.0-33.0); MEAN CORPUSCULAR HGB CONC 30.9 g/dl (32.0-36.5); MEAN CORPUSCULAR VOLUME 92.3 fl (80.0-96.0); MONO # 1.2 10^3/uL (0.0-0.8); MONO % 12.3 % (2.0-8.0); NEUTROPHILS # 7.4 10^3/uL (1.5-8.5); NEUTROPHILS % 76.2 % (36.0-66.0); PLATELET COUNT, AUTOMATED 161 10^3/uL (150-450); RED BLOOD COUNT 3.75 10^6/uL (4.30-6.10); WHITE BLOOD COUNT 9.7 10^3/uL (4.0-10.0)
[2023-04-28 06:58] LABS: BLOOD UREA NITROGEN 22 MG/DL (9-23); CALCIUM LEVEL 8.6 MG/DL (8.5-10.1); CARBON DIOXIDE LEVEL 29 MMOL/L (20-31); CHLORIDE LEVEL 105 MMOL/L (98-107); CREATININE FOR GFR 1.02 MG/DL (0.70-1.30); GLOMERULAR FILTRATION RATE > 60.0 (>60); GLUCOSE, FASTING 103 MG/DL (60-100); POTASSIUM SERUM 4.5 MMOL/L (3.5-5.1); SODIUM LEVEL 141 MMOL/L (136-145)
[2023-04-28 08:00] VITALS: BP 115/84; TEMP 98.2; O2SAT 98
[2023-04-28] MEDS: POTASSIUM CHLORIDE 10MEQ SR TABLET PO SCH (08:10)
[2023-04-28] MEDS: SPIRONOLACTONE 25 MG TAB PO SCH (08:12)
[2023-04-28] MEDS: FOLIC ACID 1MG TAB PO SCH (08:13)
[2023-04-28] MEDS: APIXABAN 5 MG TAB (ELIQUIS) PO SCH (08:13)
[2023-04-28] MEDS: DULoxetine 30MG CAPSULE (CYMBALTA) PO SCH (08:13)
[2023-04-28] MEDS: DOCUSATE SODIUM 100MG CAPSULE PO SCH (08:13)
[2023-04-28] MEDS: LACTULOSE 20GM/30ML SYRUP UDC PO SCH (08:13)
[2023-04-28] MEDS: PANTOPRAZOLE 40MG TAB (PROTONIX) PO SCH (08:13)
[2023-04-28] MEDS: FUROSEMIDE 40 MG TAB PO SCH (08:14)
[2023-04-28 08:15] VITALS: BP 115/84
[2023-04-28] MEDS: CARVedilol 6.25 MG TAB PO SCH (08:15)
[2023-04-28] MEDS: MULTIVITAMINS/MINERALS THERAP 1 TAB PO SCH (08:16)
[2023-04-28] MEDS ORDERED: TAMSULOSIN 0.4 MG CAP PO SCH (09:00)
[2023-04-28] MEDS ORDERED: BISACODYL 10MG SUPP PR ONE (09:10)
[2023-04-28] MEDS ORDERED: VITMTA PO (11:35)
[2023-04-28] MEDS ORDERED: ALDA25TA2 PO (11:35)
[2023-04-28] MEDS ORDERED: FLOM0.4C39 PO (11:35)
[2023-04-28] MEDS ORDERED: CARV6.25 PO (11:35)
[2023-04-28] MEDS ORDERED: FURO40TA2 PO (11:35)
[2023-04-28] MEDS ORDERED: POTA-136 PO (11:35)
== END 2023-04-28 13:11 | disposition home or self-care (01) | DRG 292 ==
LOC: M ED 08:21 → M ED INP 11:54 → ENRESERV 13:51 → M PCU 15:30 → M MS4PR 04-23 23:20 → M PCU 04-27 18:29
PROVIDERS: ADMIT General Practice; ATTEND Student in an Organized Health Care Education/Training Program
DX: I50.33 Acute on chronic diastolic (congestive) heart failure (principal); I47.20 Ventricular tachycardia, unspecified; I42.6 Alcoholic cardiomyopathy; I27.20 Pulmonary hypertension, unspecified; E83.42 Hypomagnesemia; K70.11 Alcoholic hepatitis with ascites; F32.A Depression, unspecified; M46.47 Discitis, unspecified, lumbosacral region; J45.909 Unspecified asthma, uncomplicated; F17.210 Nicotine dependence, cigarettes, uncomplicated; F10.20 Alcohol dependence, uncomplicated; Z66 Do not resuscitate; Z79.899 Other long term (current) drug therapy; Z86.711 Personal history of pulmonary embolism; Z86.16 Personal history of COVID-19; K59.00 Constipation, unspecified; Z95.3 Presence of xenogenic heart valve; Z79.01 Long term (current) use of anticoagulants

== ENCOUNTER 2023-05-29 01:25 | Inpatient (IN) | payer MEDICAID, OTHER ==
[~2023-05-29] VITALS: Ht 167.6 cm; Wt 70.0 kg
[~2023-05-29 01:25] MED LIST changes: +ALDA25TA2 PO; +B-1100TA2 PO; +CARV6.25 PO; +DULO1CAP5 PO; +FLOM0.4C39 PO; +FURO40TA2 PO; +OXYC-517 PO; +POTA-136 PO
[2023-05-29 01:58] LABS: BASO % 0.4 % (0.0-1.0); EOS # 0.1 10^3/uL (0.0-0.5); EOS % 1.3 % (0.0-3.0); HEMATOCRIT 44.1 % (42.0-52.0); HEMOGLOBIN 14.3 g/dl (13.5-17.5); LYMPH # 1.3 10^3/uL (1.5-5.0); LYMPH % 13.6 % (24.0-44.0); MEAN CORPUSCULAR HEMOGLOBIN 26.9 pg (27.0-33.0); MEAN CORPUSCULAR HGB CONC 32.4 g/dl (32.0-36.5); MEAN CORPUSCULAR VOLUME 82.9 fl (80.0-96.0); MONO # 0.9 10^3/uL (0.0-0.8); MONO % 9.6 % (2.0-8.0); NEUTROPHILS # 7.1 10^3/uL (1.5-8.5); NEUTROPHILS % 74.9 % (36.0-66.0); PLATELET COUNT, AUTOMATED 248 10^3/uL (150-450); RED BLOOD COUNT 5.32 10^6/uL (4.30-6.10); WHITE BLOOD COUNT 9.4 10^3/uL (4.0-10.0)
[2023-05-29 02:22] LABS: BLOOD UREA NITROGEN 16 MG/DL (9-23); CALCIUM LEVEL 9.2 MG/DL (8.5-10.1); CARBON DIOXIDE LEVEL 29 MMOL/L (20-31); CHLORIDE LEVEL 97 MMOL/L (98-107); CREATININE FOR GFR 0.99 MG/DL (0.70-1.30); GLOMERULAR FILTRATION RATE > 60.0 (>60); GLUCOSE, FASTING 96 MG/DL (60-100); MAGNESIUM LEVEL 1.5 MG/DL (1.8-2.4); POTASSIUM SERUM 3.7 MMOL/L (3.5-5.1); SODIUM LEVEL 134 MMOL/L (136-145)
[2023-05-29 02:44] LABS: CK-MB VALUE MASS < 1.0 NG/ML (<3.6)
[2023-05-29 02:46] LABS: CPK CREATINE PHOSPHOKINASE 34 U/L (46-171); MB/CK RELATIVE INDEX 2.94 (< OR =4)
[2023-05-29 03:42] LABS: CK-MB VALUE MASS < 1.0 NG/ML (<3.6)
[2023-05-29 03:47] LABS: CPK CREATINE PHOSPHOKINASE 21 U/L (46-171); MB/CK RELATIVE INDEX 4.76 (< OR =4)
[2023-05-29] MEDS ORDERED: MORPHINE 4 MG/ML 1ML VIAL IV ONE (03:55)
[2023-05-29] MEDS ORDERED: FUROSEMIDE 100MG/10ML VIAL IV ONE (03:55)
[2023-05-29 05:31] LABS: CK-MB VALUE MASS < 1.0 NG/ML (<3.6)
[2023-05-29] MEDS ORDERED: LACT10SO3 PO (05:35)
[2023-05-29] MEDS ORDERED: MIDO5TA PO (05:35)
[2023-05-29] MEDS ORDERED: POTA-151 PO (05:35)
[2023-05-29] MEDS ORDERED: FOLI1TAB11 PO (05:35)
[2023-05-29] MEDS ORDERED: MAGN400T2 PO (05:35)
[2023-05-29] MEDS ORDERED: FURO40TA2 PO (05:35)
[2023-05-29] MEDS ORDERED: JARD1TAB PO (05:35)
[2023-05-29] MEDS ORDERED: FLOM0.4C39 PO (05:35)
[2023-05-29] MEDS ORDERED: CARV3.12 PO (05:35)
[2023-05-29] MEDS ORDERED: SPIR50TA4 PO (05:35)
[2023-05-29 05:37] LABS: CPK CREATINE PHOSPHOKINASE 26 U/L (46-171); MB/CK RELATIVE INDEX 3.84 (< OR =4)
[2023-05-29] MEDS ORDERED: HOME MED LIST COMPLETE! XX SCH (05:40)
[2023-05-29] MEDS ORDERED: ISOVUE-370 76% 100ML VIAL As Ordered ONE (05:57)
[2023-05-29] MEDS ORDERED: CARVedilol 3.125 MG TAB PO SCH (09:00)
[2023-05-29] MEDS ORDERED: MOM 30ML SUSPENSION UDC PO PRN (09:25)
[2023-05-29] MEDS ORDERED: MAALOX 30 ML SUSP *UDC PO PRN (09:25)
[2023-05-29] MEDS ORDERED: LORazepam 2 MG TAB PO PRN (11:10)
[2023-05-29] MEDS ORDERED: GLUCAGON INJ 1MG VIAL SC PRN (11:40)
[2023-05-29] MEDS ORDERED: DEXTROSE 50% 50ML SYRINGE IV PRN (11:40)
[2023-05-29] MEDS ORDERED: GLUCOSE 4GM CHEW TABLET PO PRN (11:40)
[2023-05-29] MEDS: TAMSULOSIN 0.4 MG CAP PO SCH (12:00)
[2023-05-29] MEDS: FUROSEMIDE 40MG/4ML VIAL IV SCH ×2 (12:00→21:09)
[2023-05-29] MEDS ORDERED: NICOTINE 21MG/24HR 1 EA TRANSDERMAL TD PRN (12:15)
[2023-05-29] MEDS: POTASSIUM CHLORIDE 10MEQ SR TABLET PO SCH (12:29)
[2023-05-29] MEDS: PANTOPRAZOLE 40MG TAB (PROTONIX) PO SCH (12:29)
[2023-05-29] MEDS: MULTIVITAMINS/MINERALS THERAP 1 TAB PO SCH (12:30)
[2023-05-29] MEDS: DULoxetine 30MG CAPSULE (CYMBALTA) PO SCH (12:30)
[2023-05-29] MEDS: APIXABAN 5 MG TAB (ELIQUIS) PO SCH ×2 (12:30→20:17)
[2023-05-29] MEDS: MIDODRINE 5 MG TAB PO SCH ×2 (12:31→16:42)
[2023-05-29] MEDS: MIRALAX *UNIT DOSE* 17GM PACKET PO SCH ×2 (12:32→20:17)
[2023-05-29] MEDS: FOLIC ACID 1MG TAB PO SCH (12:33)
[2023-05-29] MEDS: INSULIN LISPRO (NovoLOG) PER UNIT SC SCH ×2 (12:36→17:30)
[2023-05-29] MEDS ORDERED: MAG SULF 1GM/100ML (MAG RUN) 1 GM in IV 1 EA IV ONE (13:00)
[2023-05-29] MEDS ORDERED: MIDODRINE 5 MG TAB PO ONE (13:40)
[2023-05-29] MEDS: ACETAMINOPHEN TAB 650MG DOSE (2X325MG) PO PRN (16:50)
[2023-05-29 18:05] VITALS: BP 106/82; TEMP 97.9; O2SAT 95
[2023-05-29] MEDS: oxyCODONE 5MG TAB PO PRN (18:10)
[2023-05-29 19:00] VITALS: O2SAT 97
[2023-05-29 19:48] VITALS: BP 105/75; TEMP 97.2; O2SAT 98
[2023-05-29] MEDS: THIAMINE 100 MG TAB PO SCH (20:17)
[2023-05-29] MEDS: MAGNESIUM OXIDE 400MG TAB (MAG-OX) PO SCH (20:17)
[2023-05-29] MEDS ORDERED: PILL CUTTER 1 EACH XX PRN (20:40)
[2023-05-29] MEDS ORDERED: INSULIN LISPRO (NovoLOG) PER UNIT SC SCH (21:00)
[2023-05-29 21:05] VITALS: BP 112/74; O2SAT 97
[2023-05-29] MEDS: SPIRONOLACTONE 50 MG TAB PO SCH (21:09)
[2023-05-29 23:44] VITALS: BP 106/78; TEMP 97; O2SAT 96
[2023-05-30] VITALS (7 sets, daily range): BP systolic 104–125; BP diastolic 79–90; TEMP 96.7–98; O2SAT 95–99
[2023-05-30] MEDS: oxyCODONE 5MG TAB PO PRN ×4 (02:44→23:46)
[2023-05-30] MEDS: FUROSEMIDE 40MG/4ML VIAL IV SCH ×3 (04:02→20:18)
[2023-05-30 04:20] LABS: HEMATOCRIT 35.6 % (42.0-52.0); MEAN CORPUSCULAR HEMOGLOBIN 26.5 pg (27.0-33.0); MEAN CORPUSCULAR VOLUME 82.8 fl (80.0-96.0); PLATELET COUNT, AUTOMATED 203 10^3/uL (150-450)
[2023-05-30 04:28] LABS: HEMOGLOBIN 11.4 g/dl (13.5-17.5)
[2023-05-30 04:57] LABS: BLOOD UREA NITROGEN 17 MG/DL (9-23); CALCIUM LEVEL 8.4 MG/DL (8.5-10.1); CARBON DIOXIDE LEVEL 31 MMOL/L (20-31); CHLORIDE LEVEL 99 MMOL/L (98-107); CREATININE FOR GFR 0.96 MG/DL (0.70-1.30); GLOMERULAR FILTRATION RATE > 60.0 (>60); GLUCOSE, FASTING 143 MG/DL (60-100); MAGNESIUM LEVEL 1.6 MG/DL (1.8-2.4); POTASSIUM SERUM 3.4 MMOL/L (3.5-5.1); SODIUM LEVEL 135 MMOL/L (136-145)
[2023-05-30] MEDS ORDERED: POTASSIUM CHLORIDE 10MEQ SR TABLET PO ONE ×2 (06:00→10:00)
[2023-05-30] MEDS ORDERED: MAGNESIUM OXIDE 400MG TAB (MAG-OX) PO ONE (06:00)
[2023-05-30] MEDS: TAMSULOSIN 0.4 MG CAP PO SCH (08:50)
[2023-05-30] MEDS: FOLIC ACID 1MG TAB PO SCH (08:50)
[2023-05-30] MEDS: APIXABAN 5 MG TAB (ELIQUIS) PO SCH ×2 (08:50→20:18)
[2023-05-30] MEDS: DULoxetine 30MG CAPSULE (CYMBALTA) PO SCH (08:50)
[2023-05-30] MEDS: PANTOPRAZOLE 40MG TAB (PROTONIX) PO SCH (08:50)
[2023-05-30] MEDS: MIRALAX *UNIT DOSE* 17GM PACKET PO SCH ×2 (08:50→20:19)
[2023-05-30] MEDS: MULTIVITAMINS/MINERALS THERAP 1 TAB PO SCH (08:51)
[2023-05-30] MEDS: POTASSIUM CHLORIDE 10MEQ SR TABLET PO SCH (08:51)
[2023-05-30] MEDS: MIDODRINE 5 MG TAB PO SCH ×3 (08:54→16:49)
[2023-05-30] MEDS: DAPAGLIFLOZIN PROPANEDIOL 10MG TABLET (FARXIGA) PO SCH (09:00)
[2023-05-30] MEDS ORDERED: MAG SULF 1GM/100ML (MAG RUN) 1 GM in IV 1 EA IV ONE (10:00)
[2023-05-30 10:56] LABS: MAGNESIUM LEVEL 1.8 MG/DL (1.8-2.4); POTASSIUM SERUM 3.5 MMOL/L (3.5-5.1)
[2023-05-30] MEDS: MAGNESIUM OXIDE 400MG TAB (MAG-OX) PO SCH (20:18)
[2023-05-30] MEDS: SPIRONOLACTONE 50 MG TAB PO SCH (20:18)
[2023-05-30] MEDS: THIAMINE 100 MG TAB PO SCH (20:18)
[2023-05-31 04:00] VITALS: BP 120/90; TEMP 97.1; O2SAT 98
[2023-05-31] MEDS: FUROSEMIDE 40MG/4ML VIAL IV SCH ×3 (04:05→20:58)
[2023-05-31 04:37] LABS: HEMATOCRIT 36.4 % (42.0-52.0); HEMOGLOBIN 11.8 g/dl (13.5-17.5); MEAN CORPUSCULAR HEMOGLOBIN 26.8 pg (27.0-33.0); MEAN CORPUSCULAR HGB CONC 32.4 g/dl (32.0-36.5); MEAN CORPUSCULAR VOLUME 82.7 fl (80.0-96.0); PLATELET COUNT, AUTOMATED 205 10^3/uL (150-450); WHITE BLOOD COUNT 10.3 10^3/uL (4.0-10.0)
[2023-05-31 04:55] LABS: BLOOD UREA NITROGEN 16 MG/DL (9-23); CALCIUM LEVEL 8.6 MG/DL (8.5-10.1); CARBON DIOXIDE LEVEL 29 MMOL/L (20-31); CHLORIDE LEVEL 99 MMOL/L (98-107); CREATININE FOR GFR 0.94 MG/DL (0.70-1.30); GLOMERULAR FILTRATION RATE > 60.0 (>60); GLUCOSE, FASTING 103 MG/DL (60-100); MAGNESIUM LEVEL 1.6 MG/DL (1.8-2.4); POTASSIUM SERUM 3.6 MMOL/L (3.5-5.1); SODIUM LEVEL 135 MMOL/L (136-145)
[2023-05-31] MEDS ORDERED: MAG SULF 1GM/100ML (MAG RUN) 1 GM in IV 1 EA IV ONE ×2 (06:00→09:00)
[2023-05-31 08:03] VITALS: BP 117/75; TEMP 98.6; O2SAT 99
[2023-05-31] MEDS: MIRALAX *UNIT DOSE* 17GM PACKET PO SCH ×2 (08:33→20:59)
[2023-05-31] MEDS: MIDODRINE 5 MG TAB PO SCH ×3 (08:34→16:17)
[2023-05-31] MEDS: FOLIC ACID 1MG TAB PO SCH (08:34)
[2023-05-31] MEDS: APIXABAN 5 MG TAB (ELIQUIS) PO SCH ×2 (08:34→20:58)
[2023-05-31] MEDS: MULTIVITAMINS/MINERALS THERAP 1 TAB PO SCH (08:34)
[2023-05-31] MEDS: DULoxetine 30MG CAPSULE (CYMBALTA) PO SCH (08:34)
[2023-05-31] MEDS: oxyCODONE 5MG TAB PO PRN ×2 (08:34→21:02)
[2023-05-31] MEDS: PANTOPRAZOLE 40MG TAB (PROTONIX) PO SCH (08:34)
[2023-05-31] MEDS: TAMSULOSIN 0.4 MG CAP PO SCH (08:35)
[2023-05-31] MEDS: POTASSIUM CHLORIDE 10MEQ SR TABLET PO SCH ×2 (08:35→20:59)
[2023-05-31] MEDS: DAPAGLIFLOZIN PROPANEDIOL 10MG TABLET (FARXIGA) PO SCH (09:00)
[2023-05-31] MEDS: MAGNESIUM OXIDE 400MG TAB (MAG-OX) PO SCH ×2 (10:48→20:58)
[2023-05-31 12:46] VITALS: BP 105/74; TEMP 98.2; O2SAT 92
[2023-05-31 17:43] LABS: IONIZED CALCIUM 4.3 MG/DL (4.5-5.3)
[2023-05-31 18:12] LABS: BLOOD UREA NITROGEN 15 MG/DL (9-23); CALCIUM LEVEL 8.8 MG/DL (8.5-10.1); CARBON DIOXIDE LEVEL 29 MMOL/L (20-31); CHLORIDE LEVEL 98 MMOL/L (98-107); CREATININE FOR GFR 0.96 MG/DL (0.70-1.30); GLOMERULAR FILTRATION RATE > 60.0 (>60); GLUCOSE, FASTING 143 MG/DL (60-100); MAGNESIUM LEVEL 1.7 MG/DL (1.8-2.4); POTASSIUM SERUM 3.6 MMOL/L (3.5-5.1); SODIUM LEVEL 134 MMOL/L (136-145)
[2023-05-31] MEDS ORDERED: MIDODRINE 5 MG TAB PO PRN (18:35)
[2023-05-31 20:20] VITALS: BP 107/78; TEMP 98.2; O2SAT 95
[2023-05-31] MEDS: THIAMINE 100 MG TAB PO SCH (20:58)
[2023-05-31] MEDS: SPIRONOLACTONE 50 MG TAB PO SCH (20:58)
[2023-05-31 22:30] VITALS: BP 109/80
[2023-06-01] MEDS: FUROSEMIDE 40MG/4ML VIAL IV SCH ×3 (04:14→21:07)
[2023-06-01 04:20] VITALS: BP 106/79; TEMP 98.1; O2SAT 93
[2023-06-01 07:25] LABS: BLOOD UREA NITROGEN 15 MG/DL (9-23); CALCIUM LEVEL 8.8 MG/DL (8.5-10.1); CARBON DIOXIDE LEVEL 32 MMOL/L (20-31); CHLORIDE LEVEL 99 MMOL/L (98-107); CREATININE FOR GFR 0.98 MG/DL (0.70-1.30); GLOMERULAR FILTRATION RATE > 60.0 (>60); GLUCOSE, FASTING 102 MG/DL (60-100); MAGNESIUM LEVEL 1.7 MG/DL (1.8-2.4); SODIUM LEVEL 137 MMOL/L (136-145)
[2023-06-01] MEDS: MIRALAX *UNIT DOSE* 17GM PACKET PO SCH ×2 (08:16→21:09)
[2023-06-01] MEDS: FOLIC ACID 1MG TAB PO SCH (08:17)
[2023-06-01] MEDS: TAMSULOSIN 0.4 MG CAP PO SCH (08:17)
[2023-06-01] MEDS: MULTIVITAMINS/MINERALS THERAP 1 TAB PO SCH (08:17)
[2023-06-01] MEDS: oxyCODONE 5MG TAB PO PRN ×2 (08:17→21:08)
[2023-06-01] MEDS: DULoxetine 30MG CAPSULE (CYMBALTA) PO SCH (08:17)
[2023-06-01] MEDS: POTASSIUM CHLORIDE 10MEQ SR TABLET PO SCH ×2 (08:18→21:08)
[2023-06-01] MEDS: DAPAGLIFLOZIN PROPANEDIOL 10MG TABLET (FARXIGA) PO SCH (08:18)
[2023-06-01] MEDS: MAGNESIUM OXIDE 400MG TAB (MAG-OX) PO SCH ×2 (08:18→21:08)
[2023-06-01] MEDS: APIXABAN 5 MG TAB (ELIQUIS) PO SCH ×2 (08:18→21:09)
[2023-06-01] MEDS: PANTOPRAZOLE 40MG TAB (PROTONIX) PO SCH (08:18)
[2023-06-01 14:00] VITALS: BP 116/81; TEMP 97.9; O2SAT 93
[2023-06-01] MEDS ORDERED: MAG SULF 1GM/100ML (MAG RUN) 1 GM in IV 1 EA IV ONE (14:00)
[2023-06-01 20:30] VITALS: BP 105/76; TEMP 97.2; O2SAT 94
[2023-06-01] MEDS: THIAMINE 100 MG TAB PO SCH (21:08)
[2023-06-01] MEDS: CARVedilol 3.125 MG TAB PO SCH (21:09)
[2023-06-01] MEDS: SPIRONOLACTONE 50 MG TAB PO SCH (21:09)
[2023-06-02] VITALS (10 sets, daily range): BP systolic 97–120; BP diastolic 68–91; TEMP 97.3–98.1; O2SAT 76–98
[2023-06-02] MEDS: FUROSEMIDE 40MG/4ML VIAL IV SCH ×3 (04:14→20:31)
[2023-06-02 06:53] LABS: BLOOD UREA NITROGEN 17 MG/DL (9-23); CALCIUM LEVEL 9.1 MG/DL (8.5-10.1); CARBON DIOXIDE LEVEL 28 MMOL/L (20-31); CHLORIDE LEVEL 100 MMOL/L (98-107); CREATININE FOR GFR 1.12 MG/DL (0.70-1.30); GLOMERULAR FILTRATION RATE > 60.0 (>60); GLUCOSE, FASTING 115 MG/DL (60-100); MAGNESIUM LEVEL 1.8 MG/DL (1.8-2.4); POTASSIUM SERUM 4.3 MMOL/L (3.5-5.1); SODIUM LEVEL 138 MMOL/L (136-145)
[2023-06-02] MEDS ORDERED: NITROGLYCERIN 0.4MG SUBL TABLET SL STA (08:21)
[2023-06-02] MEDS ORDERED: NITROGLYCERIN 0.4MG SUBL TABLET SL PRN (08:30)
[2023-06-02] MEDS: MIRALAX *UNIT DOSE* 17GM PACKET PO SCH ×3 (09:00→20:35)
[2023-06-02] MEDS ORDERED: IPRATROPIUM 0.5MG/ALBUTEROL 2.5MG INH SOL UD 3ML (DUONEB) NEB ONE (09:00)
[2023-06-02] MEDS ORDERED: MAG SULF 1GM/100ML (MAG RUN) 1 GM in IV 1 EA IV SCH (09:00)
[2023-06-02 09:07] LABS: CK-MB VALUE MASS < 1.0 NG/ML (<3.6)
[2023-06-02 09:08] LABS: CPK CREATINE PHOSPHOKINASE < 15 U/L (46-171)
[2023-06-02] MEDS ORDERED: ISOVUE-370 76% 100ML VIAL As Ordered ONE (09:44)
[2023-06-02] MEDS: MAGNESIUM OXIDE 400MG TAB (MAG-OX) PO SCH ×2 (09:56→20:32)
[2023-06-02] MEDS: DAPAGLIFLOZIN PROPANEDIOL 10MG TABLET (FARXIGA) PO SCH (09:56)
[2023-06-02] MEDS: TAMSULOSIN 0.4 MG CAP PO SCH (09:56)
[2023-06-02] MEDS: CARVedilol 3.125 MG TAB PO SCH ×2 (09:57→20:33)
[2023-06-02] MEDS: FOLIC ACID 1MG TAB PO SCH (09:57)
[2023-06-02] MEDS: DULoxetine 30MG CAPSULE (CYMBALTA) PO SCH (09:57)
[2023-06-02] MEDS: POTASSIUM CHLORIDE 10MEQ SR TABLET PO SCH ×2 (09:57→20:32)
[2023-06-02] MEDS: MULTIVITAMINS/MINERALS THERAP 1 TAB PO SCH (09:58)
[2023-06-02] MEDS: PANTOPRAZOLE 40MG TAB (PROTONIX) PO SCH (09:58)
[2023-06-02] MEDS: APIXABAN 5 MG TAB (ELIQUIS) PO SCH ×2 (09:58→20:34)
[2023-06-02 12:19] LABS: ABG BASE EXCESS 5.7 (-2.0-2.0); ABG HCO3 30.2 MMOL/L (22.0-26.0); ABG O2 SATURATION 19.4 % (95.0-99.0); ABG PARTIAL PRESSURE CO2 43.2 mmHg (35.0-45.0); ABG STANDARD HCO3 27.9 MMOL/L. (22.0-26.0); ABG TOTAL CO2 31.5 MMOL/L (22.0-29.0); ABG pH (ARTERIAL) 7.462 UNITS (7.350-7.450)
[2023-06-02 12:25] LABS: ABG PARTIAL PRESSURE O2 17.5 mmHg (75.0-100.0)
[2023-06-02] MEDS ORDERED: LEVALBUTEROL 1.25MG 0.5ML CONCENTRATE NEB INH PRN (15:15)
[2023-06-02] MEDS ORDERED: IPRATROPIUM 0.02% SOLN 0.5MG 2.5ML NEB INH PRN (15:15)
[2023-06-02] MEDS: IPRATROPIUM 0.02% SOLN 0.5MG 2.5ML NEB INH SCH ×2 (15:40→19:51)
[2023-06-02] MEDS: THIAMINE 100 MG TAB PO SCH (20:33)
[2023-06-02] MEDS: oxyCODONE 5MG TAB PO PRN (20:34)
[2023-06-02] MEDS: SPIRONOLACTONE 50 MG TAB PO SCH (20:34)
[2023-06-03] VITALS (8 sets, daily range): BP systolic 88–110; BP diastolic 40–82; TEMP 96.2–97.9; O2SAT 91–97
[2023-06-03] MEDS: oxyCODONE 5MG TAB PO PRN ×2 (05:02→13:41)
[2023-06-03] MEDS: FUROSEMIDE 40MG/4ML VIAL IV SCH (05:02)
[2023-06-03] MEDS ORDERED: MIDODRINE 5 MG TAB PO STA (07:11)
[2023-06-03] MEDS ORDERED: metOLazone 5 MG TAB PO ONE (07:15)
[2023-06-03 07:20] LABS: BLOOD UREA NITROGEN 21 MG/DL (9-23); CALCIUM LEVEL 9.4 MG/DL (8.5-10.1); CARBON DIOXIDE LEVEL 27 MMOL/L (20-31); CHLORIDE LEVEL 99 MMOL/L (98-107); CREATININE FOR GFR 1.21 MG/DL (0.70-1.30); GLOMERULAR FILTRATION RATE > 60.0 (>60); GLUCOSE, FASTING 142 MG/DL (60-100); POTASSIUM SERUM 4.7 MMOL/L (3.5-5.1); SODIUM LEVEL 134 MMOL/L (136-145)
[2023-06-03] MEDS: IPRATROPIUM 0.02% SOLN 0.5MG 2.5ML NEB INH SCH ×4 (07:41→19:25)
[2023-06-03] MEDS ORDERED: PIPERACILLIN/TAZOBACTAM SOD 4.5 GM in D5W MINI-BAG PLUS 50 ML IV SCH (08:00)
[2023-06-03] MEDS: LACTOBACILLUS ACIDOPHILUS CAP (BACID) PO SCH ×4 (08:00→20:34)
[2023-06-03 08:22] LABS: CK-MB VALUE MASS < 1.0 NG/ML (<3.6)
[2023-06-03 08:26] LABS: CPK CREATINE PHOSPHOKINASE < 15 U/L (46-171)
[2023-06-03] MEDS: MAG SULF 1GM/100ML (MAG RUN) 1 GM in IV 1 EA IV SCH ×2 (08:39→10:08)
[2023-06-03] MEDS ORDERED: FUROSEMIDE injection 250 MG in D5W 225 ML IV SCH (09:00)
[2023-06-03] MEDS ORDERED: CALCIUM GLUCONATE 1,000 MG in D5W MINI-BAG PLUS 100 ML IV ONE ×2 (09:00→13:30)
[2023-06-03] MEDS: POTASSIUM CHLORIDE 10MEQ SR TABLET PO SCH ×2 (09:00→20:34)
[2023-06-03] MEDS: DULoxetine 30MG CAPSULE (CYMBALTA) PO SCH (10:07)
[2023-06-03] MEDS: MAGNESIUM OXIDE 400MG TAB (MAG-OX) PO SCH ×2 (10:07→20:34)
[2023-06-03] MEDS: FOLIC ACID 1MG TAB PO SCH (10:07)
[2023-06-03] MEDS: DAPAGLIFLOZIN PROPANEDIOL 10MG TABLET (FARXIGA) PO SCH (10:07)
[2023-06-03] MEDS: TAMSULOSIN 0.4 MG CAP PO SCH (10:08)
[2023-06-03] MEDS: PANTOPRAZOLE 40MG TAB (PROTONIX) PO SCH (10:08)
[2023-06-03] MEDS: MULTIVITAMINS/MINERALS THERAP 1 TAB PO SCH (10:08)
[2023-06-03] MEDS: APIXABAN 5 MG TAB (ELIQUIS) PO SCH ×2 (10:08→20:34)
[2023-06-03] MEDS: MIRALAX *UNIT DOSE* 17GM PACKET PO SCH ×2 (10:09→20:35)
[2023-06-03 10:45] LABS: ABG BASE EXCESS 3.3 (-2.0-2.0); ABG HCO3 26.3 MMOL/L (22.0-26.0); ABG O2 SATURATION 97.9 % (95.0-99.0); ABG PARTIAL PRESSURE CO2 34.8 mmHg (35.0-45.0); ABG PARTIAL PRESSURE O2 106.9 mmHg (75.0-100.0); ABG STANDARD HCO3 27.4 MMOL/L. (22.0-26.0); ABG TOTAL CO2 27.4 MMOL/L (22.0-29.0); ABG pH (ARTERIAL) 7.496 UNITS (7.350-7.450)
[2023-06-03 12:05] LABS: IONIZED CALCIUM 4.1 MG/DL (4.5-5.3)
[2023-06-03 12:43] LABS: BLOOD UREA NITROGEN 20 MG/DL (9-23); CALCIUM LEVEL 9.4 MG/DL (8.5-10.1); CARBON DIOXIDE LEVEL 27 MMOL/L (20-31); CHLORIDE LEVEL 99 MMOL/L (98-107); CREATININE FOR GFR 1.14 MG/DL (0.70-1.30); GLOMERULAR FILTRATION RATE > 60.0 (>60); GLUCOSE, FASTING 144 MG/DL (60-100); MAGNESIUM LEVEL 2.7 MG/DL (1.8-2.4); POTASSIUM SERUM 4.5 MMOL/L (3.5-5.1); SODIUM LEVEL 134 MMOL/L (136-145)
[2023-06-03] MEDS: MIDODRINE 5 MG TAB PO SCH ×2 (13:40→17:11)
[2023-06-03] MEDS ORDERED: LIDOCAINE 2% 5ML JELLY UROJET TOP ONE (15:50)
[2023-06-03] MEDS ORDERED: MIDODRINE 5 MG TAB PO SCH (16:10)
[2023-06-03 18:06] LABS: IONIZED CALCIUM 4.8 MG/DL (4.5-5.3)
[2023-06-03 18:29] LABS: BLOOD UREA NITROGEN 20 MG/DL (9-23); CALCIUM LEVEL 10.3 MG/DL (8.5-10.1); CARBON DIOXIDE LEVEL 32 MMOL/L (20-31); CHLORIDE LEVEL 94 MMOL/L (98-107); CREATININE FOR GFR 1.24 MG/DL (0.70-1.30); GLOMERULAR FILTRATION RATE > 60.0 (>60); GLUCOSE, FASTING 111 MG/DL (60-100); POTASSIUM SERUM 4.3 MMOL/L (3.5-5.1); SODIUM LEVEL 133 MMOL/L (136-145)
[2023-06-03 18:35] LABS: MAGNESIUM LEVEL 2.4 MG/DL (1.8-2.4)
[2023-06-03] MEDS: SPIRONOLACTONE 50 MG TAB PO SCH (20:34)
[2023-06-03] MEDS: THIAMINE 100 MG TAB PO SCH (20:34)
[2023-06-04] VITALS (11 sets, daily range): BP systolic 88–110; BP diastolic 52–77; TEMP 96.3–97.2; O2SAT 91–98
[2023-06-04 05:18] LABS: IONIZED CALCIUM 4.5 MG/DL (4.5-5.3)
[2023-06-04 05:54] LABS: BLOOD UREA NITROGEN 20 MG/DL (9-23); CALCIUM LEVEL 9.8 MG/DL (8.5-10.1); CARBON DIOXIDE LEVEL 30 MMOL/L (20-31); CHLORIDE LEVEL 96 MMOL/L (98-107); CREATININE FOR GFR 1.22 MG/DL (0.70-1.30); GLOMERULAR FILTRATION RATE > 60.0 (>60); GLUCOSE, FASTING 99 MG/DL (60-100); MAGNESIUM LEVEL 2.1 MG/DL (1.8-2.4); POTASSIUM SERUM 3.9 MMOL/L (3.5-5.1); SODIUM LEVEL 134 MMOL/L (136-145)
[2023-06-04] MEDS: oxyCODONE 5MG TAB PO PRN ×3 (06:21→18:30)
[2023-06-04] MEDS ORDERED: POTASSIUM CHLORIDE 10MEQ SR TABLET PO ONE (07:30)
[2023-06-04] MEDS: TAMSULOSIN 0.4 MG CAP PO SCH (08:12)
[2023-06-04] MEDS: MAGNESIUM OXIDE 400MG TAB (MAG-OX) PO SCH ×2 (08:12→20:40)
[2023-06-04] MEDS: DAPAGLIFLOZIN PROPANEDIOL 10MG TABLET (FARXIGA) PO SCH (08:12)
[2023-06-04] MEDS: LACTOBACILLUS ACIDOPHILUS CAP (BACID) PO SCH ×4 (08:12→20:39)
[2023-06-04] MEDS: PANTOPRAZOLE 40MG TAB (PROTONIX) PO SCH (08:12)
[2023-06-04] MEDS: MIDODRINE 5 MG TAB PO SCH ×3 (08:12→15:25)
[2023-06-04] MEDS: APIXABAN 5 MG TAB (ELIQUIS) PO SCH ×2 (08:13→20:40)
[2023-06-04] MEDS: FOLIC ACID 1MG TAB PO SCH (08:13)
[2023-06-04] MEDS: MULTIVITAMINS/MINERALS THERAP 1 TAB PO SCH (08:13)
[2023-06-04] MEDS: DULoxetine 30MG CAPSULE (CYMBALTA) PO SCH (08:13)
[2023-06-04] MEDS: MIRALAX *UNIT DOSE* 17GM PACKET PO SCH ×2 (08:13→20:39)
[2023-06-04] MEDS ORDERED: FUROSEMIDE injection 250 MG in D5W 225 ML IV SCH (08:35)
[2023-06-04] MEDS: IPRATROPIUM 0.02% SOLN 0.5MG 2.5ML NEB INH SCH ×4 (08:40→19:13)
[2023-06-04] MEDS: POTASSIUM CHLORIDE 10MEQ SR TABLET PO SCH ×2 (09:55→20:40)
[2023-06-04 18:22] LABS: IONIZED CALCIUM 4.6 MG/DL (4.5-5.3)
[2023-06-04 18:51] LABS: CALCIUM LEVEL 9.9 MG/DL (8.5-10.1); CREATININE FOR GFR 1.38 MG/DL (0.70-1.30); GLOMERULAR FILTRATION RATE 58.8 (>60); POTASSIUM SERUM 4.4 MMOL/L (3.5-5.1)
[2023-06-04] MEDS: THIAMINE 100 MG TAB PO SCH (20:40)
[2023-06-04] MEDS: SPIRONOLACTONE 50 MG TAB PO SCH (20:42)
[2023-06-05] VITALS (9 sets, daily range): BP systolic 87–123; BP diastolic 60–80; TEMP 96.1–97.3; O2SAT 94–99
[2023-06-05 05:44] LABS: IONIZED CALCIUM 4.5 MG/DL (4.5-5.3)
[2023-06-05 06:15] LABS: BLOOD UREA NITROGEN 23 MG/DL (9-23); CALCIUM LEVEL 9.3 MG/DL (8.5-10.1); CARBON DIOXIDE LEVEL 31 MMOL/L (20-31); CHLORIDE LEVEL 96 MMOL/L (98-107); CREATININE FOR GFR 1.28 MG/DL (0.70-1.30); GLOMERULAR FILTRATION RATE > 60.0 (>60); GLUCOSE, FASTING 105 MG/DL (60-100); MAGNESIUM LEVEL 1.9 MG/DL (1.8-2.4); POTASSIUM SERUM 4.6 MMOL/L (3.5-5.1); SODIUM LEVEL 134 MMOL/L (136-145)
[2023-06-05] MEDS: TAMSULOSIN 0.4 MG CAP PO SCH (06:51)
[2023-06-05] MEDS ORDERED: MIDODRINE 5 MG TAB PO PRN (07:50)
[2023-06-05] MEDS: LACTOBACILLUS ACIDOPHILUS CAP (BACID) PO SCH ×4 (08:00→20:20)
[2023-06-05] MEDS: IPRATROPIUM 0.02% SOLN 0.5MG 2.5ML NEB INH SCH ×4 (08:04→19:38)
[2023-06-05] MEDS: POTASSIUM CHLORIDE 10MEQ SR TABLET PO SCH ×2 (09:00→20:22)
[2023-06-05] MEDS: oxyCODONE 5MG TAB PO PRN ×2 (09:26→17:58)
[2023-06-05] MEDS: MAGNESIUM OXIDE 400MG TAB (MAG-OX) PO SCH ×2 (09:27→20:21)
[2023-06-05] MEDS: FOLIC ACID 1MG TAB PO SCH (09:27)
[2023-06-05] MEDS: DAPAGLIFLOZIN PROPANEDIOL 10MG TABLET (FARXIGA) PO SCH (09:27)
[2023-06-05] MEDS: APIXABAN 5 MG TAB (ELIQUIS) PO SCH ×2 (09:27→20:20)
[2023-06-05] MEDS: PANTOPRAZOLE 40MG TAB (PROTONIX) PO SCH (09:28)
[2023-06-05] MEDS: MULTIVITAMINS/MINERALS THERAP 1 TAB PO SCH (09:28)
[2023-06-05] MEDS: DULoxetine 30MG CAPSULE (CYMBALTA) PO SCH (09:28)
[2023-06-05] MEDS: MIRALAX *UNIT DOSE* 17GM PACKET PO SCH ×2 (09:29→20:22)
[2023-06-05] MEDS: FUROSEMIDE 100MG/10ML VIAL IV SCH ×2 (09:29→17:59)
[2023-06-05 17:55] LABS: IONIZED CALCIUM 4.5 MG/DL (4.5-5.3)
[2023-06-05 18:30] LABS: MAGNESIUM LEVEL 1.9 MG/DL (1.8-2.4)
[2023-06-05 18:32] LABS: BLOOD UREA NITROGEN 25 MG/DL (9-23); CALCIUM LEVEL 9.4 MG/DL (8.5-10.1); CARBON DIOXIDE LEVEL 29 MMOL/L (20-31); CHLORIDE LEVEL 95 MMOL/L (98-107); CREATININE FOR GFR 1.23 MG/DL (0.70-1.30); GLOMERULAR FILTRATION RATE > 60.0 (>60); GLUCOSE, FASTING 109 MG/DL (60-100); POTASSIUM SERUM 4.4 MMOL/L (3.5-5.1); SODIUM LEVEL 133 MMOL/L (136-145)
[2023-06-05] MEDS: SPIRONOLACTONE 50 MG TAB PO SCH (20:20)
[2023-06-05] MEDS: THIAMINE 100 MG TAB PO SCH (20:22)
[2023-06-06 04:00] VITALS: BP 106/58; TEMP 97; O2SAT 95
[2023-06-06 06:02] LABS: IONIZED CALCIUM 4.3 MG/DL (4.5-5.3)
[2023-06-06 06:29] LABS: MAGNESIUM LEVEL 1.9 MG/DL (1.8-2.4)
[2023-06-06 06:31] LABS: BLOOD UREA NITROGEN 24 MG/DL (9-23); CALCIUM LEVEL 9.6 MG/DL (8.5-10.1); CARBON DIOXIDE LEVEL 30 MMOL/L (20-31); CHLORIDE LEVEL 96 MMOL/L (98-107); CREATININE FOR GFR 1.23 MG/DL (0.70-1.30); GLOMERULAR FILTRATION RATE > 60.0 (>60); GLUCOSE, FASTING 103 MG/DL (60-100); SODIUM LEVEL 133 MMOL/L (136-145)
[2023-06-06] MEDS: IPRATROPIUM 0.02% SOLN 0.5MG 2.5ML NEB INH SCH ×4 (08:08→20:06)
[2023-06-06 08:30] VITALS: BP 102/72; TEMP 96.2; O2SAT 97
[2023-06-06] MEDS: PANTOPRAZOLE 40MG TAB (PROTONIX) PO SCH (09:35)
[2023-06-06] MEDS: MULTIVITAMINS/MINERALS THERAP 1 TAB PO SCH (09:35)
[2023-06-06] MEDS: DULoxetine 30MG CAPSULE (CYMBALTA) PO SCH (09:35)
[2023-06-06] MEDS: MAGNESIUM OXIDE 400MG TAB (MAG-OX) PO SCH ×2 (09:36→20:20)
[2023-06-06] MEDS: TAMSULOSIN 0.4 MG CAP PO SCH (09:36)
[2023-06-06] MEDS: POTASSIUM CHLORIDE 10MEQ SR TABLET PO SCH ×2 (09:36→20:11)
[2023-06-06] MEDS: FOLIC ACID 1MG TAB PO SCH (09:36)
[2023-06-06] MEDS: LACTOBACILLUS ACIDOPHILUS CAP (BACID) PO SCH ×4 (09:37→20:19)
[2023-06-06] MEDS: APIXABAN 5 MG TAB (ELIQUIS) PO SCH ×2 (09:37→20:19)
[2023-06-06] MEDS: MIRALAX *UNIT DOSE* 17GM PACKET PO SCH ×2 (09:37→20:11)
[2023-06-06] MEDS: DAPAGLIFLOZIN PROPANEDIOL 10MG TABLET (FARXIGA) PO SCH (09:37)
[2023-06-06] MEDS: FUROSEMIDE 100MG/10ML VIAL IV SCH ×2 (09:37→17:02)
[2023-06-06] MEDS: oxyCODONE 5MG TAB PO PRN ×2 (09:52→20:21)
[2023-06-06 11:55] VITALS: BP 104/78; TEMP 97.4; O2SAT 96
[2023-06-06 16:00] VITALS: BP 106/75; TEMP 97.5; O2SAT 94
[2023-06-06 18:31] LABS: IONIZED CALCIUM 4.3 MG/DL (4.5-5.3)
[2023-06-06 18:42] LABS: MAGNESIUM LEVEL 1.8 MG/DL (1.8-2.4)
[2023-06-06 18:43] LABS: BLOOD UREA NITROGEN 25 MG/DL (9-23); CALCIUM LEVEL 9.8 MG/DL (8.5-10.1); CARBON DIOXIDE LEVEL 31 MMOL/L (20-31); CHLORIDE LEVEL 96 MMOL/L (98-107); CREATININE FOR GFR 1.27 MG/DL (0.70-1.30); GLOMERULAR FILTRATION RATE > 60.0 (>60); GLUCOSE, FASTING 105 MG/DL (60-100); POTASSIUM SERUM 4.5 MMOL/L (3.5-5.1); SODIUM LEVEL 134 MMOL/L (136-145)
[2023-06-06 19:41] VITALS: BP 94/70; TEMP 96.8; O2SAT 85
[2023-06-06] MEDS: SPIRONOLACTONE 50 MG TAB PO SCH (20:19)
[2023-06-06] MEDS: THIAMINE 100 MG TAB PO SCH (20:20)
[2023-06-07] VITALS (9 sets, daily range): BP systolic 90–108; BP diastolic 62–80; TEMP 96.6–98; O2SAT 95–99
[2023-06-07 05:12] LABS: IONIZED CALCIUM 4.2 MG/DL (4.5-5.3)
[2023-06-07 05:39] LABS: MAGNESIUM LEVEL 1.8 MG/DL (1.8-2.4)
[2023-06-07 05:58] LABS: CALCIUM LEVEL 9.7 MG/DL (8.5-10.1); CREATININE FOR GFR 1.37 MG/DL (0.70-1.30); GLOMERULAR FILTRATION RATE 59.3 (>60); POTASSIUM SERUM 5.3 MMOL/L (3.5-5.1)
[2023-06-07] MEDS ORDERED: PATIROMER SORBITEX CALCIUM 8.4 GM POWDER PACKET (VELTASSA) PO ONE (06:25)
[2023-06-07] MEDS: IPRATROPIUM 0.02% SOLN 0.5MG 2.5ML NEB INH SCH ×2 (07:27→11:30)
[2023-06-07] MEDS: FUROSEMIDE 100MG/10ML VIAL IV SCH ×2 (08:06→17:00)
[2023-06-07] MEDS: FOLIC ACID 1MG TAB PO SCH (08:07)
[2023-06-07] MEDS: LACTOBACILLUS ACIDOPHILUS CAP (BACID) PO SCH ×4 (08:07→20:13)
[2023-06-07] MEDS: DAPAGLIFLOZIN PROPANEDIOL 10MG TABLET (FARXIGA) PO SCH (08:07)
[2023-06-07] MEDS: PANTOPRAZOLE 40MG TAB (PROTONIX) PO SCH (08:07)
[2023-06-07] MEDS: TAMSULOSIN 0.4 MG CAP PO SCH (08:07)
[2023-06-07] MEDS: MAGNESIUM OXIDE 400MG TAB (MAG-OX) PO SCH ×2 (08:07→20:13)
[2023-06-07] MEDS: APIXABAN 5 MG TAB (ELIQUIS) PO SCH ×2 (08:07→20:12)
[2023-06-07] MEDS: MIRALAX *UNIT DOSE* 17GM PACKET PO SCH ×2 (08:08→20:13)
[2023-06-07] MEDS: DULoxetine 30MG CAPSULE (CYMBALTA) PO SCH (08:08)
[2023-06-07] MEDS: MULTIVITAMINS/MINERALS THERAP 1 TAB PO SCH (08:08)
[2023-06-07] MEDS: oxyCODONE 5MG TAB PO PRN (08:50)
[2023-06-07 18:49] LABS: BLOOD UREA NITROGEN 24 MG/DL (9-23); CALCIUM LEVEL 10.5 MG/DL (8.5-10.1); CARBON DIOXIDE LEVEL 33 MMOL/L (20-31); CHLORIDE LEVEL 90 MMOL/L (98-107); CREATININE FOR GFR 1.32 MG/DL (0.70-1.30); GLOMERULAR FILTRATION RATE > 60.0 (>60); GLUCOSE, FASTING 113 MG/DL (60-100); MAGNESIUM LEVEL 1.8 MG/DL (1.8-2.4); POTASSIUM SERUM 3.5 MMOL/L (3.5-5.1); SODIUM LEVEL 134 MMOL/L (136-145)
[2023-06-07] MEDS: SPIRONOLACTONE 50 MG TAB PO SCH (20:13)
[2023-06-07] MEDS: THIAMINE 100 MG TAB PO SCH (20:13)
[2023-06-08] VITALS (8 sets, daily range): BP systolic 84–102; BP diastolic 50–70; TEMP 97–98.4; O2SAT 91–100
[2023-06-08] MEDS: oxyCODONE 5MG TAB PO PRN (03:47)
[2023-06-08 06:47] LABS: BLOOD UREA NITROGEN 24 MG/DL (9-23); CALCIUM LEVEL 9.3 MG/DL (8.5-10.1); CARBON DIOXIDE LEVEL 33 MMOL/L (20-31); CHLORIDE LEVEL 93 MMOL/L (98-107); CREATININE FOR GFR 1.28 MG/DL (0.70-1.30); GLOMERULAR FILTRATION RATE > 60.0 (>60); GLUCOSE, FASTING 103 MG/DL (60-100); POTASSIUM SERUM 3.5 MMOL/L (3.5-5.1); SODIUM LEVEL 133 MMOL/L (136-145)
[2023-06-08] MEDS: FUROSEMIDE 100MG/10ML VIAL IV SCH ×3 (08:19→17:40)
[2023-06-08] MEDS: LACTOBACILLUS ACIDOPHILUS CAP (BACID) PO SCH ×4 (09:50→20:13)
[2023-06-08] MEDS: MIRALAX *UNIT DOSE* 17GM PACKET PO SCH ×2 (09:50→20:13)
[2023-06-08] MEDS: APIXABAN 5 MG TAB (ELIQUIS) PO SCH ×2 (09:50→20:13)
[2023-06-08] MEDS: TAMSULOSIN 0.4 MG CAP PO SCH (09:51)
[2023-06-08] MEDS: MULTIVITAMINS/MINERALS THERAP 1 TAB PO SCH (09:51)
[2023-06-08] MEDS: DULoxetine 30MG CAPSULE (CYMBALTA) PO SCH (09:51)
[2023-06-08] MEDS: PANTOPRAZOLE 40MG TAB (PROTONIX) PO SCH (09:51)
[2023-06-08] MEDS: DAPAGLIFLOZIN PROPANEDIOL 10MG TABLET (FARXIGA) PO SCH (09:52)
[2023-06-08] MEDS: POTASSIUM CHLORIDE 10MEQ SR TABLET PO SCH (09:54)
[2023-06-08] MEDS: MAGNESIUM OXIDE 400MG TAB (MAG-OX) PO SCH ×2 (09:55→20:13)
[2023-06-08] MEDS: FOLIC ACID 1MG TAB PO SCH (09:55)
[2023-06-08] MEDS: LIDOCAINE 5% (LIDODERM) PATCH TD SCH (10:33)
[2023-06-08] MEDS: ACETAMINOPHEN TAB 650MG DOSE (2X325MG) PO PRN (10:33)
[2023-06-08 18:50] LABS: IONIZED CALCIUM 4.4 MG/DL (4.5-5.3)
[2023-06-08 18:59] LABS: MAGNESIUM LEVEL 1.8 MG/DL (1.8-2.4)
[2023-06-08 19:00] LABS: BLOOD UREA NITROGEN 24 MG/DL (9-23); CALCIUM LEVEL 9.5 MG/DL (8.5-10.1); CARBON DIOXIDE LEVEL 32 MMOL/L (20-31); CHLORIDE LEVEL 94 MMOL/L (98-107); CREATININE FOR GFR 1.18 MG/DL (0.70-1.30); GLOMERULAR FILTRATION RATE > 60.0 (>60); GLUCOSE, FASTING 108 MG/DL (60-100); POTASSIUM SERUM 3.6 MMOL/L (3.5-5.1); SODIUM LEVEL 135 MMOL/L (136-145)
[2023-06-08] MEDS: THIAMINE 100 MG TAB PO SCH (20:13)
[2023-06-08] MEDS: SPIRONOLACTONE 50 MG TAB PO SCH (20:13)
[2023-06-09] MEDS: oxyCODONE 5MG TAB PO PRN (02:53)
[2023-06-09 03:26] VITALS: BP 94/58; TEMP 99.3; O2SAT 92
[2023-06-09 05:16] LABS: IONIZED CALCIUM 4.4 MG/DL (4.5-5.3)
[2023-06-09 05:59] LABS: BLOOD UREA NITROGEN 23 MG/DL (9-23); CARBON DIOXIDE LEVEL 34 MMOL/L (20-31); CHLORIDE LEVEL 95 MMOL/L (98-107); CREATININE FOR GFR 1.22 MG/DL (0.70-1.30); GLOMERULAR FILTRATION RATE > 60.0 (>60); GLUCOSE, FASTING 104 MG/DL (60-100); POTASSIUM SERUM 3.5 MMOL/L (3.5-5.1); SODIUM LEVEL 136 MMOL/L (136-145)
[2023-06-09 06:04] LABS: MAGNESIUM LEVEL 1.6 MG/DL (1.8-2.4)
[2023-06-09 08:00] VITALS: BP 99/70; O2SAT 98
[2023-06-09 08:54] VITALS: BP 104/64
[2023-06-09] MEDS: DULoxetine 30MG CAPSULE (CYMBALTA) PO SCH (08:54)
[2023-06-09] MEDS: APIXABAN 5 MG TAB (ELIQUIS) PO SCH (08:54)
[2023-06-09] MEDS: MIRALAX *UNIT DOSE* 17GM PACKET PO SCH (08:54)
[2023-06-09] MEDS: MAGNESIUM OXIDE 400MG TAB (MAG-OX) PO SCH (08:54)
[2023-06-09] MEDS: PANTOPRAZOLE 40MG TAB (PROTONIX) PO SCH (08:54)
[2023-06-09] MEDS: TAMSULOSIN 0.4 MG CAP PO SCH (08:55)
[2023-06-09] MEDS: DAPAGLIFLOZIN PROPANEDIOL 10MG TABLET (FARXIGA) PO SCH (08:55)
[2023-06-09] MEDS: MULTIVITAMINS/MINERALS THERAP 1 TAB PO SCH (08:55)
[2023-06-09] MEDS: POTASSIUM CHLORIDE 10MEQ SR TABLET PO SCH (08:55)
[2023-06-09] MEDS: LACTOBACILLUS ACIDOPHILUS CAP (BACID) PO SCH ×2 (08:55→13:48)
[2023-06-09] MEDS: LIDOCAINE 5% (LIDODERM) PATCH TD SCH (08:55)
[2023-06-09] MEDS: FOLIC ACID 1MG TAB PO SCH (08:55)
[2023-06-09] MEDS ORDERED: TORSEMIDE 100 MG TAB PO SCH (09:00)
[2023-06-09] MEDS ORDERED: MAGN400T2 PO (09:02)
[2023-06-09] MEDS ORDERED: TORS100T PO (09:02)
[2023-06-09] MEDS ORDERED: VITMTA PO (09:02)
[2023-06-09 11:58] VITALS: BP 95/76; TEMP 98.6; O2SAT 95
== END 2023-06-09 15:29 | disposition home or self-care (01) | DRG 194 ==
LOC: EDBD 01:25 → M ED 01:25 → M ED INP 09:23 → M ICU 17:05 → M MSPAV 05-31 20:00 → M PCU 06-03 08:53
PROVIDERS: ADMIT Student in an Organized Health Care Education/Training Program; ATTEND General Practice
DX: I50.23 Acute on chronic systolic (congestive) heart failure (principal); I47.20 Ventricular tachycardia, unspecified; J18.9 Pneumonia, unspecified organism; I27.20 Pulmonary hypertension, unspecified; R18.8 Other ascites; E83.42 Hypomagnesemia; I42.6 Alcoholic cardiomyopathy; Z79.01 Long term (current) use of anticoagulants; Z95.2 Presence of prosthetic heart valve; I08.0 Rheumatic disorders of both mitral and aortic valves; F32.A Depression, unspecified; Z66 Do not resuscitate; R91.8 Other nonspecific abnormal finding of lung field; F17.200 Nicotine dependence, unspecified, uncomplicated; K59.00 Constipation, unspecified; K42.9 Umbilical hernia without obstruction or gangrene; F10.20 Alcohol dependence, uncomplicated; J45.909 Unspecified asthma, uncomplicated; Z95.810 Presence of automatic (implantable) cardiac defibrillator; Z90.49 Acquired absence of other specified parts of digestive tract; Z86.711 Personal history of pulmonary embolism; Z20.822 Contact with and (suspected) exposure to COVID-19; Z79.899 Other long term (current) drug therapy

== ENCOUNTER 2023-06-14 10:59 | Inpatient (IN) | payer MEDICARE, OTHER ==
[~2023-06-14] VITALS: Ht 167.6 cm; Wt 74.9 kg
[~2023-06-14 10:59] MED LIST changes: +CARV3.12 PO; +JARD1TAB PO; +LACT10SO3 PO; +MIDO5TA PO; +SPIR50TA4 PO; +TORS100T PO
[2023-06-14 12:37] LABS: VENOUS BASE EXCESS 0.1 (-2.0-2.0); VENOUS HCO3 25.7 MMOL/L (23.0-27.0); VENOUS O2 SATURATION 27.8 % (60.0-80.0); VENOUS PARTIAL PRESSURE CO2 45.6 mmHg (38.0-50.0); VENOUS PARTIAL PRESSURE O2 22.2 mmHg (30.0-50.0); VENOUS PH 7.369 UNITS (7.330-7.430); VENOUS STANDARD HCO3 22.9 MMOL/L; VENOUS TOTAL CO2 27.1 MMOL/L (24.0-28.0)
[2023-06-14 12:42] LABS: BASO # 0.1 10^3/uL (0.0-0.2); BASO % 0.9 % (0.0-1.0); EOS # 0.1 10^3/uL (0.0-0.5); EOS % 0.5 % (0.0-3.0); HEMATOCRIT 39.3 % (42.0-52.0); HEMOGLOBIN 12.9 g/dl (13.5-17.5); LYMPH # 1.6 10^3/uL (1.5-5.0); LYMPH % 13.8 % (24.0-44.0); MEAN CORPUSCULAR HEMOGLOBIN 26.4 pg (27.0-33.0); MEAN CORPUSCULAR HGB CONC 32.8 g/dl (32.0-36.5); MEAN CORPUSCULAR VOLUME 80.4 fl (80.0-96.0); MONO # 1.1 10^3/uL (0.0-0.8); MONO % 9.1 % (2.0-8.0); NEUTROPHILS # 8.8 10^3/uL (1.5-8.5); NEUTROPHILS % 75.1 % (36.0-66.0); PLATELET COUNT, AUTOMATED 299 10^3/uL (150-450); RED BLOOD COUNT 4.89 10^6/uL (4.30-6.10); WHITE BLOOD COUNT 11.7 10^3/uL (4.0-10.0)
[2023-06-14 12:57] LABS: INR 1.79; PROTHROMBIN TIME 20.3 SECONDS (12.5-14.5)
[2023-06-14 15:02] LABS: ALBUMIN 3.1 G/DL (3.2-5.2); ALKALINE PHOSPHATASE 128 U/L (46-116); ALT/SGPT 9 U/L (7.0-40); AST/SGOT 20 U/L (<34); BILIRUBIN,DIRECT 1.3 MG/DL (<0.4); BILIRUBIN,TOTAL 2.3 MG/DL (0.3-1.2); BLOOD UREA NITROGEN 29 MG/DL (9-23); CALCIUM LEVEL 9.4 MG/DL (8.5-10.1); CARBON DIOXIDE LEVEL 24 MMOL/L (20-31); CHLORIDE LEVEL 92 MMOL/L (98-107); CREATININE FOR GFR 0.98 MG/DL (0.70-1.30); GLOMERULAR FILTRATION RATE > 60.0 (>60); GLUCOSE, FASTING 99 MG/DL (60-100); MAGNESIUM LEVEL 1.7 MG/DL (1.8-2.4); POTASSIUM SERUM 3.7 MMOL/L (3.5-5.1); SODIUM LEVEL 128 MMOL/L (136-145); THYROID STIMULATING HORMONE 12.468 uIU/ML (0.55-4.78); TOTAL PROTEIN 6.7 G/DL (5.7-8.2)
[2023-06-14] MEDS ORDERED: MAG SULF 1GM/100ML (MAG RUN) 1 GM in IV 1 EA IV ONE ×2 (15:20→17:00)
[2023-06-14] MEDS ORDERED: ISOVUE-370 76% 100ML VIAL As Ordered ONE ×2 (15:22→17:30)
[2023-06-14 15:43] LABS: THYROXINE (T4) 7.6 UG/DL (4.5-10.9)
[2023-06-14] MEDS ORDERED: ACETAMINOPHEN TAB 650MG DOSE (2X325MG) PO PRN (16:25)
[2023-06-14] MEDS ORDERED: MAALOX 30 ML SUSP *UDC PO PRN (16:25)
[2023-06-14] MEDS ORDERED: FUROSEMIDE 100MG/10ML VIAL IV SCH (17:00)
[2023-06-14 17:09] LABS: OSMOLALITY SERUM 270 MOSM/KG (275-295)
[2023-06-14] MEDS ORDERED: CARV3.12 PO (17:13)
[2023-06-14] MEDS ORDERED: SPIR-10 PO (17:13)
[2023-06-14] MEDS ORDERED: LACT10SO3 PO (17:15)
[2023-06-14] MEDS ORDERED: HOME MED LIST COMPLETE! XX SCH (17:15)
[2023-06-14 17:16] LABS: PROCALCITONIN 0.69 ng/ml
[2023-06-14] MEDS ORDERED: LACTULOSE 20GM/30ML SYRUP UDC PO PRN (17:30)
[2023-06-14 18:03] LABS: CPK CREATINE PHOSPHOKINASE 22 U/L (46-171)
[2023-06-14 18:08] LABS: BLOOD UREA NITROGEN 31 MG/DL (9-23); CALCIUM LEVEL 9.5 MG/DL (8.5-10.1); CARBON DIOXIDE LEVEL 29 MMOL/L (20-31); CHLORIDE LEVEL 93 MMOL/L (98-107); CREATININE FOR GFR 1.06 MG/DL (0.70-1.30); GLOMERULAR FILTRATION RATE > 60.0 (>60); GLUCOSE, FASTING 146 MG/DL (60-100); SODIUM LEVEL 132 MMOL/L (136-145)
[2023-06-14 18:43] VITALS: BP 90/46; TEMP 97; O2SAT 98
[2023-06-14 18:58] VITALS: BP 102/52
[2023-06-14] MEDS: oxyCODONE 5MG TAB PO PRN (18:58)
[2023-06-14 19:05] LABS: CPK CREATINE PHOSPHOKINASE 25 U/L (46-171)
[2023-06-14 19:08] LABS: MB/CK RELATIVE INDEX 4.54 (< OR =4)
[2023-06-14 19:20] LABS: CK-MB VALUE MASS < 1.0 NG/ML (<3.6)
[2023-06-14] MEDS: CARVedilol 3.125 MG TAB PO SCH (21:00)
[2023-06-14] MEDS ORDERED: SPIRONOLACTONE 25 MG TAB PO SCH (21:00)
[2023-06-14 21:40] LABS: CK-MB VALUE MASS < 1.0 NG/ML (<3.6)
[2023-06-14 21:43] LABS: CPK CREATINE PHOSPHOKINASE 19 U/L (46-171); MB/CK RELATIVE INDEX 5.26 (< OR =4)
[2023-06-14] MEDS ORDERED: FUROSEMIDE 40MG/4ML VIAL IV ONE (22:00)
[2023-06-14 22:45] VITALS: O2SAT 97
[2023-06-14 22:53] LABS: ABG BASE EXCESS 1.5 (-2.0-2.0); ABG HCO3 24.4 MMOL/L (22.0-26.0); ABG O2 SATURATION 98.2 % (95.0-99.0); ABG PARTIAL PRESSURE CO2 33.2 mmHg (35.0-45.0); ABG PARTIAL PRESSURE O2 108.7 mmHg (75.0-100.0); ABG STANDARD HCO3 25.8 MMOL/L. (22.0-26.0); ABG TOTAL CO2 25.5 MMOL/L (22.0-29.0); ABG pH (ARTERIAL) 7.485 UNITS (7.350-7.450)
[2023-06-14] MEDS: APIXABAN 5 MG TAB (ELIQUIS) PO SCH (23:00)
[2023-06-14] MEDS ORDERED: cefTRIAXone SOD 1 GM in D5W MINI-BAG PLUS 50 ML IV SCH (23:00)
[2023-06-14] MEDS: DOXYCYCLINE HYCLATE 100MG TABLET PO SCH (23:01)
[2023-06-14] MEDS: THIAMINE 100 MG TAB PO SCH (23:01)
[2023-06-14] MEDS: MAGNESIUM OXIDE 400MG TAB (MAG-OX) PO SCH (23:02)
[2023-06-14 23:47] VITALS: TEMP 98.5; O2SAT 96
[2023-06-15] VITALS (23 sets, daily range): BP systolic 80–118; BP diastolic 42–93; TEMP 97.5–98.2; O2SAT 94–100
[2023-06-15 00:39] LABS: BLOOD UREA NITROGEN 30 MG/DL (9-23); CALCIUM LEVEL 9.1 MG/DL (8.5-10.1); CARBON DIOXIDE LEVEL 23 MMOL/L (20-31); CHLORIDE LEVEL 93 MMOL/L (98-107); CREATININE FOR GFR 1.09 MG/DL (0.70-1.30); GLOMERULAR FILTRATION RATE > 60.0 (>60); GLUCOSE, FASTING 117 MG/DL (60-100); POTASSIUM SERUM 3.9 MMOL/L (3.5-5.1); SODIUM LEVEL 127 MMOL/L (136-145)
[2023-06-15] MEDS ORDERED: NOREPINEPHRINE 4MG IN D5 250ML 4 MG in IV 1 EA IV SCH ×2 (00:45)
[2023-06-15 02:30] LABS: CK-MB VALUE MASS < 1.0 NG/ML (<3.6); CPK CREATINE PHOSPHOKINASE 16 U/L (46-171); MB/CK RELATIVE INDEX 6.25 (< OR =4)
[2023-06-15] MEDS: oxyCODONE 5MG TAB PO PRN ×2 (02:52→20:08)
[2023-06-15 05:11] LABS: BASO # 0.1 10^3/uL (0.0-0.2); BASO % 0.7 % (0.0-1.0); EOS # 0.1 10^3/uL (0.0-0.5); EOS % 0.4 % (0.0-3.0); HEMATOCRIT 33.7 % (42.0-52.0); HEMOGLOBIN 11.5 g/dl (13.5-17.5); LYMPH # 1.4 10^3/uL (1.5-5.0); LYMPH % 11.3 % (24.0-44.0); MEAN CORPUSCULAR HEMOGLOBIN 26.5 pg (27.0-33.0); MEAN CORPUSCULAR HGB CONC 34.1 g/dl (32.0-36.5); MEAN CORPUSCULAR VOLUME 77.6 fl (80.0-96.0); MONO # 1.1 10^3/uL (0.0-0.8); MONO % 9.2 % (2.0-8.0); NEUTROPHILS # 9.5 10^3/uL (1.5-8.5); NEUTROPHILS % 77.8 % (36.0-66.0); PLATELET COUNT, AUTOMATED 262 10^3/uL (150-450); RED BLOOD COUNT 4.34 10^6/uL (4.30-6.10); WHITE BLOOD COUNT 12.2 10^3/uL (4.0-10.0)
[2023-06-15 05:34] LABS: BLOOD UREA NITROGEN 31 MG/DL (9-23); CALCIUM LEVEL 9.1 MG/DL (8.5-10.1); CARBON DIOXIDE LEVEL 23 MMOL/L (20-31); CHLORIDE LEVEL 92 MMOL/L (98-107); CREATININE FOR GFR 1.06 MG/DL (0.70-1.30); GLOMERULAR FILTRATION RATE > 60.0 (>60); GLUCOSE, FASTING 117 MG/DL (60-100); MAGNESIUM LEVEL 2.1 MG/DL (1.8-2.4); POTASSIUM SERUM 3.8 MMOL/L (3.5-5.1); SODIUM LEVEL 125 MMOL/L (136-145)
[2023-06-15] MEDS: MAGNESIUM OXIDE 400MG TAB (MAG-OX) PO SCH ×2 (08:52→20:07)
[2023-06-15] MEDS: DULoxetine 30MG CAPSULE (CYMBALTA) PO SCH (08:53)
[2023-06-15] MEDS: FOLIC ACID 1MG TAB PO SCH (08:53)
[2023-06-15] MEDS: MIDODRINE 5 MG TAB PO SCH ×3 (08:53→16:35)
[2023-06-15] MEDS: MULTIVITAMINS/MINERALS THERAP 1 TAB PO SCH (08:53)
[2023-06-15] MEDS: TAMSULOSIN 0.4 MG CAP PO SCH (08:53)
[2023-06-15] MEDS: APIXABAN 5 MG TAB (ELIQUIS) PO SCH ×2 (08:53→20:07)
[2023-06-15] MEDS: POTASSIUM CHLORIDE 10MEQ SR TABLET PO SCH (08:53)
[2023-06-15] MEDS: PANTOPRAZOLE 40MG TAB (PROTONIX) PO SCH (08:53)
[2023-06-15] MEDS: CARVedilol 3.125 MG TAB PO SCH (08:58)
[2023-06-15] MEDS: DOXYCYCLINE HYCLATE 100MG TABLET PO SCH ×2 (09:12→20:07)
[2023-06-15] MEDS ORDERED: FUROSEMIDE 40MG/4ML VIAL IV ONE (11:30)
[2023-06-15] MEDS: CEFDINIR 300 MG CAP (OMNICEF) PO SCH ×2 (11:56→20:07)
[2023-06-15 15:14] LABS: BLOOD UREA NITROGEN 17 MG/DL (9-23); CALCIUM LEVEL 8.6 MG/DL (8.5-10.1); CARBON DIOXIDE LEVEL 20 MMOL/L (20-31); CHLORIDE LEVEL 93 MMOL/L (98-107); CREATININE FOR GFR 1.04 MG/DL (0.70-1.30); GLOMERULAR FILTRATION RATE > 60.0 (>60); GLUCOSE, FASTING 148 MG/DL (60-100); POTASSIUM SERUM 4.6 MMOL/L (3.5-5.1); SODIUM LEVEL 123 MMOL/L (136-145)
[2023-06-15] MEDS ORDERED: FUROSEMIDE 100MG/10ML VIAL IV ONE (15:40)
[2023-06-15 18:54] LABS: APPEARANCE, URINE HAZY (CLEAR); BACTERIA, URINE AUTO NEGATIVE (NEGATIVE); BILIRUBIN, URINE AUTO NEGATIVE (NEGATIVE); BLOOD, URINE BLOOD NEGATIVE (NEGATIVE); COLOR, URINE YELLOW (YELLOW); GLUCOSE, URINE (UA) AUTO NEGATIVE (NEGATIVE); KETONE, URINE AUTO NEGATIVE (NEGATIVE); LEUKOCYTE ESTERASE, URINE AUTO NEGATIVE (NEGATIVE); MUCUS, URINE SMALL (NEGATIVE); NITRITE, URINE AUTO NEGATIVE (NEGATIVE); PROTEIN, URINE AUTO NEGATIVE (NEGATIVE); RBC, URINE AUTO 1 /HPF (0-3); SPECIFIC GRAVITY URINE AUTO 1.015 (1.002-1.035); SQUAMOUS EPITHELIAL CELL UR AU 1 /HPF (0-6); UROBILINOGEN, URINE AUTO 0.2 mg/dL (0.0-2.0); WBC, URINE AUTO 1 /HPF (0-3)
[2023-06-15 19:08] LABS: OSMOLALITY URINE 334 MOSM/KG (50-1400)
[2023-06-15] MEDS: THIAMINE 100 MG TAB PO SCH (20:07)
[2023-06-15] MEDS: METOPROLOL TART 25 MG TABLET PO SCH (20:11)
[2023-06-15] MEDS ORDERED: ONDANSETRON 4MG 2ML VIAL IV ONE (20:20)
[2023-06-16] VITALS (13 sets, daily range): BP systolic 79–105; BP diastolic 54–76; TEMP 97–98.1; O2SAT 95–100
[2023-06-16] MEDS ORDERED: LIDOCAINE 5% (LIDODERM) PATCH TD ONE
[2023-06-16 04:59] LABS: BASO # 0.1 10^3/uL (0.0-0.2); BASO % 0.4 % (0.0-1.0); EOS # 0.1 10^3/uL (0.0-0.5); EOS % 0.9 % (0.0-3.0); HEMATOCRIT 33.3 % (42.0-52.0); HEMOGLOBIN 11.1 g/dl (13.5-17.5); LYMPH # 1.4 10^3/uL (1.5-5.0); LYMPH % 11.3 % (24.0-44.0); MEAN CORPUSCULAR HEMOGLOBIN 26.1 pg (27.0-33.0); MEAN CORPUSCULAR HGB CONC 33.3 g/dl (32.0-36.5); MEAN CORPUSCULAR VOLUME 78.4 fl (80.0-96.0); MONO # 1.4 10^3/uL (0.0-0.8); MONO % 11.1 % (2.0-8.0); NEUTROPHILS # 9.6 10^3/uL (1.5-8.5); NEUTROPHILS % 75.7 % (36.0-66.0); PLATELET COUNT, AUTOMATED 252 10^3/uL (150-450); RED BLOOD COUNT 4.25 10^6/uL (4.30-6.10); WHITE BLOOD COUNT 12.7 10^3/uL (4.0-10.0)
[2023-06-16] MEDS: MAGNESIUM OXIDE 400MG TAB (MAG-OX) PO SCH ×2 (08:13→20:35)
[2023-06-16] MEDS: POTASSIUM CHLORIDE 10MEQ SR TABLET PO SCH (08:14)
[2023-06-16] MEDS: CEFDINIR 300 MG CAP (OMNICEF) PO SCH ×2 (08:14→20:35)
[2023-06-16] MEDS: APIXABAN 5 MG TAB (ELIQUIS) PO SCH ×2 (08:14→20:35)
[2023-06-16] MEDS: MULTIVITAMINS/MINERALS THERAP 1 TAB PO SCH (08:14)
[2023-06-16] MEDS: PANTOPRAZOLE 40MG TAB (PROTONIX) PO SCH (08:15)
[2023-06-16] MEDS: METOPROLOL TART 25 MG TABLET PO SCH ×2 (08:15→21:00)
[2023-06-16] MEDS: FOLIC ACID 1MG TAB PO SCH (08:15)
[2023-06-16] MEDS: DULoxetine 30MG CAPSULE (CYMBALTA) PO SCH (08:15)
[2023-06-16] MEDS: TAMSULOSIN 0.4 MG CAP PO SCH (08:15)
[2023-06-16] MEDS: MIDODRINE 5 MG TAB PO SCH ×3 (08:15→16:53)
[2023-06-16] MEDS: DOXYCYCLINE HYCLATE 100MG TABLET PO SCH ×2 (08:20→20:35)
[2023-06-16] MEDS ORDERED: DOBUTamine HCL 500,000 MCG in IV 1 EA IV SCH (09:25)
[2023-06-16] MEDS ORDERED: FUROSEMIDE injection 250 MG in D5W 225 ML IV SCH (12:00)
[2023-06-16] MEDS: oxyCODONE 5MG TAB PO PRN ×2 (12:06→20:42)
[2023-06-16 13:30] LABS: SODIUM,RANDOM URINE 19.99999 MEQ/L
[2023-06-16] MEDS: THIAMINE 100 MG TAB PO SCH (20:35)
[2023-06-16] MEDS ORDERED: AMIODARONE HCL 360 MG in IV 1 EA IV SCH (22:20)
[2023-06-16] MEDS ORDERED: AMIODARONE HCL 150 MG in IV 1 EA IV ONE ×2 (22:30→22:40)
[2023-06-16] MEDS: AMIODARONE 200 MG TAB (PACERONE) PO SCH (23:19)
[2023-06-17] VITALS (20 sets, daily range): BP systolic 78–118; BP diastolic 48–76; TEMP 96.8–97.5; O2SAT 88–100
[2023-06-17 04:23] LABS: BASO # 0.1 10^3/uL (0.0-0.2); BASO % 0.6 % (0.0-1.0); EOS # 0.1 10^3/uL (0.0-0.5); EOS % 0.9 % (0.0-3.0); HEMATOCRIT 32.4 % (42.0-52.0); HEMOGLOBIN 10.8 g/dl (13.5-17.5); LYMPH # 1.2 10^3/uL (1.5-5.0); MEAN CORPUSCULAR HEMOGLOBIN 26.1 pg (27.0-33.0); MEAN CORPUSCULAR HGB CONC 33.3 g/dl (32.0-36.5); MEAN CORPUSCULAR VOLUME 78.3 fl (80.0-96.0); MONO % 9.6 % (2.0-8.0); NEUTROPHILS # 8.2 10^3/uL (1.5-8.5); NEUTROPHILS % 77.2 % (36.0-66.0); PLATELET COUNT, AUTOMATED 236 10^3/uL (150-450); RED BLOOD COUNT 4.14 10^6/uL (4.30-6.10); WHITE BLOOD COUNT 10.6 10^3/uL (4.0-10.0)
[2023-06-17] MEDS: METOPROLOL TART 25 MG TABLET PO SCH (09:00)
[2023-06-17] MEDS: CEFDINIR 300 MG CAP (OMNICEF) PO SCH ×2 (09:41→20:54)
[2023-06-17] MEDS: FOLIC ACID 1MG TAB PO SCH (09:42)
[2023-06-17] MEDS: MULTIVITAMINS/MINERALS THERAP 1 TAB PO SCH (09:42)
[2023-06-17] MEDS: DOXYCYCLINE HYCLATE 100MG TABLET PO SCH ×2 (09:42→20:55)
[2023-06-17] MEDS: POTASSIUM CHLORIDE 10MEQ SR TABLET PO SCH (09:42)
[2023-06-17] MEDS: MAGNESIUM OXIDE 400MG TAB (MAG-OX) PO SCH ×2 (09:42→20:40)
[2023-06-17] MEDS: MIDODRINE 5 MG TAB PO SCH (09:47)
[2023-06-17] MEDS: DULoxetine 30MG CAPSULE (CYMBALTA) PO SCH (09:48)
[2023-06-17] MEDS: TAMSULOSIN 0.4 MG CAP PO SCH (09:48)
[2023-06-17] MEDS: PANTOPRAZOLE 40MG TAB (PROTONIX) PO SCH (09:48)
[2023-06-17] MEDS: AMIODARONE 200 MG TAB (PACERONE) PO SCH ×2 (09:48→20:54)
[2023-06-17] MEDS: APIXABAN 5 MG TAB (ELIQUIS) PO SCH ×2 (09:48→20:54)
[2023-06-17] MEDS: oxyCODONE 5MG TAB PO PRN ×2 (09:50→17:44)
[2023-06-17] MEDS: METOPROLOL TART 12.5 MG PER 1/2 TAB PO SCH ×2 (11:34→21:00)
[2023-06-17] MEDS: MIDODRINE 2.5 MG TAB PO SCH ×2 (11:34→16:21)
[2023-06-17 11:35] LABS: BLOOD UREA NITROGEN 36 MG/DL (7-21); CREATININE FOR GFR 1.3 MG/DL (0.7-1.5); GLOMERULAR FILTRATION RATE > 60.0 (>60); GLUCOSE, FASTING 94 MG/DL (70-99); SODIUM LEVEL 126 MEQ/L (134-153)
[2023-06-17 11:36] LABS: CALCIUM LEVEL 9.6 MG/DL (8.4-10.2); CARBON DIOXIDE LEVEL 20 MEQ/L (22-30); CHLORIDE LEVEL 89 MEQ/L (98-107); POTASSIUM SERUM 4.5 MEQ/L (3.6-5.0)
[2023-06-17] MEDS: DAPAGLIFLOZIN PROPANEDIOL 10MG TABLET (FARXIGA) PO SCH (11:37)
[2023-06-17] MEDS ORDERED: LIDOCAINE 2% 5ML JELLY UROJET TOP STA (12:44)
[2023-06-17] MEDS ORDERED: fentaNYL 100 MCG/2 ML INJECTION IV PRN (13:50)
[2023-06-17] MEDS ORDERED: LIDOCAINE 5% (LIDODERM) PATCH TD ONE ×2 (14:00)
[2023-06-17] MEDS: THIAMINE 100 MG TAB PO SCH (20:55)
[2023-06-17] MEDS ORDERED: VASOPRESSIN INJ 20 UNITS in NS 499 ML IV SCH (21:00)
[2023-06-18] VITALS (17 sets, daily range): BP systolic 78–104; BP diastolic 47–74; TEMP 96.4–98.1; O2SAT 94–99
[2023-06-18] MEDS: oxyCODONE 5MG TAB PO PRN ×3 (00:16→20:16)
[2023-06-18 04:43] LABS: BASO # 0.1 10^3/uL (0.0-0.2); BASO % 0.6 % (0.0-1.0); EOS # 0.1 10^3/uL (0.0-0.5); EOS % 0.5 % (0.0-3.0); HEMATOCRIT 32.4 % (42.0-52.0); HEMOGLOBIN 10.9 g/dl (13.5-17.5); LYMPH # 1.2 10^3/uL (1.5-5.0); LYMPH % 12.5 % (24.0-44.0); MEAN CORPUSCULAR HEMOGLOBIN 26.1 pg (27.0-33.0); MEAN CORPUSCULAR HGB CONC 33.6 g/dl (32.0-36.5); MEAN CORPUSCULAR VOLUME 77.5 fl (80.0-96.0); MONO # 1.1 10^3/uL (0.0-0.8); MONO % 11.3 % (2.0-8.0); NEUTROPHILS # 7.4 10^3/uL (1.5-8.5); NEUTROPHILS % 74.3 % (36.0-66.0); PLATELET COUNT, AUTOMATED 216 10^3/uL (150-450); RED BLOOD COUNT 4.18 10^6/uL (4.30-6.10)
[2023-06-18] MEDS: MIDODRINE 2.5 MG TAB PO SCH ×2 (08:10→11:51)
[2023-06-18] MEDS: DULoxetine 30MG CAPSULE (CYMBALTA) PO SCH (08:11)
[2023-06-18] MEDS: PANTOPRAZOLE 40MG TAB (PROTONIX) PO SCH (08:11)
[2023-06-18] MEDS: MAGNESIUM OXIDE 400MG TAB (MAG-OX) PO SCH ×2 (08:11→20:16)
[2023-06-18] MEDS: FOLIC ACID 1MG TAB PO SCH (08:11)
[2023-06-18] MEDS: DAPAGLIFLOZIN PROPANEDIOL 10MG TABLET (FARXIGA) PO SCH (08:11)
[2023-06-18] MEDS: TAMSULOSIN 0.4 MG CAP PO SCH (08:11)
[2023-06-18] MEDS: CEFDINIR 300 MG CAP (OMNICEF) PO SCH ×2 (08:11→20:14)
[2023-06-18] MEDS: MULTIVITAMINS/MINERALS THERAP 1 TAB PO SCH (08:12)
[2023-06-18] MEDS: POTASSIUM CHLORIDE 10MEQ SR TABLET PO SCH (08:12)
[2023-06-18] MEDS: APIXABAN 5 MG TAB (ELIQUIS) PO SCH ×2 (08:12→20:17)
[2023-06-18] MEDS: AMIODARONE 200 MG TAB (PACERONE) PO SCH ×2 (08:12→20:17)
[2023-06-18] MEDS: METOPROLOL TART 12.5 MG PER 1/2 TAB PO SCH ×2 (08:13→20:17)
[2023-06-18] MEDS: DOXYCYCLINE HYCLATE 100MG TABLET PO SCH ×2 (08:13→20:17)
[2023-06-18] MEDS ORDERED: LIDOCAINE 5% (LIDODERM) PATCH TD PRN (11:35)
[2023-06-18] MEDS ORDERED: FUROSEMIDE injection 250 MG in D5W 225 ML IV SCH (12:00)
[2023-06-18] MEDS ORDERED: MIDODRINE 2.5 MG TAB PO ONE (12:55)
[2023-06-18 13:39] LABS: CALCIUM LEVEL 9.9 MG/DL (8.4-10.2); CREATININE FOR GFR 1.7 MG/DL (0.7-1.5); GLOMERULAR FILTRATION RATE 46.2 (>60); POTASSIUM SERUM 5.2 MEQ/L (3.6-5.0)
[2023-06-18 13:40] LABS: MAGNESIUM LEVEL 2.3 MG/DL (1.7-2.2)
[2023-06-18 13:42] LABS: CALCIUM LEVEL 9.7 MG/DL (8.4-10.2); CREATININE FOR GFR 1.5 MG/DL (0.7-1.5); GLOMERULAR FILTRATION RATE 53.4 (>60); MAGNESIUM LEVEL 2.2 MG/DL (1.7-2.2); POTASSIUM SERUM 4.8 MEQ/L (3.6-5.0)
[2023-06-18] MEDS ORDERED: MIDODRINE 2.5 MG TAB PO SCH (16:00)
[2023-06-18] MEDS: THIAMINE 100 MG TAB PO SCH (20:16)
[2023-06-19] VITALS (25 sets, daily range): BP systolic 76–102; BP diastolic 52–86; TEMP 96.6–98; O2SAT 85–100
[2023-06-19 05:13] LABS: BASO # 0.1 10^3/uL (0.0-0.2); BASO % 0.6 % (0.0-1.0); EOS # 0.1 10^3/uL (0.0-0.5); EOS % 0.6 % (0.0-3.0); HEMATOCRIT 32.8 % (42.0-52.0); HEMOGLOBIN 10.9 g/dl (13.5-17.5); LYMPH # 1.2 10^3/uL (1.5-5.0); LYMPH % 12.6 % (24.0-44.0); MEAN CORPUSCULAR HGB CONC 33.2 g/dl (32.0-36.5); MEAN CORPUSCULAR VOLUME 78.1 fl (80.0-96.0); MONO # 1.2 10^3/uL (0.0-0.8); MONO % 11.9 % (2.0-8.0); NEUTROPHILS # 7.1 10^3/uL (1.5-8.5); NEUTROPHILS % 73.8 % (36.0-66.0); PLATELET COUNT, AUTOMATED 225 10^3/uL (150-450); WHITE BLOOD COUNT 9.6 10^3/uL (4.0-10.0)
[2023-06-19] MEDS: DAPAGLIFLOZIN PROPANEDIOL 10MG TABLET (FARXIGA) PO SCH (08:30)
[2023-06-19] MEDS: MAGNESIUM OXIDE 400MG TAB (MAG-OX) PO SCH ×2 (08:31→21:03)
[2023-06-19] MEDS: DOXYCYCLINE HYCLATE 100MG TABLET PO SCH (08:31)
[2023-06-19] MEDS: MIDODRINE 5 MG TAB PO SCH ×3 (08:31→16:23)
[2023-06-19] MEDS: FOLIC ACID 1MG TAB PO SCH (08:32)
[2023-06-19] MEDS: TAMSULOSIN 0.4 MG CAP PO SCH (08:32)
[2023-06-19] MEDS: AMIODARONE 200 MG TAB (PACERONE) PO SCH ×2 (08:32→21:03)
[2023-06-19] MEDS: APIXABAN 5 MG TAB (ELIQUIS) PO SCH ×2 (08:32→21:03)
[2023-06-19] MEDS: DULoxetine 30MG CAPSULE (CYMBALTA) PO SCH (08:33)
[2023-06-19] MEDS: MULTIVITAMINS/MINERALS THERAP 1 TAB PO SCH (08:33)
[2023-06-19] MEDS: PANTOPRAZOLE 40MG TAB (PROTONIX) PO SCH (08:33)
[2023-06-19] MEDS: METOPROLOL TART 12.5 MG PER 1/2 TAB PO SCH (08:33)
[2023-06-19] MEDS ORDERED: CEFDINIR 300 MG CAP (OMNICEF) PO SCH (09:15)
[2023-06-19] MEDS ORDERED: PIPERACILLIN/TAZOBACTAM SOD 3.375 GM in D5W MINI-BAG PLUS 50 ML IV SCH (13:00)
[2023-06-19 14:11] LABS: CREATININE FOR GFR 1.7 MG/DL (0.7-1.5); GLOMERULAR FILTRATION RATE 46.2 (>60)
[2023-06-19 14:12] LABS: CALCIUM LEVEL 9.7 MG/DL (8.4-10.2); MAGNESIUM LEVEL 2.3 MG/DL (1.7-2.2); POTASSIUM SERUM 5.1 MEQ/L (3.6-5.0)
[2023-06-19] MEDS: AMOXICILLIN 875 MG TAB PO SCH (21:02)
[2023-06-19] MEDS: THIAMINE 100 MG TAB PO SCH (21:03)
[2023-06-19 22:34] LABS: PROCALCITONIN 0.73 ng/ml
[2023-06-20] VITALS (13 sets, daily range): BP systolic 88–114; BP diastolic 60–80; TEMP 96.6–98.1; O2SAT 90–100
[2023-06-20 05:16] LABS: BASO # 0.1 10^3/uL (0.0-0.2); BASO % 0.6 % (0.0-1.0); EOS # 0.1 10^3/uL (0.0-0.5); EOS % 0.8 % (0.0-3.0); HEMATOCRIT 30.7 % (42.0-52.0); HEMOGLOBIN 10.4 g/dl (13.5-17.5); LYMPH % 9.8 % (24.0-44.0); MEAN CORPUSCULAR HEMOGLOBIN 26.4 pg (27.0-33.0); MEAN CORPUSCULAR HGB CONC 33.9 g/dl (32.0-36.5); MEAN CORPUSCULAR VOLUME 77.9 fl (80.0-96.0); MONO % 9.9 % (2.0-8.0); NEUTROPHILS # 7.8 10^3/uL (1.5-8.5); NEUTROPHILS % 78.3 % (36.0-66.0); PLATELET COUNT, AUTOMATED 169 10^3/uL (150-450); RED BLOOD COUNT 3.94 10^6/uL (4.30-6.10)
[2023-06-20 05:53] LABS: CALCIUM LEVEL 9.4 MG/DL (8.5-10.1); CREATININE FOR GFR 1.56 MG/DL (0.70-1.30); MAGNESIUM LEVEL 2.2 MG/DL (1.8-2.4); POTASSIUM SERUM 4.2 MMOL/L (3.5-5.1)
[2023-06-20] MEDS: PANTOPRAZOLE 40MG TAB (PROTONIX) PO SCH (08:48)
[2023-06-20] MEDS: AMOXICILLIN 875 MG TAB PO SCH ×2 (08:48→20:16)
[2023-06-20] MEDS: MAGNESIUM OXIDE 400MG TAB (MAG-OX) PO SCH ×2 (08:48→20:16)
[2023-06-20] MEDS: MIDODRINE 5 MG TAB PO SCH ×3 (08:48→16:56)
[2023-06-20] MEDS: FOLIC ACID 1MG TAB PO SCH (08:48)
[2023-06-20] MEDS: AMIODARONE 200 MG TAB (PACERONE) PO SCH ×2 (08:48→20:16)
[2023-06-20] MEDS: MULTIVITAMINS/MINERALS THERAP 1 TAB PO SCH (08:48)
[2023-06-20] MEDS: APIXABAN 5 MG TAB (ELIQUIS) PO SCH ×2 (08:48→20:16)
[2023-06-20] MEDS: DULoxetine 30MG CAPSULE (CYMBALTA) PO SCH (08:48)
[2023-06-20] MEDS: DAPAGLIFLOZIN PROPANEDIOL 10MG TABLET (FARXIGA) PO SCH (08:48)
[2023-06-20] MEDS: TAMSULOSIN 0.4 MG CAP PO SCH (08:49)
[2023-06-20 10:06] LABS: C REACTIVE PROTEIN QUANTITATIV 7.1 MG/DL (<1.0)
[2023-06-20 11:15] LABS: C REACTIVE PROTEIN QUANTITATIV 101.38 MG/L (1.00-3.00)
[2023-06-20] MEDS ORDERED: NEOSPORIN TOP OINT 15GM TOP ONE (14:55)
[2023-06-20] MEDS: oxyCODONE 5MG TAB PO PRN (16:55)
[2023-06-20] MEDS: THIAMINE 100 MG TAB PO SCH (20:16)
[2023-06-21 03:45] VITALS: BP 80/58; TEMP 96.4; O2SAT 94
[2023-06-21] MEDS ORDERED: MIDODRINE 5 MG TAB PO ONE (03:55)
[2023-06-21 05:04] LABS: BASO # 0.1 10^3/uL (0.0-0.2); BASO % 0.6 % (0.0-1.0); EOS # 0.1 10^3/uL (0.0-0.5); EOS % 0.9 % (0.0-3.0); HEMATOCRIT 32.2 % (42.0-52.0); HEMOGLOBIN 10.7 g/dl (13.5-17.5); LYMPH % 10.9 % (24.0-44.0); MEAN CORPUSCULAR HEMOGLOBIN 25.9 pg (27.0-33.0); MEAN CORPUSCULAR HGB CONC 33.2 g/dl (32.0-36.5); MONO # 0.9 10^3/uL (0.0-0.8); MONO % 10.1 % (2.0-8.0); NEUTROPHILS # 6.8 10^3/uL (1.5-8.5); NEUTROPHILS % 76.9 % (36.0-66.0); PLATELET COUNT, AUTOMATED 160 10^3/uL (150-450); RED BLOOD COUNT 4.13 10^6/uL (4.30-6.10); WHITE BLOOD COUNT 8.9 10^3/uL (4.0-10.0)
[2023-06-21 05:23] LABS: C REACTIVE PROTEIN QUANTITATIV 6.3 MG/DL (<1.0)
[2023-06-21 05:24] LABS: CALCIUM LEVEL 9.4 MG/DL (8.5-10.1); CREATININE FOR GFR 1.39 MG/DL (0.70-1.30); GLOMERULAR FILTRATION RATE 58.3 (>60); MAGNESIUM LEVEL 2.1 MG/DL (1.8-2.4); POTASSIUM SERUM 3.9 MMOL/L (3.5-5.1)
[2023-06-21 08:00] VITALS: TEMP 96.8; O2SAT 96
[2023-06-21] MEDS: PANTOPRAZOLE 40MG TAB (PROTONIX) PO SCH (08:31)
[2023-06-21] MEDS: MAGNESIUM OXIDE 400MG TAB (MAG-OX) PO SCH (08:31)
[2023-06-21] MEDS: AMOXICILLIN 875 MG TAB PO SCH (08:31)
[2023-06-21] MEDS: APIXABAN 5 MG TAB (ELIQUIS) PO SCH (08:31)
[2023-06-21] MEDS: DAPAGLIFLOZIN PROPANEDIOL 10MG TABLET (FARXIGA) PO SCH (08:31)
[2023-06-21] MEDS: MIDODRINE 5 MG TAB PO SCH ×2 (08:31→11:08)
[2023-06-21] MEDS: AMIODARONE 200 MG TAB (PACERONE) PO SCH (08:31)
[2023-06-21] MEDS: DULoxetine 30MG CAPSULE (CYMBALTA) PO SCH (08:31)
[2023-06-21] MEDS: MULTIVITAMINS/MINERALS THERAP 1 TAB PO SCH (08:32)
[2023-06-21] MEDS: TAMSULOSIN 0.4 MG CAP PO SCH (08:32)
[2023-06-21] MEDS: FOLIC ACID 1MG TAB PO SCH (08:32)
[2023-06-21 08:53] VITALS: BP 90/62
[2023-06-21 12:00] VITALS: TEMP 97; O2SAT 96
[2023-06-21] MEDS ORDERED: SCOPOLAMINE 1MG TRANSDERMAL PATCH TOP PRN (12:20)
[2023-06-21] MEDS ORDERED: LORazepam 2 MG/ML 1ML VIAL IV PRN (12:20)
[2023-06-21] MEDS ORDERED: MORPHINE 2 MG/ML 1ML VIAL IV PRN ×2 (12:20→14:20)
[2023-06-21] MEDS ORDERED: HYDROMORPHONE HCL 0.5 MG/ 0.5 ML SYRINGE IV PRN (14:50)
[2023-06-21] MEDS: HYDROMORPHONE HCL 0.5 MG/ 0.5 ML SYRINGE IV PRN (15:21)
[2023-06-22] MEDS: HYDROMORPHONE HCL 0.5 MG/ 0.5 ML SYRINGE IV PRN ×3 (00:35→21:52)
[2023-06-22] MEDS: fentaNYL 25 MCG/HR PATCH TOP SCH (12:27)
[2023-06-23] MEDS: HYDROMORPHONE HCL 0.5 MG/ 0.5 ML SYRINGE IV PRN ×2 (04:49→08:40)
[2023-06-23 08:00] VITALS: TEMP 97.7; O2SAT 97
[2023-06-23] MEDS: MORPHINE 10MG/0.5ML ORAL CONCENTRATE SOLUTION U/D SL PRN ×2 (11:49→20:49)
[2023-06-23] MEDS: LORazepam 1 MG TAB PO PRN (22:35)
[2023-06-24] MEDS: MORPHINE 10MG/0.5ML ORAL CONCENTRATE SOLUTION U/D SL PRN (20:21)
[2023-06-25] MEDS: FENTANYL REMOVAL DOCUMENTATION MISC XX SCH (11:51)
[2023-06-25] MEDS: fentaNYL 25 MCG/HR PATCH TOP SCH (11:52)
[2023-06-25] MEDS: MORPHINE 10MG/0.5ML ORAL CONCENTRATE SOLUTION U/D SL PRN ×2 (18:23→22:19)
[2023-06-26] MEDS ORDERED: oxyCODONE 5MG TAB PO PRN (09:55)
[2023-06-27] MEDS: MORPHINE 10MG/0.5ML ORAL CONCENTRATE SOLUTION U/D SL PRN (10:41)
[2023-06-28] MEDS: fentaNYL 25 MCG/HR PATCH TOP SCH (13:00)
[2023-06-28] MEDS: FENTANYL REMOVAL DOCUMENTATION MISC XX SCH (13:01)
[2023-06-29] MEDS ORDERED: ONDANSETRON 4MG 2ML VIAL IV PRN (00:20)
[2023-06-29] MEDS ORDERED: ONDANSETRON 4MG TAB PO PRN (00:50)
[2023-06-29] MEDS: oxyCODONE 5MG TAB PO PRN ×3 (04:49→23:49)
[2023-06-30 00:19] VITALS: O2SAT 95
[2023-06-30] MEDS: oxyCODONE 5MG TAB PO PRN ×2 (12:52→21:19)
[2023-06-30] MEDS ORDERED: FLEET ENEMA PR PRN (13:15)
[2023-06-30] MEDS ORDERED: BISACODYL 5MG TAB PO PRN (13:15)
[2023-06-30] MEDS ORDERED: MOM 30ML SUSPENSION UDC PO ONE (13:15)
[2023-06-30] MEDS ORDERED: MOM 30ML SUSPENSION UDC PO PRN (13:15)
[2023-06-30] MEDS ORDERED: SENOKOT S TAB PO PRN (13:15)
[2023-06-30] MEDS ORDERED: MIRALAX *UNIT DOSE* 17GM PACKET PO PRN (13:15)
[2023-07-01] MEDS: oxyCODONE 5MG TAB PO PRN ×4 (05:26→21:16)
[2023-07-01] MEDS: fentaNYL 25 MCG/HR PATCH TOP SCH (12:33)
[2023-07-01] MEDS: FENTANYL REMOVAL DOCUMENTATION MISC XX SCH (12:39)
[2023-07-02] MEDS: oxyCODONE 5MG TAB PO PRN (05:23)
[2023-07-02] MEDS: MORPHINE 10MG/0.5ML ORAL CONCENTRATE SOLUTION U/D SL PRN (19:43)
[2023-07-03] MEDS: LORazepam 1 MG TAB PO PRN (18:17)
[2023-07-03] MEDS: MORPHINE 10MG/0.5ML ORAL CONCENTRATE SOLUTION U/D SL PRN (18:17)
[2023-07-04] MEDS: MORPHINE 10MG/0.5ML ORAL CONCENTRATE SOLUTION U/D SL PRN (02:56)
[2023-07-04] MEDS: FENTANYL REMOVAL DOCUMENTATION MISC XX SCH (12:29)
[2023-07-04] MEDS: fentaNYL 25 MCG/HR PATCH TOP SCH (12:30)
[2023-07-05] MEDS: MORPHINE 10MG/0.5ML ORAL CONCENTRATE SOLUTION U/D SL PRN ×5 (00:27→23:24)
[2023-07-05] MEDS: LORazepam 1 MG TAB PO PRN ×3 (16:54→23:24)
[2023-07-07] MEDS: FENTANYL REMOVAL DOCUMENTATION MISC XX SCH (12:02)
[2023-07-07] MEDS: fentaNYL 25 MCG/HR PATCH TOP SCH (12:03)
[2023-07-07] MEDS: LORazepam 1 MG TAB PO PRN ×2 (12:04→22:47)
[2023-07-07] MEDS: MORPHINE 10MG/0.5ML ORAL CONCENTRATE SOLUTION U/D SL PRN ×2 (15:15→22:47)
[2023-07-08] MEDS: LORazepam 1 MG TAB PO PRN ×3 (00:57→17:10)
[2023-07-08] MEDS: MORPHINE 10MG/0.5ML ORAL CONCENTRATE SOLUTION U/D SL PRN ×3 (00:57→17:10)
[2023-07-09] MEDS: LORazepam 1 MG TAB PO PRN ×2 (12:05→18:27)
[2023-07-09] MEDS: MORPHINE 10MG/0.5ML ORAL CONCENTRATE SOLUTION U/D SL PRN ×2 (12:05→18:27)
[2023-07-10] MEDS: MORPHINE 10MG/0.5ML ORAL CONCENTRATE SOLUTION U/D SL PRN ×3 (05:58→16:30)
[2023-07-10] MEDS: LORazepam 1 MG TAB PO PRN ×3 (05:58→16:30)
[2023-07-10] MEDS: fentaNYL 25 MCG/HR PATCH TOP SCH (12:07)
[2023-07-10] MEDS: FENTANYL REMOVAL DOCUMENTATION MISC XX SCH (12:07)
[2023-07-11] MEDS: MORPHINE 10MG/0.5ML ORAL CONCENTRATE SOLUTION U/D SL PRN ×5 (01:05→23:51)
[2023-07-11] MEDS: LORazepam 1 MG TAB PO PRN ×3 (01:05→16:43)
[2023-07-12] MEDS: MORPHINE 10MG/0.5ML ORAL CONCENTRATE SOLUTION U/D SL PRN ×3 (05:33→17:49)
[2023-07-12] MEDS: LORazepam 1 MG TAB PO PRN ×2 (05:33→12:00)
[2023-07-13] MEDS: MORPHINE 10MG/0.5ML ORAL CONCENTRATE SOLUTION U/D SL PRN ×11 (00:46→20:22)
[2023-07-13] MEDS: LORazepam 1 MG TAB PO PRN ×2 (00:46→06:36)
[2023-07-13] MEDS: fentaNYL 25 MCG/HR PATCH TOP SCH (12:09)
[2023-07-13] MEDS: FENTANYL REMOVAL DOCUMENTATION MISC XX SCH (12:10)
[2023-07-14] MEDS: MORPHINE 10MG/0.5ML ORAL CONCENTRATE SOLUTION U/D SL PRN ×7 (06:37→16:33)
[2023-07-14] MEDS: LORazepam 1 MG TAB PO PRN ×3 (09:55→15:28)
== END 2023-07-14 18:11 | disposition expired | DRG 291 ==
LOC: M ED 10:59 → EDBD 10:59 → M ED INP 11:00 → OBSVTOIN 11:46 → M PCU 18:39 → M ICU 06-15 00:41 → M PCU 06-19 19:43 → M MS5PR 06-22 10:33
PROVIDERS: ADMIT Internal Medicine; ATTEND Internal Medicine
PROC: 02HV33Z Insertion of Infusion Device into Superior Vena Cava, Percutaneous Approach (ICD-10-PCS; principal; 2023-06-16)
DX: I13.0 Hypertensive heart and chronic kidney disease with heart failure and stage 1 through stage 4 chronic kidney disease, or unspecified chronic kidney disease (principal); J18.9 Pneumonia, unspecified organism; I50.23 Acute on chronic systolic (congestive) heart failure; G93.40 Encephalopathy, unspecified; I47.20 Ventricular tachycardia, unspecified; N17.9 Acute kidney failure, unspecified; E87.1 Hypo-osmolality and hyponatremia; M46.26 Osteomyelitis of vertebra, lumbar region; R57.0 Cardiogenic shock; I95.89 Other hypotension; I27.22 Pulmonary hypertension due to left heart disease; E87.5 Hyperkalemia; I42.6 Alcoholic cardiomyopathy; K70.31 Alcoholic cirrhosis of liver with ascites; Z95.3 Presence of xenogenic heart valve; Z95.2 Presence of prosthetic heart valve; Z79.01 Long term (current) use of anticoagulants; Z51.5 Encounter for palliative care; Z66 Do not resuscitate; J45.909 Unspecified asthma, uncomplicated; F32.A Depression, unspecified; N40.0 Benign prostatic hyperplasia without lower urinary tract symptoms; F17.200 Nicotine dependence, unspecified, uncomplicated; D50.9 Iron deficiency anemia, unspecified; E02 Subclinical iodine-deficiency hypothyroidism; F17.210 Nicotine dependence, cigarettes, uncomplicated; K21.9 Gastro-esophageal reflux disease without esophagitis; N18.9 Chronic kidney disease, unspecified; F41.9 Anxiety disorder, unspecified; R33.9 Retention of urine, unspecified; Z79.899 Other long term (current) drug therapy; Z90.49 Acquired absence of other specified parts of digestive tract; Z86.711 Personal history of pulmonary embolism